=== PATIENT | female | born 1935 | race Caucasian/White ===

== ENCOUNTER 2022-08-26 10:53 | Emergency (ER) | payer MEDICARE, SELFPAY ==
[2022-08-26] VITALS (7 sets, daily range): BP systolic 128–187; BP diastolic 50–112; PULSE 62–107; RESP 16–24; TEMP 36.6–36.7; O2SAT 94–99; BMI 28.3
--- NOTE | ~2022-08-26 | XR_ITS ---
EXAMINATION: XR CHEST CLINICAL INFORMATION: Chest pain, shortness of breath. COMPARISON: 12/18/2016 chest radiograph. TECHNIQUE: 2 views of the chest were obtained. FINDINGS: No significant abnormality is noted involving the heart, lungs, mediastinum, bony thorax or soft tissues. XR/XR chest 2V IMPRESSION: No acute cardiopulmonary process.
--- OUTSIDE RECORDS SUMMARY | 2022-08-26 11:15 | XMS_ITS | Continuity of Care Document ---
:1935 Author Organization [facility] Adult Address [address] [place] [address]- Care Team Providers Name Role Phone Raza BARAHONA, Natalia Gonzales Primary Care Physician Encounter [facility] Date(s): 12/18/20 - 01/17/21 [facility] Adult [address] [place] [address]- Attending Physician: AdmGonzalez gomez Admitting Physician: Admtr, Ar8 Referring Physician: Admtr, Ar8 Allergies, Adverse Reactions, Alerts Substance Reaction Severity Status NKA Active Immunizations Given and Recorded Vaccine Date Status Refusal Reason influenza virus vaccine, inactivated 05/01/20 Given influenza virus vaccine, inactivated1 06/01/19 Given influenza virus vaccine, inactivated 05/25/18 Recorded Diphtheria/Tet/Pertussis, Acel (oldterm)2 03/05/17 Given pneumococcal 13-valent vaccine 10/09/16 Given 1Result Comment: [facility]-[id number] Note: declined Medications amLODIPine 10 mg oral tablet 10 mg, 1, tablet, By Mouth, Daily, # 90 tablet, Refills 0, Tot. Refills 0, Maintenance, 10/18/20 13:14:00 EDT, Route to Pharmacy Electronically, [facility] #[id number], Office visit needed for further refills., 150, cm, 05/01/20 9:47:00 EDT, Height Start Date: 10/18/20 Status: Orderedaspirin 81 mg oral delayed release tablet 81 mg, 1, tablet, By Mouth, Daily, # 30 tablet, Refills 0, Maintenance, 12/24/16 9:31:57 Start Date: 12/24/16 Status: Ordereddocusate sodium 100 mg oral capsule 100 mg, 1, capsule, By Mouth, 2 times a day, PRN, # 60 capsule, Refills 0, Tot. Refills 0, Maintenance, for constipation, 05/01/20 9:36:00 EDT, Route to Pharmacy Electronically, [facility] # [facility], 150, cm, 05/01/20 9:15:00 EDT, Height Start Date: 05/01/20 Stop Date: 05/31/20 Status: Orderedestradiol 0.1 mg/g vaginal cream See Instructions, 2 gm daily at bedtime for 2 weeks then reduce to 1gm daily at bedtime. then 1 gm 2times a week, # 42.5 Gm, 6 Refills, Maintenance, 09/12/19 16:11:00 EST, [facility] # 50, 150, cm, 09/12/19 11:05:00 EST, Height Start Date: 09/12/19 Status: Orderedfamotidine 20 mg oral tablet 20 mg, 1, tablet, By Mouth, 2 times a day, # 60 tablet, Refills 3, Tot. Refills 3, Maintenance, 05/01/20 9:36:00 EDT, Route to Pharmacy Electronically, [facility] # [facility], 150, cm, 05/01/20 9:15:00 EDT, Height Start Date: 05/01/20 Status: Orderedgabapentin 100 mg oral capsule 200 mg, 2, capsule, By Mouth, 3 times a day, # 180 capsule, Refills 1, Tot. Refills 1, Maintenance, 12/20/20 11:24:00 EDT, Route to Pharmacy Electronically, [facility] # [facility], 150, cm, 12/18/20 15:01:00 EDT, Height Start Date: 12/20/20 Status: Orderedhydrochlorothiazide-lisinopril 25 mg-20 mg oral tablet 1 tablet, By Mouth, Daily, # 90 tablet, 1 Refills, Maintenance, 07/19/20 13:21:00 EST, Tablet, [facility] # [facility], 1 tablet By Mouth Daily, 150, cm, 05/01/20 9:47:00 EDT, Height Start Date: 07/19/20 Status: OrderedtiZANidine 2 mg oral tablet See Instructions, PRN, take 1-2 tablets By Mouth Every 8 hours, # 30 tablet, Refills 0, Tot. Refills0, Maintenance, Pain , Moderate, 08/23/19 15:28:00 EST, Instructions Replace Required Details, [facility], [facility] # [facility],... Start Date: 08/23/19 Status: Ordered Problem List Condition Effective Dates Status Health Status Informant Arthritis(Confirmed) Active Benign hypertension(Confirmed) Active Chronic lower back pain(Confirmed) Active Constipation(Confirmed) Active Gout(Confirmed) Active Hyperglycemia(Confirmed) Active Osteopenia(Confirmed) Active Paresthesia(Confirmed) Active Social History Social History Type Response Smoking Status Never smoker entered on: 10/09/16 Sex
--- OUTSIDE RECORDS SUMMARY | 2022-08-26 11:15 | XMS_ITS | Continuity of Care Document ---
:1935 Author Organization [facility] Adult Address [address] [place] [address]- Care Team Providers Name Role Phone Raza BARAHONA, Natalia Gonzales Primary Care Physician Encounter [facility] Date(s): 09/12/19 - 09/22/19 [facility] Adult [address] [place] [address]- [facility] Attending Physician: Admtr, Ar8 Admitting Physician: Admtr, Jose8 Referring Physician: Admtr, Ar8 Allergies, Adverse Reactions, Alerts Substance Reaction Severity Status NKA Active Immunizations Given and Recorded Vaccine Date Status Refusal Reason influenza virus vaccine, inactivated1 06/01/19 Given influenza virus vaccine, inactivated 05/25/18 Recorded Diphtheria/Tet/Pertussis, Acel (oldterm)2 03/05/17 Given pneumococcal 13-valent vaccine 10/09/16 Given 1Result Comment: [facility]-[id number] Note: declined Medications amLODIPine 10 mg oral tablet 10 mg, 1, tablet, By Mouth, Daily, # 90 tablet, Refills 1, Tot. Refills 1, Maintenance, 04/25/19 11:26:15 EDT, Route to Pharmacy Electronically, [id number], [facility] # [facility] Start Date: 04/25/19 Status: Orderedaspirin 81 mg oral delayed release tablet 81 mg, 1, tablet, By Mouth, Daily, # 30 tablet, Refills 0, Maintenance, 12/24/16 9:31:57 Start Date: 12/24/16 Status: Orderedestradiol 0.1 mg/g vaginal cream See Instructions, 2 gm daily at bedtime for 2 weeks then reduce to 1gm daily at bedtime. then 1 gm 2times a week, # 42.5 Gm, 6 Refills, Maintenance, 09/12/19 16:11:00 EST, [facility] # 50, 150, cm, 09/12/19 11:05:00 EST, Height Start Date: 09/12/19 Status: Orderedgabapentin 100 mg oral capsule 200 mg, 2, capsule, By Mouth, 3 times a day, # 180 capsule, Refills 1, Tot. Refills 1, Maintenance, 09/12/19 11:00:00 EST, Route to Pharmacy Electronically, [facility] # 50, 150, cm, 09/12/19 10:43:00 EST, Height Start Date: 09/12/19 Status: Orderedhydrochlorothiazide-lisinopril 25 mg-20 mg oral tablet 1 tablet, By Mouth, Daily, # 90 tablet, 1 Refills, Maintenance, 03/17/19 15:07:22 EDT, Tablet, 1 tablet By Mouth Daily Start Date: 03/17/19 Status: OrderedtiZANidine 2 mg oral tablet See Instructions, PRN, take 1-2 tablets By Mouth Every 8 hours, # 30 tablet, Refills 0, Tot. Refills0, Maintenance, Pain , Moderate, 08/23/19 15:28:00 EST, Instructions Replace Required Details, [facility], [facility] # [facility],... Start Date: 08/23/19 Status: Ordered Problem List Condition Effective Dates Status Health Status Informant Arthritis(Confirmed) Active Benign hypertension(Confirmed) Active Chronic lower back pain(Confirmed) Active Constipation(Confirmed) Active Gout(Confirmed) Active Hyperglycemia(Confirmed) Active Osteopenia(Confirmed) Active Paresthesia(Confirmed) Active Social History Social History Type Response Smoking Status Never smoker entered on: 10/09/16 Sex
--- OUTSIDE RECORDS SUMMARY | 2022-08-26 11:15 | XMS_ITS | Continuity of Care Document ---
:1935 Author Organization [facility] Address [address] [place] [address]- Care Team Providers Name Role Phone Raza BARAHONA, Natalia Gonzales Primary Care Physician Encounter [facility] Date(s): 06/17/22 - 07/17/[address] [address] Attending Physician: Gonzalez Farrell Admitting Physician: AdmtrGonzalez Referring Physician: AdmtrGonzalez Allergies, Adverse Reactions, Alerts No Known Allergies Immunizations Given and Recorded Vaccine Date Status Refusal Reason influenza virus vaccine, inactivated 07/03/21 Recorded influenza virus vaccine, inactivated 05/01/20 Given influenza virus vaccine, inactivated1 06/01/19 Given influenza virus vaccine, inactivated 05/25/18 Recorded influenza virus vaccine, inactivated 05/17/18 Recorded influenza virus vaccine, inactivated 05/18/17 Recorded influenza virus vaccine, inactivated 05/31/16 Recorded influenza virus vaccine, inactivated 05/10/10 Recorded SARS-CoV-2 (COVID-19) mRNA-1273 vaccine 10/13/20 Recorded SARS-CoV-2 (COVID-19) mRNA-1273 vaccine 09/15/20 Recorded Diphtheria/Tet/Pertussis, Acel (oldterm)2 03/05/17 Given pneumococcal 13-valent vaccine 10/09/16 Given 1Result Comment: [facility]-[id number] Note: declined Medications amlodipine-benazepril 5 mg-40 mg oral capsule 1 capsule, By Mouth, Daily, # 30 capsule, 0 Refills, Maintenance, 04/28/22 13:29:00 EDT, Capsule, [id number], Partial fill upon patient request if the prescription is for a schedule II opioid drug., 1 capsule By Mouth Daily, 150, cm, 04/28/22... Start Date: 04/28/22 Status: Orderedaspirin 81 mg oral delayed release tablet 81 mg, 1, tablet, By Mouth, Daily, # 30 tablet, Refills 0, Maintenance, 12/24/16 9:31:57 Start Date: 12/24/16 Status: Ordereddocusate sodium 100 mg oral capsule 100 mg, 1, capsule, By Mouth, 2 times a day, PRN, # 60 capsule, Refills 0, Tot. Refills 0, Maintenance, for constipation, 05/01/20 9:36:00 EDT, Route to Pharmacy Electronically, [facility] # [facility], 150, cm, 05/01/20 9:15:00 EDT, Height Start Date: 05/01/20 Stop Date: 05/31/20 Status: Orderedestradiol 0.1 mg/g vaginal cream See Instructions, 2 gm daily at bedtime for 2 weeks then reduce to 1gm daily at bedtime. then 1 gm 2times a week, # 42.5 Gm, 6 Refills, Maintenance, 09/12/19 16:11:00 EST, [facility] # 50, 150, cm, 09/12/19 11:05:00 EST, Height Start Date: 09/12/19 Status: Orderedfamotidine 20 mg oral tablet 20 mg, 1, tablet, By Mouth, 2 times a day, # 60 tablet, Refills 3, Tot. Refills 3, Maintenance, 05/01/20 9:36:00 EDT, Route to Pharmacy Electronically, [facility] # [facility], 150, cm, 05/01/20 9:15:00 EDT, Height Start Date: 05/01/20 Status: Orderedgabapentin 100 mg oral capsule 200 mg, 2, capsule, By Mouth, 3 times a day, # 180 capsule, Refills 1, Tot. Refills 1, Maintenance, 01/08/22 10:45:00 EDT, [id number], [facility], cm, 01/08/22 10:44:00 EDT, Height Start Date: 01/08/22 Status: OrderedtiZANidine 2 mg oral tablet 4 mg, 2, tablet, By Mouth, 3 times a day, PRN, # 30 tablet, Refills 0, Tot. Refills 0, Maintenance, Pain , Severe, 06/02/22 14:44:00 EDT, Route to Pharmacy Electronically, [facility] #[id number], Partial fill upon patient request if the prescription is fo... Start Date: 06/02/22 Status: OrderedtiZANidine 2 mg oral tablet See Instructions, PRN, take 1-2 tablets By Mouth Every 8 hours, # 30 tablet, Refills 0, Tot. Refills0, Maintenance, Pain , Moderate, 08/23/19 15:28:00 EST, Instructions Replace Required Details, [facility], [facility] # [facility],... Start Date: 08/23/19 Status: Ordered Problem List Condition Confirmation Course Effective Dates Status Health Stat us Informant Arthritis Confirmed Active Benign hypertension Confirmed Active Chronic lower back Confirmed Active pain Constipation Confirmed Active Gout Confirmed Active Obese class I Confirmed Active Osteopenia Confirmed Active Paresthesia Confirmed Active Prediabetes Confirmed Active Social History Social History Type Response Smoking Status Never smoker entered on: 10/09/16 Sex Patient Care team information Care Team PersonnelName: Raza BARAHONA, Natalia Gonzales Position: [facility] Associate Professional Member Role: PCP Address: Address: [address] [place] [id number]- Care Team Related PersonsName: ALLEN KILPATRICK Address: [place] [address]
--- OUTSIDE RECORDS SUMMARY | 2022-08-26 11:15 | XMS_ITS | Continuity of Care Document ---
:1935 Author Organization [facility] Adult Address [address] [place] [address]- Care Team Providers Name Role Phone Raza BARAHONA, Natalia Gonzales Primary Care Physician Encounter [facility] Date(s): 02/06/22 - 02/13/22 [facility] Adult [address] [place] [address]- Encounter Diagnosis Benign hypertension (Discharge Diagnosis) - 02/06/22 Prediabetes (Discharge Diagnosis) - 02/06/22 Attending Physician: Navneet Saleem MD Referring Physician: Raza BARAHONA, Natalia Gonzales Allergies, Adverse Reactions, Alerts No Known Allergies Immunizations Given and Recorded Vaccine Date Status Refusal Reason influenza virus vaccine, inactivated 05/01/20 Given influenza virus vaccine, inactivated1 06/01/19 Given influenza virus vaccine, inactivated 05/25/18 Recorded Diphtheria/Tet/Pertussis, Acel (oldterm)2 03/05/17 Given pneumococcal 13-valent vaccine 10/09/16 Given 1Result Comment: [facility]-[id number] Note: declined Medications aspirin 81 mg oral delayed release tablet 81 mg, 1, tablet, By Mouth, Daily, # 30 tablet, Refills 0, Maintenance, 12/24/16 9:31:57 Start Date: 12/24/16 Status: Ordereddocusate sodium 100 mg oral capsule 100 mg, 1, capsule, By Mouth, 2 times a day, PRN, # 60 capsule, Refills 0, Tot. Refills 0, Maintenance, for constipation, 05/01/20 9:36:00 EDT, Route to Pharmacy Electronically, [facility], 150, cm, 05/01/20 9:15:00 EDT, Height Start Date: 05/01/20 Stop Date: 05/31/20 Status: Orderedestradiol 0.1 mg/g vaginal cream See Instructions, 2 gm daily at bedtime for 2 weeks then reduce to 1gm daily at bedtime. then 1 gm 2times a week, # 42.5 Gm, 6 Refills, Maintenance, 09/12/19 16:11:00 EST, [facility] # [facility], 150, cm, 09/12/19 11:05:00 EST, Height Start Date: 09/12/19 Status: Orderedfamotidine 20 mg oral tablet 20 mg, 1, tablet, By Mouth, 2 times a day, # 60 tablet, Refills 3, Tot. Refills 3, Maintenance, 05/01/20 9:36:00 EDT, Route to Pharmacy Electronically, [facility] # [facility], 150, cm, 05/01/20 9:15:00 EDT, Height Start Date: 05/01/20 Status: Orderedgabapentin 100 mg oral capsule 200 mg, 2, capsule, By Mouth, 3 times a day, # 180 capsule, Refills 1, Tot. Refills 1, Maintenance, 01/08/22 10:45:00 EDT, [id number], 150, cm, 01/08/22 10:44:00 EDT, Height Start Date: 01/08/22 Status: Orderedhydrochlorothiazide-lisinopril 25 mg-20 mg oral tablet 1 tablet, By Mouth, Daily, # 30 tablet, 6 Refills, Maintenance, 02/06/22 11:24:00 EDT, Tablet, Partial fill upon patient request if the prescription is for a schedule II opioid drug. Start Date: 02/06/22 Status: OrderedtiZANidine 2 mg oral tablet See Instructions, PRN, take 1-2 tablets By Mouth Every 8 hours, # 30 tablet, Refills 0, Tot. Refills0, Maintenance, Pain , Moderate, 08/23/19 15:28:00 EST, Instructions Replace Required Details, [facility] Electron[facility], [facility] # [facility],... Start Date: 08/23/19 Status: Ordered Problem List Condition Effective Dates Status Health Status Informant Arthritis(Confirmed) Active Benign hypertension(Confirmed) Active Chronic lower back pain(Confirmed) Active Constipation(Confirmed) Active Gout(Confirmed) Active Osteopenia(Confirmed) Active Paresthesia(Confirmed) Active Prediabetes(Confirmed) Active Diagnosis Diagnosis Type Effective Dates Health Clinical Infor mant Status Service Benign hypertension Discharge 02/06/22 Diagnosis Prediabetes Discharge 02/06/22 Diagnosis Vital Signs Most recent to oldest [Reference Range]: 1 2 Height 150 cm 150 cm (02/06/22 11:30 AM) (02/06/22 11:02 AM) Weight 65.5 kg (02/06/22 11:02 AM) Oxygen Saturation [94-100 %] 98 % (02/06/22 11:02 AM) Pulse Rate [55-90 bpm] 73 bpm (02/06/22 11:02 AM) Body Mass Index [18.5-24.99] 29.11 *H* (02/06/22 11:02 AM) Blood Pressure [90-138/55-84 mm Hg] 139/60 mm Hg 147/ 71 mm Hg *H* *H* (02/06/22 11:30 AM) (02/06/22 11:02 AM) Temperature [96.8-100.4 DegF] 98.5 DegF (02/06/22 11:02 AM) Blood pressure sites Arm, left (02/06/22 11:02 AM) Temperature Route Temporal (02/06/22 11:02 AM) Weight Obtained Via Standing scale (02/06/22 11:02 AM) Social History Social History Type Response Smoking Status Never smoker entered on: 10/09/16 Sex
--- OUTSIDE RECORDS SUMMARY | 2022-08-26 11:15 | XMS_ITS | Continuity of Care Document ---
:1935 Author Organization [facility] Adult Address [address] [place] [address]- Care Team Providers Name Role Phone Raza BARAHONA, Natalia Gonzales Primary Care Physician Encounter [facility] Date(s): 12/11/21 - 01/10/22 [facility] Adult [address] [place] [address]- Allergies, Adverse Reactions, Alerts No Known Allergies Immunizations Given and Recorded Vaccine Date Status Refusal Reason influenza virus vaccine, inactivated 05/01/20 Given influenza virus vaccine, inactivated1 06/01/19 Given influenza virus vaccine, inactivated 05/25/18 Recorded Diphtheria/Tet/Pertussis, Acel (oldterm)2 03/05/17 Given pneumococcal 13-valent vaccine 10/09/16 Given 1Result Comment: [facility]-[id number] Note: declined Medications aspirin 81 mg oral [...] 05/01/20 9:36:00 EDT, Route to Pharmacy Electronically, [facility] # [facility], 150, cm, 05/01/20 9:15:00 EDT, Height Start Date: 05/01/20 Stop Date: 05/31/20 Status: Orderedestradiol 0.1 mg/g vaginal cream See Instructions, 2 gm daily at bedtime for 2 weeks then reduce to 1gm daily at bedtime. then 1 gm 2times a week, # 42.5 Gm, 6 Refills, Maintenance, 09/12/19 16:11:00 EST, [facility] # [facility], 150, cm, 09/12/19 11:05:00 EST, Height Start Date: 09/12/19 Status: Orderedfamotidine 20 mg oral tablet 20 mg, 1, tablet, By Mouth, 2 times a day, # 60 tablet, Refills 3, Tot. Refills 3, Maintenance, 05/01/20 9:36:00 EDT, Route to Pharmacy Electronically, [facility] # [facility], 150, cm, 05/01/20 9:15:00 EDT, Height Start Date: 05/01/20 Status: Orderedgabapentin 100 mg oral capsule 200 mg, 2, capsule, By Mouth, 3 times a day, # 180 capsule, Refills 1, Tot. Refills 1, Maintenance, 01/08/22 10:45:00 EDT, [id number], [facility], cm, 01/08/22 10:44:00 EDT, Height Start Date: 01/08/22 Status: Orderedhydrochlorothiazide-losartan 25 mg-100 mg oral tablet 1 tablet, By Mouth, Daily, # 30 tablet, 0 Refills, Maintenance, 01/08/22 11:00:00 EDT, Tablet, [facility] #[id number], Partial fill upon patient request if the prescription is for a schedule II opioid drug., 1 tablet By Mouth Daily, 150, cm, 01/08/22 10:5... Start Date: 01/08/22 Status: OrderedtiZANidine 2 mg oral tablet See Instructions, PRN, take 1-2 tablets By Mouth Every 8 hours, # 30 tablet, Refills 0, Tot. Refills0, Maintenance, Pain , Moderate, 08/23/19 15:28:00 EST, Instructions Replace Required Details, [facility] Electron[facility], [facility] # [facility],... Start Date: 08/23/19 Status: Ordered Problem List Condition Effective Dates Status Health Status Informant Arthritis(Confirmed) Active Benign hypertension(Confirmed) Active Chronic lower back pain(Confirmed) Active Constipation(Confirmed) Active Gout(Confirmed) Active Hyperglycemia(Confirmed) Active Osteopenia(Confirmed) Active Paresthesia(Confirmed) Active Social History Social History Type Response Smoking Status Never smoker entered on: 10/09/16 Sex
--- OUTSIDE RECORDS SUMMARY | 2022-08-26 11:15 | XMS_ITS | Continuity of Care Document ---
:1935 Author Organization [facility] Address [address] [place] [address]- Care Team Providers Name Role Phone Raza BARAHONA, Natalia Gonzales Primary Care Physician Encounter [facility] Date(s): 06/04/22 - 07/24/[address] [address]- Encounter Diagnosis Cervicalgia (Final) - Discharge Disposition: A-D/C Home Attending Physician: Natalia Person NP Admitting Physician: Natalia Person NP Referring Physician: Raza BARAHONA, Natalia Gonzales Allergies, [...] pneumococcal 13-valent vaccine 10/09/16 Given 1Result Comment: [facility]-[id number] Note: declined Medications amlodipine-benazepril 5 mg-40 mg oral capsule 1 capsule, By Mouth, Daily, # 30 capsule, 0 Refills, Maintenance, 04/28/22 13:29:00 EDT, Capsule, [id number], Partial fill upon patient request if the [...] 05/01/20 9:36:00 EDT, Route to Pharmacy Electronically, [facility], 150, cm, 05/01/20 9:15:00 EDT, Height Start Date: 05/01/20 Stop Date: 05/31/20 Status: Orderedestradiol 0.1 mg/g vaginal cream See Instructions, 2 gm daily at bedtime for 2 weeks then reduce to 1gm daily at bedtime. then 1 gm 2times a week, # 42.5 Gm, 6 Refills, Maintenance, 09/12/19 16:11:00 EST, [facility] # [facility], 150, cm, 09/12/19 11:05:00 EST, Height Start Date: 09/12/19 Status: Orderedfamotidine 20 mg oral tablet 20 mg, 1, tablet, By Mouth, 2 times a day, # 60 tablet, Refills 3, Tot. Refills 3, Maintenance, 05/01/20 9:36:00 EDT, Route to Pharmacy Electronically, [facility] # [facility], 150, cm, 05/01/20 9:15:00 EDT, Height Start Date: 05/01/20 Status: Orderedgabapentin 100 mg oral capsule 200 mg, 2, capsule, By Mouth, 3 times a day, # 180 capsule, Refills 1, Tot. Refills 1, Maintenance, 01/08/22 10:45:00 EDT, [id number], cm, 01/08/22 10:44:00 EDT, Height Start Date: 01/08/22 Status: OrderedtiZANidine 2 mg oral tablet 4 mg, 2, tablet, By Mouth, 3 times a day, PRN, # 30 tablet, Refills 0, Tot. Refills 0, Maintenance, Pain , Severe, 06/02/22 14:44:00 EDT, Route to Pharmacy Electronically, [facility] #[id number], Partial fill upon patient request if the prescription is fo... Start Date: 06/02/22 Status: OrderedtiZANidine 2 mg oral tablet See Instructions, PRN, take 1-2 tablets By Mouth Every 8 hours, # 30 tablet, Refills 0, Tot. Refills0, Maintenance, Pain , Moderate, 08/23/19 15:28:00 EST, Instructions Replace Required Details, [facility] Electron[facility], [facility] # [facility],... Start Date: 08/23/19 Status: [...] Team PersonnelName: Raza BARAHONA, Natalia Gonzales Position: [facility] Associate Professional Member Role: PCP Address: Address: [address] [place] [address]- Care Team Related PersonsName: ALLEN KILPATRICK Address: [place] [address]
--- OUTSIDE RECORDS SUMMARY | 2022-08-26 11:15 | XMS_ITS | Continuity of Care Document ---
:1935 Author Organization [facility] Adult Address [address] [place] [address]- Care Team Providers Name Role Phone Raza BARAHONA, Natalia Gonzales Primary Care Physician Encounter [facility] Date(s): 02/27/20 - 03/28/20 [facility] [address] [place] [address]- [facility] Attending Physician: Admjason, Jose8 Admitting Physician: Admtr, Jose8 Referring Physician: Admtr, Ar8 Allergies, Adverse Reactions, Alerts Substance Reaction Severity Status NKA Active Immunizations Given and Recorded Vaccine Date Status Refusal Reason influenza virus vaccine, inactivated1 06/01/19 Given influenza virus vaccine, inactivated 05/25/18 Recorded Diphtheria/Tet/Pertussis, Acel (oldterm)2 03/05/17 Given pneumococcal 13-valent vaccine 10/09/16 Given 1Result Comment: [id number] Note: declined Medications amLODIPine 10 mg oral tablet 10 mg, 1, tablet, By Mouth, Daily, # 90 tablet, Refills 0, Tot. Refills 0, Maintenance, 10/20/19 14:18:00 EDT, Route to Pharmacy Electronically, [facility] # [facility], 150, cm, 09/12/19 11:05:00 EST, Height Start Date: 10/20/19 Status: Orderedaspirin 81 mg oral delayed release [...] 09/12/19 11:00:00 EST, Route to Pharmacy Electronically, [facility] # [facility], 150, cm, 09/12/19 10:43:00 EST, Height Start Date: 09/12/19 Status: Orderedhydrochlorothiazide-lisinopril 25 mg-20 mg oral tablet 1 tablet, By Mouth, Daily, # 90 tablet, 1 Refills, Maintenance, 10/10/19 15:34:00 EDT, Tablet, [facility] # [facility], 1 tablet By Mouth Daily, 150, cm, 09/12/19 11:05:00 EST, Height Start Date: 10/10/19 Status: OrderedtiZANidine 2 mg oral tablet See [...]
--- OUTSIDE RECORDS SUMMARY | 2022-08-26 11:15 | XMS_ITS | Continuity of Care Document ---
:1935 Author Organization [facility] [place] Adult Address [address] [place] [address]- Care Team Providers Name Role Phone Raza BARAHONA, Natalia Gonzales Primary Care Physician Encounter [facility] [place] Date(s): 12/24/21 - 01/23/22 [facility] [place] Adult [address] [place] [address]- Allergies, Adverse Reactions, Alerts No Known Allergies Immunizations Given and Recorded Vaccine Date Status Refusal Reason influenza virus vaccine, inactivated 05/01/20 Given influenza virus vaccine, inactivated1 06/01/19 Given influenza virus vaccine, inactivated 05/25/18 Recorded Diphtheria/Tet/Pertussis, Acel (oldterm)2 03/05/17 Given pneumococcal 13-valent vaccine 10/09/16 Given 1Result Comment: [facility]-[id number] Note: declined Medications aspirin 81 mg oral [...] 05/01/20 9:36:00 EDT, Route to Pharmacy Electronically, [facility] # [facility], 150, cm, 05/01/20 9:15:00 EDT, Height Start Date: 05/01/20 Stop Date: 05/31/20 Status: Orderedestradiol 0.1 mg/g vaginal cream See Instructions, 2 gm daily at bedtime for 2 weeks then reduce to 1gm daily at bedtime. then 1 gm 2times a week, # 42.5 Gm, 6 Refills, Maintenance, 09/12/19 16:11:00 EST, [facility] # [facility], 150, cm, 09/12/19 11:05:00 EST, Height Start Date: 09/12/19 Status: Orderedfamotidine 20 mg oral tablet 20 mg, 1, tablet, By Mouth, 2 times a day, # 60 tablet, Refills 3, Tot. Refills 3, Maintenance, 05/01/20 9:36:00 EDT, Route to Pharmacy Electronically, [facility] # [facility], 150, cm, 05/01/20 9:15:00 EDT, Height Start Date: 05/01/20 Status: Orderedgabapentin 100 mg oral capsule 200 mg, 2, capsule, By Mouth, 3 times a day, # 180 capsule, Refills 1, Tot. Refills 1, Maintenance, 01/08/22 10:45:00 EDT, [id number], cm, 01/08/22 10:44:00 EDT, Height Start Date: 01/08/22 Status: Orderedhydrochlorothiazide-losartan 25 mg-100 mg oral tablet 1 tablet, By Mouth, Daily, # 30 tablet, 0 Refills, Maintenance, 01/08/22 11:00:00 EDT, Tablet, [facility]/pharmacy #[id number], Partial fill upon patient [...] Instructions Replace Required Details, [facility], [facility] # [facility],... Start Date: 08/23/19 Status: Ordered Problem List Condition Effective Dates Status Health Status Informant Arthritis(Confirmed) Active Benign hypertension(Confirmed) Active Chronic lower back pain(Confirmed) Active Constipation(Confirmed) Active Gout(Confirmed) Active Hyperglycemia(Confirmed) Active Osteopenia(Confirmed) Active Paresthesia(Confirmed) Active Social History Social History Type Response Smoking Status Never smoker entered on: 10/09/16 Sex
--- OUTSIDE RECORDS SUMMARY | 2022-08-26 11:15 | XMS_ITS | Continuity of Care Document ---
:1935 Author Organization [facility] Adult Address [address] [place] [address]- Care Team Providers Name Role Phone Raza BARAHONA, Natalia Gonzales Primary Care Physician Encounter [facility] [place] Date(s): 02/17/20 - 03/28/20 [facility] Adult [address] [place] [address]- [facility] Attending Physician: Natalia Person NP Allergies, Adverse Reactions, Alerts Substance Reaction Severity Status NKA Active Immunizations Given and Recorded Vaccine Date Status Refusal Reason influenza virus vaccine, inactivated1 06/01/19 Given influenza virus vaccine, inactivated 05/25/18 Recorded Diphtheria/Tet/Pertussis, Acel (oldterm)2 03/05/17 Given pneumococcal 13-valent vaccine 10/09/16 Given 1Result Comment: [facility]-[id number] Note: declined Medications amLODIPine 10 mg oral tablet 10 mg, 1, tablet, By Mouth, Daily, # 90 tablet, Refills 0, Tot. Refills 0, Maintenance, 10/20/19 14:18:00 EDT, Route to Pharmacy Electronically, [facility] # 50, 150, cm, 09/12/19 11:05:00 [...] 6 Refills, Maintenance, 09/12/19 16:11:00 EST, [facility] # [facility], 150, cm, 09/12/19 11:05:00 EST, Height Start Date: 09/12/19 Status: Orderedgabapentin 100 mg oral capsule 200 mg, 2, capsule, By Mouth, 3 times a day, # 180 capsule, Refills 1, Tot. Refills 1, Maintenance, 09/12/19 11:00:00 EST, Route to Pharmacy Electronically, [facility] # [facility], 150, cm, 09/12/19 10:43:00 EST, Height Start Date: 09/12/19 Status: Orderedhydrochlorothiazide-lisinopril 25 mg-20 mg oral tablet 1 tablet, By Mouth, Daily, # 90 tablet, 1 Refills, Maintenance, 10/10/19 15:34:00 EDT, [facility], 1 tablet By Mouth Daily, 150, cm, 09/12/19 11:05:00 EST, Height Start Date: 10/10/19 Status: OrderedtiZANidine 2 mg oral tablet See Instructions, PRN, take 1-2 tablets By Mouth Every 8 hours, # 30 tablet, Refills 0, Tot. Refills0, Maintenance, Pain , Moderate, 08/23/19 15:28:00 EST, Instructions Replace Required Details, [facility], [facility] # [facility],... Start Date: 08/23/19 Status: Ordered Problem List Condition Effective Dates Status Health Status Informant Arthritis(Confirmed) Active Benign hypertension(Confirmed) Active Chronic lower back pain(Confirmed) Active Constipation(Confirmed) Active Gout(Confirmed) Active Hyperglycemia(Confirmed) Active Osteopenia(Confirmed) Active Paresthesia(Confirmed) Active Social History Social History Type Response Smoking Status Never smoker entered on: 10/09/16 Sex
--- OUTSIDE RECORDS SUMMARY | 2022-08-26 11:16 | XMS_ITS | Continuity of Care Document ---
:1935 Author Organization [facility] Adult Address [address] [place] [address]- Care Team Providers Name Role Phone Raza BARAHONA, Natalia Gonzales Primary Care Physician [place] [facility] [place]): [place] 06/09/22 [facility] Adult [address] [place] [address]- Encounter Diagnosis Benign hypertension (Discharge Diagnosis) - 06/02/22 Attending Physician: Danyel BARAHONA, Luma Clarke Referring Physician: Navneet Saleem MD Allergies, Adverse Reactions, Alerts No Known Allergies [...] pneumococcal 13-valent vaccine 10/09/16 Given 1Result Comment: [facility]-[id number] Note: declined Medications amlodipine-benazepril 5 mg-40 mg oral capsule 1 capsule, By Mouth, Daily, # 30 capsule, 0 Refills, Maintenance, 04/28/22 13:29:00 EDT, Capsule, [id number], Partial fill upon patient request if the [...] 05/01/20 9:36:00 EDT, Route to Pharmacy Electronically, [facility] # [facility], 150, cm, 05/01/20 9:15:00 EDT, Height Start Date: 05/01/20 Stop Date: 05/31/20 Status: Orderedestradiol 0.1 mg/g vaginal cream See Instructions, 2 gm daily at bedtime for 2 weeks then reduce to 1gm daily at bedtime. then 1 gm 2times a week, # 42.5 Gm, 6 Refills, Maintenance, 09/12/19 16:11:00 EST, [facility] # [facility], 150, cm, 09/12/19 11:05:00 EST, Height Start Date: 09/12/19 Status: Orderedfamotidine 20 mg oral tablet 20 mg, 1, tablet, By Mouth, 2 times a day, # 60 tablet, Refills 3, Tot. Refills 3, Maintenance, 05/01/20 9:36:00 EDT, Route to Pharmacy Electronically, [facility] # [facility], 150, cm, 05/01/20 9:15:00 EDT, Height Start Date: 05/01/20 Status: Orderedgabapentin 100 mg oral capsule 200 mg, 2, capsule, By Mouth, 3 times a day, # 180 capsule, Refills 1, Tot. Refills 1, Maintenance, 01/08/22 10:45:00 EDT, [id number], cm, 01/08/22 10:44:00 EDT, Height Start Date: 01/08/22 Status: OrderedtiZANidine 2 mg oral tablet 4 mg, 2, tablet, By Mouth, 3 times a day, PRN, # 30 tablet, Refills 0, Tot. Refills 0, Maintenance, Pain , Severe, 06/02/22 14:44:00 EDT, Route to Pharmacy Electronically, [facility] #[id number], Partial fill upon patient request if the prescription is fo... Start Date: 06/02/22 Status: OrderedtiZANidine 2 mg oral tablet See Instructions, PRN, take 1-2 tablets By Mouth Every 8 hours, # 30 tablet, Refills 0, Tot. Refills0, Maintenance, Pain , Moderate, 08/23/19 15:28:00 EST, Instructions Replace Required Details, [facility], [facility] # [facility],... Start Date: 08/23/19 Status: Ordered Problem List Condition Confirmation Course Effective Dates Status Health Stat us Informant Arthritis Confirmed Active Benign hypertension Confirmed Active Chronic lower back Confirmed Active pain Constipation Confirmed Active Gout Confirmed Active Obese class I Confirmed Active Osteopenia Confirmed Active Paresthesia Confirmed Active Prediabetes Confirmed Active Diagnosis Diagnosis Type Effective Dates Health Clinical [facility] Status Service Benign hypertension Discharge 06/02/22 Diagnosis Vital Signs Most recent to oldest 1 2 3 [Reference Range]: Height 150 cm 150 cm 150 cm (06/02/22 1:34 PM) (06/02/22 1:34 PM) (06/02/22 1:09 PM) Weight 72.7 kg (06/02/22 1:09 PM) Oxygen Saturation [94-100 %] 99 % (06/02/22 1:09 PM) Pulse Rate [55-90 bpm] 81 bpm (06/02/22 1:09 PM) Body Mass Index [18.5-24.99 32.31 kg/m2 kg/m2] *>HHI* (06/02/22 1:09 PM) Blood Pressure [90-138/55-84 159/53 mm Hg 159/57 mm Hg 159 /61 mm Hg mm Hg] *H* *H* *H* (06/02/22 1:34 PM) (06/02/22 1:34 PM) (06/02/22 1:09 PM) Blood pressure sites Arm, left (06/02/22 1:09 PM) Weight Obtained Via Standing scale (06/02/22 1:09 PM) Social History Social History Type Response Smoking Status Never smoker entered on: 10/09/16 Sex Patient Care team information Care Team PersonnelName: Raza BARAHONA, Natalia Gonzales Position: S PCO Associate Professional Member Role: PCP Address: Address: [address] [place] [address]- Care Team Related PersonsName: ALLEN KILPATRICK Address: [place] [address]
--- OUTSIDE RECORDS SUMMARY | 2022-08-26 11:16 | XMS_ITS | Continuity of Care Document ---
:1935 Author Organization [facility] Address [address] [place] [address]- Care Team Providers Name Role Phone Raza BARAHONA, Natalia Gonzales Primary Care Physician [place] [facility] [place] Date(s): 09/12/19 - 09/12/[address] [address]- [facility] Attending Physician: Natalia Person NP Allergies, Adverse Reactions, Alerts Substance Reaction Severity Status NKA Active Immunizations Given and Recorded Vaccine Date Status Refusal Reason influenza virus vaccine, inactivated1 06/01/19 Given influenza virus vaccine, inactivated 05/25/18 Recorded Diphtheria/Tet/Pertussis, Acel (oldterm)2 03/05/17 Given pneumococcal 13-valent vaccine 10/09/16 Given 1Result Comment: [facility]-[id number] Note: declined Medications amLODIPine 10 mg oral tablet 10 mg, 1, tablet, By Mouth, Daily, # 90 tablet, Refills 1, Tot. Refills 1, Maintenance, 04/25/19 11:26:15 EDT, Route to Pharmacy Electronically, [id number], [facility] # [facility] Start Date: [...] 09/12/19 11:00:00 EST, Route to Pharmacy Electronically, [facility] # [facility], 150, cm, 09/12/19 10:43:00 [...] Active Hyperglycemia(Confirmed) Active Osteopenia(Confirmed) Active Paresthesia(Confirmed) Active Results Orders for Microbiology Reports Name Date Urine Culture (URINE CULTURE) 09/12/19 Microbiology Reports TEST:Urine Culture STATUS:Unauthenticated BODY SITE: SOURCE:URINE COLLECTED DATE/TIME:09/12/19 11:38 AMUrine Culture SPECIMEN DESCRIPTION : URINE CLEAN CATCH/MIDSTREAM SPECIAL REQUESTS : NONE Reflexed from [id number] REPORT STATUS : PRELIMINARY REPORT Social History Social History Type Response Smoking Status Never smoker entered on: 10/09/16 Sex
--- OUTSIDE RECORDS SUMMARY | 2022-08-26 11:16 | XMS_ITS | Continuity of Care Document ---
:1935 Author Organization [facility] Adult Address [address] [place] [address]- Care Team Providers Name Role Phone Raza BARAHONA, Natalia Gonzales Primary Care Physician Encounter [facility] [place] Date(s): 06/02/22 - 07/02/22 [facility] Adult [address] [place] [address]- Attending Physician: Admjason, Gonzalez Admitting Physician: Admtr, Ar8 Referring Physician: Admtr, Ar8 Allergies, Adverse Reactions, Alerts No Known Allergies [...] pneumococcal 13-valent vaccine 10/09/16 Given 1Result Comment: [facility]-[id number] Note: declined Medications amlodipine-benazepril 5 mg-40 mg oral capsule 1 capsule, By Mouth, Daily, # 30 capsule, 0 Refills, Maintenance, 04/28/22 13:29:00 EDT, [facility]apsule, [id number], Partial fill upon patient request if the [...] 01/08/22 10:45:00 EDT, [id number], cm, 01/08/22 10:44:00 EDT, Height Start Date: 01/08/22 Status: OrderedtiZANidine 2 mg oral tablet 4 mg, 2, tablet, By Mouth, 3 times a day, PRN, # 30 tablet, Refills 0, Tot. Refills 0, Maintenance, Pain , Severe, 06/02/22 14:44:00 EDT, Route to Pharmacy Electronically, [facility]/pharmacy #[id number], Partial fill upon patient request if the prescription is fo... Start Date: 06/02/22 Status: OrderedtiZANidine 2 mg oral tablet See Instructions, PRN, take 1-2 tablets By Mouth Every 8 hours, # 30 tablet, Refills 0, Tot. Refills0, Maintenance, Pain , Moderate, 08/23/19 15:28:00 EST, Instructions Replace Required Details, [facility] Electron[facility], [email or web address] # [facility],... Start Date: 08/23/19 Status: [...] Status Never smoker entered on: 10/09/16 Sex EKG study Event Display: EKG Authored Date: Note Event Display: Non BH Lab Results Authored Date: Event Display: Non BH Cardiovascular Results Authored Date: Event Display: Non BH Lab Results Authored Date: Patient Care team information Care Team PersonnelName: Raza BARAHONA, Natalia Gonzales Position: S PCO Associate Professional Member Role: PCP Address: Address: [address] [place] [address]- Care Team Related PersonsName: ALLEN KILPATRICK Address: [place] [address]
--- OUTSIDE RECORDS SUMMARY | 2022-08-26 11:16 | XMS_ITS | Continuity of Care Document ---
:1935 Author Organization [facility] Address [address] [place] [address]- Care Team Providers Name Role Phone Raza BARAHONA, Natalia Gonzales Primary Care Physician Encounter [facility] [place] [facility] [place] [id number] Date(s): 12/06/21 - 01/05/22 [facility] [address], [place] [address] Attending Physician: Gonzalez Farrell Admitting Physician: AdmGonzalez gomez Referring Physician: AdmtrGonzalez Allergies, Adverse Reactions, Alerts No Known Allergies Immunizations Given and Recorded Vaccine Date Status Refusal Reason influenza virus vaccine, inactivated 05/01/20 Given influenza virus vaccine, inactivated1 06/01/19 Given influenza virus vaccine, inactivated 05/25/18 Recorded Diphtheria/Tet/Pertussis, Acel (oldterm)2 03/05/17 Given pneumococcal 13-valent vaccine 10/09/16 Given 1Result Comment: [facility]-[id number] Note: declined Medications amLODIPine 10 mg oral tablet 1 tablet, By Mouth, Daily, # 90 tablet, 0 Refills, Maintenance, 12/31/21 15:31:00 EDT, [facility]/pharm[facility] #[id number], 150, cm, 09/19/21 15:50:00 EST, Height Start Date: 12/31/21 Status: Orderedaspirin 81 mg oral delayed release tablet 81 mg, 1, tablet, By Mouth, Daily, # 30 tablet, Refills 0, Maintenance, 12/24/16 9:31:57 Start Date: 12/24/16 Status: Ordereddocusate sodium 100 mg oral capsule 100 mg, 1, capsule, By Mouth, 2 times a day, PRN, # 60 capsule, Refills 0, Tot. Refills 0, Maintenance, for constipation, 05/01/20 9:36:00 EDT, Route to Pharmacy Electronically, [facility] # [facility], 150, cm, 05/01/20 9:15:00 EDT, Height Start Date: 05/01/20 Stop Date: 05/31/20 Status: Orderedestradiol 0.1 mg/g vaginal cream See Instructions, 2 gm daily at bedtime for 2 weeks then reduce to 1gm daily at bedtime. then 1 gm 2times a week, # 42.5 Gm, 6 Refills, Maintenance, 09/12/19 16:11:00 EST, [facility] # [facility], 150, cm, 09/12/19 11:05:00 EST, Height Start Date: 09/12/19 Status: Orderedfamotidine 20 mg oral tablet 20 mg, 1, tablet, By Mouth, 2 times a day, # 60 tablet, Refills 3, Tot. Refills 3, Maintenance, 05/01/20 9:36:00 EDT, Route to Pharmacy Electronically, [facility] # [facility], 150, cm, 05/01/20 9:15:00 EDT, Height Start Date: 05/01/20 Status: Orderedgabapentin 100 mg oral capsule 200 mg, 2, capsule, By Mouth, 3 times a day, # 180 capsule, Refills 1, Tot. Refills 1, Maintenance, 12/20/20 11:24:00 EDT, Route to Pharmacy Electronically, [facility] # [facility], 150, cm, 12/18/20 15:01:00 EDT, Height Start Date: 12/20/20 Status: Orderedhydrochlorothiazide-lisinopril 25 mg-20 mg oral tablet 1 tablet, By Mouth, Daily, # 90 tablet, 1 Refills, Maintenance, 07/19/20 13:21:00 EST, Tablet, [facility], 1 tablet By Mouth Daily, 150, cm, 05/01/20 9:47:00 EDT, Height Start Date: 07/19/20 Status: OrderedPaxlovid Rx Paxlovid Rx, See Instructions, # 30 tablet, Refills 0, Tot. Refills 0, Maintenance, 300mg nirmatrelvir (two 150mg tablets) with 100mg ritonavir (one tablet). All 3 tablets taken together twice daily for 5 days, with or without food., 12/06/21 10:53:00... Start Date: 12/06/21 Status: OrderedtiZANidine 2 mg oral tablet See Instructions, PRN, take 1-2 tablets By Mouth Every 8 hours, # 30 tablet, Refills 0, Tot. Refills0, Maintenance, Pain , Moderate, 08/23/19 15:28:00 EST, Instructions Replace Required Details, [facility], [facility] # [facility],... Start Date: 08/23/19 Status: Ordered Problem List Condition Effective Dates Status Health Status Informant Arthritis(Confirmed) Active Benign hypertension(Confirmed) Active Chronic lower back pain(Confirmed) Active Constipation(Confirmed) Active Gout(Confirmed) Active Hyperglycemia(Confirmed) Active Obese class I(Confirmed) Active Osteopenia(Confirmed) Active Paresthesia(Confirmed) Active Social History Social History Type Response Smoking Status Never smoker entered on: 10/09/16 Sex
--- OUTSIDE RECORDS SUMMARY | 2022-08-26 11:16 | XMS_ITS | Continuity of Care Document ---
:1935 Author Organization [facility] Adult Address [address] [place] [address]- Care Team Providers Name Role Phone Raza BARAHONA, Natalia Gonzales Primary Care Physician Encounter [facility] [place] Date(s): 12/20/21 - 01/26/22 [facility] Adult [address] [place] [address]- Attending Physician: Not on Staff, Attending MD Allergies, Adverse Reactions, Alerts No Known Allergies Immunizations Given and Recorded Vaccine Date Status Refusal Reason influenza virus vaccine, inactivated 05/01/20 Given influenza virus vaccine, inactivated1 06/01/19 Given influenza virus vaccine, inactivated 05/25/18 Recorded Diphtheria/Tet/Pertussis, Acel (oldterm)2 03/05/17 Given pneumococcal 13-valent vaccine 10/09/16 Given 1Result Comment: [facility]-[id number] Note: declined Medications aspirin 81 mg oral [...] 05/01/20 9:36:00 EDT, Route to Pharmacy Electronically, [facility] # [facility], 150, cm, 05/01/20 9:15:00 [...] 01/08/22 10:45:00 EDT, [id number], cm, 01/08/22 10:44:00 EDT, Height Start Date: 01/08/22 Status: Orderedhydrochlorothiazide-losartan 25 mg-100 mg oral tablet 1 tablet, By Mouth, Daily, # 30 tablet, 0 Refills, Maintenance, 01/08/22 11:00:00 EDT, Tablet, [facility]/pharmacy #[id number], Partial fill upon patient request if [...] Instructions Replace Required Details, [facility], [facility] # [facility],... Start Date: 08/23/19 Status: Ordered Problem List Condition Effective Dates Status Health Status Informant Arthritis(Confirmed) Active Benign hypertension(Confirmed) Active Chronic lower back pain(Confirmed) Active Constipation(Confirmed) Active Gout(Confirmed) Active Hyperglycemia(Confirmed) Active Osteopenia(Confirmed) Active Paresthesia(Confirmed) Active Social History Social History Type Response Smoking Status Never smoker entered on: 10/09/16 Sex
--- OUTSIDE RECORDS SUMMARY | 2022-08-26 11:16 | XMS_ITS | Continuity of Care Document ---
:1935 Author Organization [facility] Adult Address [address] [place] [address]- Care Team Providers Name Role Phone Raza BARAHONA, Natalia Gonzales Primary Care Physician Encounter [facility] Date(s): 09/19/21 - 09/26/21 [facility] Adult [address] [place] [address]- Attending Physician: Harper BANEGAS, Navneet Corley Allergies, Adverse Reactions, Alerts No Known Allergies Immunizations Given and Recorded Vaccine Date Status Refusal Reason influenza virus vaccine, inactivated 05/01/20 Given influenza virus vaccine, inactivated1 06/01/19 Given influenza virus vaccine, inactivated 05/25/18 Recorded Diphtheria/Tet/Pertussis, Acel (oldterm)2 03/05/17 Given pneumococcal 13-valent vaccine 10/09/16 Given 1Result Comment: [facility]-[id number] Note: declined Medications amLODIPine 10 mg oral tablet See Instructions, TAKE ONE TABLET BY MOUTH ONCE DAILY, # 90 tablet, 0 Refills, 09/20/21 9:15:00 EST,[facility] #[id number], 150, cm, 09/19/21 15:50:00 EST, Height Start Date: 09/20/21 Status: Orderedaspirin 81 mg oral delayed release tablet 81 mg, 1, tablet, By Mouth, Daily, # 30 tablet, Refills 0, Maintenance, 12/24/16 9:31:57 Start Date: 12/24/16 Status: Ordereddocusate sodium 100 mg oral capsule 100 mg, 1, capsule, By Mouth, 2 times a day, PRN, # 60 capsule, Refills 0, Tot. Refills 0, Maintenance, for constipation, 05/01/20 9:36:00 EDT, Route to Pharmacy Electronically, [facility], 150, cm, 05/01/20 9:15:00 [...] 12/20/20 11:24:00 EDT, Route to Pharmacy Electronically, [facility] # [facility], 150, cm, 12/18/20 15:01:00 EDT, Height Start Date: 12/20/20 Status: Orderedhydrochlorothiazide-lisinopril 25 mg-20 mg oral tablet 1 tablet, By Mouth, Daily, # 90 tablet, 1 Refills, Maintenance, 07/19/20 13:21:00 EST, Tablet, [facility], 1 tablet By Mouth Daily, 150, cm, 05/01/20 9:47:00 EDT, Height Start Date: 07/19/20 Status: OrderedtiZANidine 2 mg oral tablet See Instructions, PRN, take 1-2 tablets By Mouth Every 8 hours, # 30 tablet, Refills 0, Tot. Refills0, Maintenance, Pain , Moderate, 08/23/19 15:28:00 EST, Instructions Replace Required Details, [facility], [facility] # [facility],... Start Date: 08/23/19 Status: Ordered Problem List Condition Effective Dates Status Health Status Informant Arthritis(Confirmed) Active Benign hypertension(Confirmed) Active Chronic lower back pain(Confirmed) Active Constipation(Confirmed) Active Gout(Confirmed) Active Hyperglycemia(Confirmed) Active Obese class I(Confirmed) Active Osteopenia(Confirmed) Active Paresthesia(Confirmed) Active Vital Signs Most recent to oldest [Reference Range]: 1 Height 150 cm (09/19/21 3:50 PM) Weight 68.9 kg (09/19/21 3:50 PM) Oxygen Saturation [94-100 %] 98 % (09/19/21 3:50 PM) Pulse Rate [55-90 bpm] 82 bpm (09/19/21 3:50 PM) Body Mass Index [18.5-24.99] 30.62 *>HHI* (09/19/21 3:50 PM) Blood Pressure [90-138/55-84 mm Hg] 155/52 mm Hg *H* (09/19/21 3:50 PM) Blood pressure sites Arm, left (09/19/21 3:50 PM) Weight Obtained Via Standing scale (09/19/21 3:50 PM) Social History Social History Type Response Smoking Status Never smoker entered on: 10/09/16 Sex
--- OUTSIDE RECORDS SUMMARY | 2022-08-26 11:16 | XMS_ITS | Continuity of Care Document ---
:1935 Author Organization [facility] [place] Adult Address [address] [place] [address]- Care Team Providers Name Role Phone Raza BARAHONA, Natalia Gonzales Primary Care Physician En[place] [facility] [place](s): 05/01/20 - 05/08/20 [facility] [place] Adult [address] [place] [address]- [facility] Encounter Diagnosis Posterior neck pain (Discharge Diagnosis) - 05/01/20 Gastric reflux (Discharge Diagnosis) - 05/01/20 Constipation (Discharge Diagnosis) - 05/01/20 Carpal tunnel syndrome (Discharge Diagnosis) - 05/01/20 Attending Physician: Raza BARAHONA, Natalia Gonzales Allergies, Adverse Reactions, Alerts Substance Reaction Severity Status NKA Active Immunizations Given and Recorded Vaccine Date Status Refusal Reason influenza virus vaccine, inactivated 05/01/20 Given influenza virus vaccine, inactivated1 06/01/19 Given influenza virus vaccine, inactivated 05/25/18 Recorded Diphtheria/Tet/Pertussis, Acel (oldterm)2 03/05/17 Given pneumococcal 13-valent vaccine 10/09/16 Given 1Result Comment: [facility]-[id number] Note: declined Medications amLODIPine 10 mg oral tablet 10 mg, 1, tablet, By Mouth, Daily, # 90 tablet, Refills 1, Tot. Refills 1, Maintenance, 04/25/20 14:34:00 EDT, Route to Pharmacy Electronically, [facility] # [facility], 150, cm, 09/12/19 11:05:00 EST, Height Start Date: 04/25/20 Status: Orderedaspirin 81 mg oral delayed release tablet 81 mg, 1, tablet, By Mouth, Daily, # 30 tablet, Refills 0, Maintenance, 12/24/16 9:31:57 Start Date: 12/24/16 Status: Ordereddocusate sodium 100 mg oral capsule 100 mg, 1, capsule, By Mouth, 2 times a day, PRN, # 60 capsule, Refills 0, Tot. Refills 0, Maintenance, for constipation, 05/01/20 9:36:00 EDT, Route to Pharmacy Electronically, [facility] # [facility], 150, cm, 05/01/20 9:15:00 EDT, Height Start Date: 05/01/20 Stop Date: 05/31/20 Status: Orderedestradiol 0.1 mg/g vaginal cream See Instructions, 2 gm daily at bedtime for 2 weeks then reduce to 1gm daily at bedtime. then 1 gm 2times a week, # 42.5 Gm, 6 Refills, Maintenance, 09/12/19 16:11:00 EST, [facility] # 50, 150, cm, 09/12/19 11:05:00 EST, Height Start Date: 09/12/19 Status: Orderedfamotidine 20 mg oral tablet 20 mg, 1, tablet, By Mouth, 2 times a day, # 60 tablet, Refills 3, Tot. Refills 3, Maintenance, 05/01/20 9:36:00 EDT, Route to Pharmacy Electronically, [facility] # [facility], 150, cm, 05/01/20 9:15:00 EDT, Height Start Date: 05/01/20 Status: Orderedgabapentin 100 mg oral capsule 200 mg, 2, capsule, By Mouth, 3 times a day, # 180 capsule, Refills 1, Tot. Refills 1, Maintenance, 09/12/19 11:00:00 EST, Route to Pharmacy Electronically, [facility] # [facility], 150, cm, 09/12/19 10:43:00 EST, Height Start Date: 09/12/19 Status: Orderedhydrochlorothiazide-lisinopril 25 mg-20 mg oral tablet 1 tablet, By Mouth, Daily, # 90 tablet, 0 Refills, Maintenance, 04/18/20 23:44:00 EDT, [facility], 1 tablet By Mouth Daily, 150, cm, 09/12/19 11:05:00 EST, Height Start Date: 04/18/20 Status: OrderedtiZANidine 2 mg oral tablet See Instructions, PRN, take 1-2 tablets By Mouth Every 8 hours, # 30 tablet, Refills 0, Tot. Refills0, Maintenance, Pain , Moderate, 08/23/19 15:28:00 EST, Instructions Replace Required Details, [facility] Electron[facility], [facility] # [facility],... Start Date: 08/23/19 Status: Ordered Problem List Condition Effective Dates Status Health Status Informant Arthritis(Confirmed) Active Benign hypertension(Confirmed) Active Chronic lower back pain(Confirmed) Active Constipation(Confirmed) Active Gout(Confirmed) Active Hyperglycemia(Confirmed) Active Osteopenia(Confirmed) Active Paresthesia(Confirmed) Active Diagnosis Diagnosis Type Effective Dates Health Clinical Infor mant Status Service Posterior neck pain Discharge 05/01/20 Diagnosis Gastric reflux Discharge 05/01/20 Diagnosis Constipation Discharge 05/01/20 Diagnosis Carpal tunnel Discharge 05/01/20 syndrome Diagnosis Vital Signs Most recent to oldest [Reference Range]: 1 2 Height 150 cm 150 cm (05/01/20 9:47 AM) (05/01/20 9:15 AM) Weight 67.7 kg (05/01/20 9:15 AM) Oxygen Saturation [94-100 %] 98 % (05/01/20 9:15 AM) Pulse Rate [55-90 bpm] 65 bpm (05/01/20 9:15 AM) Body Mass Index [18.5-24.99] 30.09 *>HHI* (05/01/20 9:15 AM) Blood Pressure [90-138/55-84 mm Hg] 140/60 mm Hg 155/ 45 mm Hg *H* *H* (05/01/20 9:47 AM) (05/01/20 9:15 AM) Temperature [96.8-100.4 DegF] 97.7 DegF (05/01/20 9:15 AM) Blood pressure sites Arm, left (05/01/20 9:15 AM) Temperature Route Oral (05/01/20 9:15 AM) Weight Obtained Via Standing scale (05/01/20 9:15 AM) Social History Social History Type Response Smoking Status Never smoker entered on: 10/09/16 Sex
--- OUTSIDE RECORDS SUMMARY | 2022-08-26 11:16 | XMS_ITS | Continuity of Care Document ---
:1935 Author Organization [facility] Adult Address [address] [place] [address]- Care Team Providers Name Role Phone Raza BARAHONA, Natalia Gonzales Primary Care Physician Encounter [facility] [place] Date(s): 06/16/22 - 07/16/22 [facility] Adult [address] [place] [address]- Allergies, Adverse Reactions, Alerts No Known Allergies [...] 13-valent vaccine 10/09/16 Given 1Result Comment: [facility]-[id number] Note: declined Medications amlodipine-benazepril 5 mg-40 mg oral capsule 1 capsule, By Mouth, Daily, # 30 capsule, 0 Refills, Maintenance, 04/28/22 13:29:00 EDT, Capsule, [id number], Partial fill upon patient request if the [...] 01/08/22 10:45:00 EDT, [id number], cm, 01/08/22 10:44:00 EDT, Height Start Date: 01/08/22 Status: OrderedtiZANidine 2 mg oral tablet 4 mg, 2, tablet, By Mouth, 3 times a day, PRN, # 30 tablet, Refills 0, Tot. Refills 0, Maintenance, Pain , Severe, 06/02/22 14:44:00 EDT, Route to Pharmacy Electronically, [facility]/pharmacy #[id number], Partial fill upon patient request if the prescription is fo... Start Date: 06/02/22 Status: OrderedtiZANidine 2 mg oral tablet See Instructions, PRN, take 1-2 tablets By Mouth Every 8 hours, # 30 tablet, Refills 0, Tot. Refills0, Maintenance, Pain , Moderate, 08/23/19 15:28:00 EST, Instructions Replace Required Details, [facility] Electron[facility], [facility] # [facility],... Start Date: 08/23/19 Status: [...] Patient Care team information Care Team PersonnelName: Natalia Person NP [facility] Associate Professional Member Role: PCP Address: Address: [address] [place] [address]- Care Team Related PersonsName: ALLEN KILPATRICK Address: [place] [address]
--- OUTSIDE RECORDS SUMMARY | 2022-08-26 11:16 | XMS_ITS | Continuity of Care Document ---
:1935 Author Organization [facility] Adult Address [address] [place] [address]- Care Team Providers Name Role Phone Raza BARAHONA, Natalia Gonzales Primary Care Physician Encounter [facility] [place] Date(s): 05/01/20 - 05/31/20 [facility] Adult [address] [place] [address]- [facility] Attending Physician: Admtr, Jose8 Admitting Physician: Admtr, Ar8 Referring Physician: Admtr, Ar8 Allergies, Adverse Reactions, Alerts Substance Reaction Severity Status NKA Active Immunizations Given and Recorded Vaccine Date Status Refusal Reason influenza virus vaccine, inactivated 05/01/20 Given influenza virus vaccine, inactivated1 06/01/19 Given influenza virus vaccine, inactivated 05/25/18 Recorded Diphtheria/Tet/Pertussis, Acel (oldterm)2 03/05/17 Given pneumococcal 13-valent vaccine 10/09/16 Given 1Result Comment: [facility]-[id number] Note: declined Medications amLODIPine 10 mg oral tablet 10 mg, 1, tablet, By Mouth, Daily, # 90 tablet, Refills 1, Tot. Refills 1, Maintenance, 04/25/20 14:34:00 EDT, Route to Pharmacy Electronically, [facility] # [facility], 150, cm, 09/12/19 11:05:00 [...] 9:36:00 EDT, Route to Pharmacy Electronically, [facility] # [facility], 150, cm, 05/01/20 [...] 9:36:00 EDT, Route to Pharmacy Electronically, [facility] # [facility], 150, cm, 05/01/20 [...] Refills, Maintenance, 04/18/20 23:44:00 EDT, Tablet, [facility], 1 tablet By Mouth Daily, 150, cm, 09/12/19 11:05:00 EST, Height Start Date: 04/18/20 Status: OrderedtiZANidine 2 mg oral tablet See Instructions, PRN, take 1-2 tablets By Mouth Every 8 hours, # 30 tablet, Refills 0, Tot. Refills0, Maintenance, Pain , Moderate, 08/23/19 15:28:00 EST, Instructions Replace Required Details, [facility] Electronically, [facility] # [facility],... Start Date: 08/23/19 Status: Ordered Problem List Condition Effective Dates Status Health Status Informant Arthritis(Confirmed) Active Benign hypertension(Confirmed) Active Chronic lower back pain(Confirmed) Active Constipation(Confirmed) Active Gout(Confirmed) Active Hyperglycemia(Confirmed) Active Osteopenia(Confirmed) Active Paresthesia(Confirmed) Active Social History Social History Type Response Smoking Status Never smoker entered on: 10/09/16 Sex
--- OUTSIDE RECORDS SUMMARY | 2022-08-26 11:16 | XMS_ITS | Continuity of Care Document ---
:[address] [facility] Address [address] [place] [address]- Care Team Providers Name Role Phone Raza BARAHONA, Natalia Gonzales Primary Care Physician Encounter [facility] [place] Date(s): 12/06/21 - 12/13/21 [facility] [address] [place], [place] [address] Attending Physician: Not on Staff, Attending MD Referring Physician: Navneet Saleem MD Allergies, Adverse Reactions, Alerts No Known Allergies Immunizations Given and Recorded Vaccine Date Status Refusal Reason influenza virus vaccine, inactivated 05/01/20 Given influenza virus vaccine, inactivated1 06/01/19 Given influenza virus vaccine, inactivated 05/25/18 Recorded Diphtheria/Tet/Pertussis, Acel (oldterm)2 03/05/17 Given pneumococcal 13-valent vaccine 10/09/16 Given 1Result Comment: [facility]-[id number] Note: declined Medications amLODIPine 10 mg oral tablet See Instructions, TAKE ONE TABLET BY MOUTH ONCE DAILY, # 90 tablet, 0 Refills, 09/20/21 9:15:00 EST,[facility] #[id number], 150, cm, 09/19/21 15:50:00 EST, [...] 05/01/20 9:36:00 EDT, Route to Pharmacy Electronically, [facility], 150, cm, 05/01/20 9:15:00 EDT, Height Start Date: 05/01/20 Stop Date: 05/31/20 Status: Orderedestradiol 0.1 mg/g vaginal cream See Instructions, 2 gm daily at bedtime for 2 weeks then reduce to 1gm daily at bedtime. then 1 gm 2times a week, # 42.5 Gm, 6 Refills, Maintenance, 09/12/19 16:11:00 EST, [facility] # [facility], 150, cm, 09/12/19 11:05:00 EST, Height Start Date: 09/12/19 Status: Orderedfamotidine 20 mg oral tablet 20 mg, 1, tablet, By Mouth, 2 times a day, # 60 tablet, Refills 3, Tot. Refills 3, Maintenance, 05/01/20 9:36:00 EDT, Route to Pharmacy Electronically, [facility] # [facility], 150, cm, 05/01/20 9:15:00 EDT, Height Start Date: 05/01/20 Status: Orderedgabapentin 100 mg oral capsule 200 mg, 2, capsule, By Mouth, 3 times a day, # 180 capsule, Refills 1, Tot. Refills 1, Maintenance, 12/20/20 11:24:00 EDT, Route to Pharmacy Electronically, [facility] # [facility], 150, cm, 12/18/20 15:01:00 EDT, Height Start Date: 12/20/20 Status: Orderedhydrochlorothiazide-lisinopril 25 mg-20 mg oral tablet 1 tablet, By Mouth, Daily, # 90 tablet, 1 Refills, Maintenance, 07/19/20 13:21:00 EST, [facility], [facility], 1 tablet By Mouth Daily, [...] Instructions Replace Required Details, [facility] Electronically, [facility] # [facility],... Start Date: 08/23/19 Status: Ordered Problem List Condition Effective Dates Status Health Status Informant Arthritis(Confirmed) Active Benign hypertension(Confirmed) Active Chronic lower back pain(Confirmed) Active Constipation(Confirmed) Active Gout(Confirmed) Active Hyperglycemia(Confirmed) Active Obese class I(Confirmed) Active Osteopenia(Confirmed) Active Paresthesia(Confirmed) Active Social History Social History Type Response Smoking Status Never smoker entered on: 10/09/16 Sex
--- OUTSIDE RECORDS SUMMARY | 2022-08-26 11:16 | XMS_ITS | Continuity of Care Document ---
:1935 Author Organization [facility] Adult Address [address] [place] [address]- Care Team Providers Name Role Phone Raza BARAHONA, Natalia Gonzales Primary Care Physician Encounter [facility] Date(s): 02/12/22 - 06/12/22 [facility] Adult [address] [place] [address]- Attending Physician: Natalia Person NP Referring Physician: Harper BANEGAS, Navneet Corley Allergies, Adverse [...] pneumococcal 13-valent vaccine 10/09/16 Given 1Result Comment: [facility]-[id number] Note: declined Medications amlodipine-benazepril 5 mg-40 mg oral capsule 1 capsule, By Mouth, Daily, # 30 capsule, 0 Refills, Maintenance, 04/28/22 13:29:00 EDT, [facility]apsule, [id number], Partial fill upon patient request if the [...] to Pharmacy Electronically, [facility], 150, cm, 05/01/20 9:15:00 EDT, Height Start Date: 05/01/20 Stop Date: 05/31/20 Status: Orderedestradiol 0.1 mg/g vaginal cream See Instructions, 2 gm daily at bedtime for 2 weeks then reduce to 1gm daily at bedtime. then 1 gm 2times a week, # 42.5 Gm, 6 Refills, Maintenance, 09/12/19 16:11:00 EST, [facility] # [facility], 150, cm, 09/12/19 11:05:00 EST, Height Start Date: 09/12/19 Status: Orderedfamotidine 20 mg oral tablet 20 mg, 1, tablet, By Mouth, 2 times a day, # 60 tablet, Refills 3, Tot. Refills 3, Maintenance, 05/01/20 9:36:00 EDT, Route to Pharmacy Electronically, [facility] # [facility], 150, cm, 05/01/20 9:15:00 EDT, Height Start Date: 05/01/20 Status: Orderedgabapentin 100 mg oral capsule 200 mg, 2, capsule, By Mouth, 3 times a day, # 180 capsule, Refills 1, Tot. Refills 1, Maintenance, 01/08/22 10:45:00 EDT, [id number], cm, 01/08/22 10:44:00 EDT, Height Start Date: 01/08/22 Status: OrderedtiZANidine 2 mg oral tablet 4 mg, 2, tablet, By Mouth, 3 times a day, PRN, # 30 tablet, Refills 0, Tot. Refills 0, Maintenance, Pain , Severe, 06/02/22 14:44:00 EDT, Route to Pharmacy Electronically, [facility] #[id number], Partial fill upon patient request if the prescription is fo... Start Date: 06/02/22 Status: OrderedtiZANidine 2 mg oral tablet See Instructions, PRN, take 1-2 tablets By Mouth Every 8 hours, # 30 tablet, Refills 0, Tot. Refills0, Maintenance, Pain , Moderate, 08/23/19 15:28:00 EST, Instructions Replace Required Details, [facility] Electronically, [facility] # [facility],... Start Date: 08/23/19 Status: [...] Team PersonnelName: Raza BARAHONA, Natalia Gonzales Position: [facility] Associate Professional Member Role: PCP Address: Address: [address] [place] [id number]- [place] Care Team Related PersonsName: ALLEN KILPATRICK Address: [place] [address]
--- OUTSIDE RECORDS SUMMARY | 2022-08-26 11:16 | XMS_ITS | Continuity of Care Document ---
:[address] [facility] Adult Address [address] [place] [address]- Care Team Providers Name Role Phone Raza BARAHONA, Natalia Gonzales Primary Care Physician Encounter [facility] [place] Date(s): 09/13/21 - 10/13/21 [facility] [address] [place] [address]- Attending Physician: Raza BARAHONA, Natalia Gonzales Referring Physician: Navneet Saleem MD Allergies, Adverse Reactions, Alerts No Known Allergies Immunizations Given and Recorded Vaccine Date Status Refusal Reason influenza virus vaccine, inactivated 05/01/20 Given influenza virus vaccine, inactivated1 06/01/19 Given influenza virus vaccine, inactivated 05/25/18 Recorded Diphtheria/Tet/Pertussis, Acel (oldterm)2 03/05/17 Given pneumococcal 13-valent vaccine 10/09/16 Given 1Result Comment: [facility]-[id number] Note: declined Medications amLODIPine 10 mg oral tablet See Instructions, TAKE ONE TABLET BY MOUTH ONCE DAILY, # 90 tablet, 0 Refills, 09/20/21 9:15:00 EST,[facility]/pharmacy #[id number], 150, cm, 09/19/21 15:50:00 EST, Height [...] 12/20/20 11:24:00 EDT, Route to Pharmacy Electronically, [facility] # [facility], 150, cm, 12/18/20 15:01:00 [...]
--- OUTSIDE RECORDS SUMMARY | 2022-08-26 11:16 | XMS_ITS | Continuity of Care Document ---
:1935 Author Organization [facility] Adult Address [address] [place] [address]- Care Team Providers Name Role Phone Raza BARAHONA, Natalia Gonzales Primary Care Physician Encounter [facility] [place] Date(s): 12/06/21 - 01/05/22 [facility] Adult [address] [place] [address]- Allergies, Adverse Reactions, Alerts No Known Allergies Immunizations Given and Recorded Vaccine Date Status Refusal Reason influenza virus vaccine, inactivated 05/01/20 Given influenza virus vaccine, inactivated1 06/01/19 Given influenza virus vaccine, inactivated 05/25/18 Recorded Diphtheria/Tet/Pertussis, Acel (oldterm)2 03/05/17 Given pneumococcal 13-valent vaccine 10/09/16 Given 1Result Comment: [facility]-[id number] Note: declined Medications amLODIPine 10 mg oral tablet 1 tablet, By Mouth, Daily, # 90 tablet, 0 Refills, Maintenance, 12/31/21 15:31:00 EDT, [facility]/pharmacy #[id number], 150, cm, 09/19/21 15:50:00 [...] EDT, Route to Pharmacy Electronically, [facility] # [facility], 150, cm, 05/01/20 9:15:00 EDT, Height Start Date: 05/01/20 Stop Date: 05/31/20 Status: Orderedestradiol 0.1 mg/g vaginal cream See Instructions, 2 gm daily at bedtime for 2 weeks then reduce to 1gm daily at bedtime. then 1 gm 2times a week, # 42.5 Gm, 6 Refills, Maintenance, 09/12/19 16:11:00 EST, [facility] # [facility], 150, cm, 09/12/19 11:05:00 EST, Height Start Date: 09/12/19 Status: Orderedfamotidine 20 mg oral tablet 20 mg, 1, tablet, By Mouth, 2 times a day, # 60 tablet, Refills 3, Tot. Refills 3, Maintenance, 05/01/20 9:36:00 EDT, Route to Pharmacy Electronically, [facility] # [facility], 150, cm, 05/01/20 9:15:00 EDT, Height Start Date: 05/01/20 Status: Orderedgabapentin 100 mg oral capsule 200 mg, 2, capsule, By Mouth, 3 times a day, # 180 capsule, Refills 1, Tot. Refills 1, Maintenance, 12/20/20 11:24:00 EDT, Route to Pharmacy Electronically, [facility] # [facility], 150, cm, 12/18/20 15:01:00 EDT, Height Start Date: 12/20/20 Status: Orderedhydrochlorothiazide-lisinopril 25 mg-20 mg oral tablet 1 tablet, By Mouth, Daily, # 90 tablet, 1 Refills, Maintenance, 07/19/20 13:21:00 EST, Tablet, [facility] # 50, 1 tablet By Mouth Daily, 150, cm, 05/01/20 9:47:00 EDT, Height Start Date: 07/19/20 Status: OrderedPaxlovid Rx Paxlovid Rx, See Instructions, # 30 tablet, Refills 0, Tot. Refills 0, Maintenance, 300mg nirmatrelvir (two 150mg tablets) with 100mg ritonavir (one tablet). All 3 tablets taken together twice daily for 5 days, with or without food., 12/06/21 10:53:00... Start Date: 5/6/22 Status: OrderedtiZANidine 2 mg oral tablet See Instructions, PRN, take 1-2 tablets By Mouth Every 8 hours, # 30 tablet, Refills 0, Tot. Refills0, Maintenance, Pain , Moderate, 08/23/19 15:28:00 EST, Instructions Replace Required Details, [facility] Electron[facility], [facility] # [facility],... Start Date: 08/23/19 Status: Ordered Problem List Condition Effective Dates Status Health Status Informant Arthritis(Confirmed) Active Benign hypertension(Confirmed) Active Chronic lower back pain(Confirmed) Active Constipation(Confirmed) Active Gout(Confirmed) Active Hyperglycemia(Confirmed) Active Obese class I(Confirmed) Active Osteopenia(Confirmed) Active Paresthesia(Confirmed) Active Social History Social History Type Response Smoking Status Never smoker entered on: 10/09/16 Sex
--- OUTSIDE RECORDS SUMMARY | 2022-08-26 11:16 | XMS_ITS | Continuity of Care Document ---
:[address] [facility] Adult Address [address] [place] [address]- Care Team Providers Name Role Phone Raza BARAHONA, Natalia Gonzales Primary Care Physician Encounter [facility] Date(s): 08/23/19 - 08/30/19 [facility] Adult [address] [place] [address]- [facility] Encounter Diagnosis Well adult exam (Discharge Diagnosis) - 08/23/19 Benign hypertension (Discharge Diagnosis) - 08/23/19 Posterior neck pain (Discharge Diagnosis) - 08/23/19 Attending Physician: Raza BARAHONA, Natalia Gonzales Referring Physician: Harper BANEGAS, Navneet Corley Allergies, Adverse Reactions, Alerts Substance Reaction Severity Status NKA Active Immunizations Given and Recorded Vaccine Date Status Refusal Reason influenza virus vaccine, inactivated1 06/01/19 Given influenza virus vaccine, inactivated 05/25/18 Recorded Diphtheria/Tet/Pertussis, Acel (oldterm)2 03/05/17 Given pneumococcal 13-valent vaccine 10/09/16 Given 1Result Comment: [facility]-[id number] Note: declined Medications amLODIPine 10 mg oral tablet 10 mg, 1, tablet, By Mouth, Daily, # 90 tablet, Refills 1, Tot. Refills 1, Maintenance, 04/25/19 11:26:15 EDT, Route to Pharmacy Electronically, [id number], [facility] Start Date: 04/25/19 Status: Orderedaspirin 81 mg oral delayed release tablet 81 mg, 1, tablet, By Mouth, Daily, # 30 tablet, Refills 0, Maintenance, 12/24/16 9:31:57 Start Date: 12/24/16 Status: Orderedgabapentin 100 mg oral capsule 100 mg, 1, capsule, By Mouth, 3 times a day, # 90 capsule, Refills 0, Maintenance, 03/05/17 13:37:05 Start Date: 03/05/17 Status: Orderedgabapentin 100 mg oral capsule 200 mg, 2, capsule, By Mouth, 3 times a day, # 180 capsule, Refills 1, Tot. Refills 1, Maintenance, 11/17/18 7:51:22 EDT, Route to Pharmacy Electronically, [id number], [facility] # [facility] Start Date: 11/17/18 Status: Orderedhydrochlorothiazide-lisinopril 25 mg-20 mg oral tablet [...] Instructions Replace Required Details, [facility] Electronically, [facility] # 50,... Start Date: 08/23/19 Status: Ordered Problem List Condition Effective Dates Status Health Status Informant Arthritis(Confirmed) Active Benign hypertension(Confirmed) Active Chronic lower back pain(Confirmed) Active Constipation(Confirmed) Active Gout(Confirmed) Active Hyperglycemia(Confirmed) Active Osteopenia(Confirmed) Active Paresthesia(Confirmed) Active Diagnosis Diagnosis Type Effective Dates Health Clinical Infor mant Status Service Well adult exam Discharge 08/23/19 Diagnosis Benign hypertension Discharge 08/23/19 Diagnosis Posterior neck pain Discharge 08/23/19 Diagnosis Vital Signs Most recent to oldest [Reference Range]: 1 2 Height 150 cm 150 cm (08/23/19 3:05 PM) (08/23/19 2:45 PM) Weight 67.5 kg (08/23/19 2:45 PM) Oxygen Saturation [94-100 %] 99 % (08/23/19 2:45 PM) Pulse Rate [55-90 bpm] 79 bpm (08/23/19 2:45 PM) Body Mass Index [18.5-24.99] 30 *>HHI* (08/23/19 2:45 PM) Blood Pressure [90-138/55-84 mm Hg] 130/60 mm Hg 146/ 47 mm Hg (08/23/19 3:05 PM) *H* (08/23/19 2:45 PM) Temperature [96.8-100.4 DegF] 98.0 DegF (08/23/19 2:45 PM) Blood pressure sites Arm, left (08/23/19 2:45 PM) Temperature Route Oral (08/23/19 2:45 PM) Weight Obtained Via Standing scale (08/23/19 2:45 PM) Social History Social History Type Response Smoking Status Never smoker entered on: 10/09/16 Sex
--- NOTE | 2022-08-26 11:17 | ECG_ITS ---
Test Reason : SOB Blood Pressure : / mmHG Vent. Rate : 062 BPM Atrial Rate : 062 BPM P-R Int : 148 ms QRS Dur : 082 ms QT Int : 404 ms P-R-T Axes : -20 009 125 degrees QTc Int : 410 ms Normal sinus rhythm Low voltage QRS Cannot rule out Inferior infarct , age undetermined Abnormal ECG When compared with ECG of 18-DEC-2016 13:08, change in voltage Referred By: Karen Ahumada Electronically Signed By:BAKARI PENN
--- NOTE | 2022-08-26 11:25 | ED_ITS ---
HPI - SOB/Dyspnea General Chief Complaint: Dyspnea Stated Complaint: CP,DIFF BREATHING FROM MD OFFICE PER EMS Time Seen by Provider: 08/26/22 11:05 Source: patient Mode of arrival: EMS Limitations: no limitations History of Present Illness HPI Narrative: Patient is an 86-year-old female who presents to the emergency department via EMS from her doctor's office. She states she was not seen by the doctor today. She has been experiencing cough, body aches, chest pain, shortness of breath, and headache. She has become ill over the past 3 days after her was ill with similar symptoms. Based on her presentation at the office she was referred to the emergency department. She has has been taking [id number] cough/cold medications without any improvement in her symptoms. Chest pain is described as diffuse to the left anterior chest, made worse with movement, cough, deep inspiration. Denies weakness, nausea, vomiting, abdominal pain, dysuria, urinary frequency. Denies orthopnea, pedal edema. Related Data Previous Rx's Medication Instructions Recorded azithromycin 250 mg tablet See Rx Instructions PO .COMPLEX #6 08/26/22 tabs prednisone 20 mg tablet 40 mg PO DAILY 4 days #8 tabs 08/26/22 Allergies Allergy/AdvReac Type Severity Reaction Status Date / Time No Known Allergies Allergy Unverified 04/19/20 15:59 [No Known Allergies*] Review of Systems Review of Systems: Constitutional: No fever. No chills. No weakness. Positive fatigue. ENT/ Mouth: No Ear Pain, positive Nasal Congestion, positive sore throat, No Rhinorrhea, No Swallowing Difficulty Skin: No rash or itching. Cardiovascular: Positive chest pain. No palpitations. Respiratory: Positive shortness of breath. Positive cough. Positive sputum production. Gastrointestinal: No nausea. No vomiting. No diarrhea. No abdominal pain. Genitourinary: No burning micturition. No urinary frequency. Neurologic: Positive headache. No dizziness. No syncope. No numbness or tingling in the extremities. Musculoskeletal: No back pain. No joint pain or stiffness. Positive myalgias. Yes all other systems are reviewed and are negative [facility] Past Medical History Attestation statement: The following information was validated with the patient. Source: old records reviewed Medical History (Updated 08/26/22 @ 15:46 by Karen Ahumada CNP) HTN (hypertension) Social History Social History Smoked in Last 30 Days: No Use of substances other than those prescribed or required for medical reasons: No Advance Directives: No Advance Directives Information Provided: Yes Physical Exam Vital Signs: Vital Signs: Last Vital Signs Temp 98.0 F 08/26/22 16:12 Pulse 107 H 08/26/22 16:12 Resp 22 H 08/26/22 16:12 BP 128/50 L 08/26/22 16:12 Pulse Ox 98 08/26/22 16:12 O2 Del Method 08/26/22 16:12 BMI result Body Mass Index 28.3 Appearance: Alert.?Oriented to person, place and time. No acute distress.?Normal affect. Eyes: Pupils equal, round and reactive to light.? ENT: TM normal bilaterally. Pharynx normal.?? Neck: Normal inspection.? Neck supple.??No cervical adenopathy CVS: Heart sounds normal. Normal heart rate and rhythm.? Pulses normal.?? Respiratory: No respiratory distress.? Lung sounds with faint expiratory wheezing, diminished at the bases Abdomen: Soft and non-tender. Normoactive bowel sounds. Skin: Skin warm and dry.? Normal skin color.? ? Extremities: No lower extremity edema.? Neuro: Moves all extremities spontaneously. Sensation intact bilaterally. No motor deficits. Ambulates with normal steady gait. Course Reevaluation(s) Reevaluation #1: CBC is overall unremarkable, no leukocytosis, no anemia. CMP is overall unremarkable. Troponin <3.5, EKG revealing normal sinus rhythm, no acute ischemic abnormalities. BMP within normal limits, do not suspect acute CHF. Patient at this time mildly tachycardic 110, with room air saturation 94%, suspect tachycardia secondary to albuterol, however will add on D-dimer to exclude pulmonary embolism. She remains hypertensive 180 systolic, states that 3 weeks ago she stopped taking her amlodipine as her blood pressure was normal. Time: 13:47 Reevaluation #2: D-dimer 365; age adjusted with cut off of 425, pulmonary embolism unlikely. Room air saturation noted to be 91-94% at rest, ambulatory O2 trial without significant increased work of breathing, tachypnea, or hypoxia. Blood pressure has improved 142/59, advised to continue taking her amlodipine as previously prescribed by her doctor. Patient with improvement in symptoms after receiving albuterol nebulizer and prednisone today. Discussed plan of care for discharge home, will send prescription for azithromycin, albuterol inhaler, prednisone to pharmacy for bronchitis. Reviewed worrisome signs and symptoms that would warrant re-evaluation in the emergency department. Patient advised to follow-up with primary care provider. All questions answered. Time: 15:33 Medications Administered Discontinued Medications Generic Name Dose Route Start Last Admin Trade Name Marybeth PRN Reason Stop Dose Admin Albuterol Sulfate 5 mg/ 7.5 mg 08/26/22 11:49 08/26/22 12:32 Albuterol Sulfate 2.5 mg INHALE 08/26/22 11:50 7.5 mg ONCE ONE Administration Albuterol Sulfate 1 puff 08/26/22 15:40 08/26/22 16:02 Albuterol Sulfate 90 Mcg 8 Gm Inhaler INHALE 08/26/22 15:41 1 puff ONCE ONE Administration Prednisone 40 mg 08/26/22 11:49 08/26/22 12:14 Prednisone 20 Mg Tablet PO 08/26/22 11:50 40 mg ONCE ONE Administration Medical Decision Making Medical Decision Making [facility] Narrative: Patient is an 86-year-old female with a past medical history of hypertension presenting to emergency department for evaluation of upper respiratory symptoms with chest pain and shortness of breath. At the time of examination she appears uncomfortable, no significant increased work of breathing. Mildly tachypneic upon exertion, however afebrile without tachycardia or hypoxia. Chest pain is reproducible to palpation deep inspiration, most consistent with pleuritic-type chest pain. Abdominal examination is benign. Will obtain CBC to evaluate for leukocytosis/ anemia, CMP and lipase to evaluate for abnormal electrolytes /abnormal renal function/ abnormal hepatic/biliary function, EKG and troponin to evaluate for ischemia/ACS. Chest x-ray to evaluate for consolidation/ infiltrate/ mass/ pulmonary congestion and Urinalysis, and viral testing. Patient received albuterol nebulizer and oral prednisone at this time. Disposition pending results. Differential Diagnosis Differential Diagnoses: The differential diagnosis associated with the presentation includes (ACS, pulmonary embolism, pneumonia, viral upper respiratory infection, CHF, pleural effusion) Lab Data [facility] Lab Attestation statement: I reviewed the patient's lab results. 08/26/22 11:39 08/26/22 11:39 Labs: Lab Results 08/26/22 08/26/22 08/26/22 Range/Units 11:39 11:39 11:39 WBC 9.9 (4.8-10.8) X10*3/uL RBC 4.51 (4.20-5.50) X10*6/uL Hgb 13.3 (12.0-16.0) g/dl Hct 39.8 (37.0-47.0) % MCV 88.2 (80.0-98.0) fL MCH 29.5 (27.0-33.0) pg MCHC 33.4 (31.0-35.0) g/dl RDW 13.2 (11.0-16.0) % Plt Count 215 (160-400) X10*3/uL MPV 11.5 (9.4-12.3) fL Immature Gran % (Auto) 0.3 (0.0-0.4) % Neut % (Auto) 47.5 (45-73) % Lymph % (Auto) 45.2 H (20-40) % [place] % (Auto) 5.1 (2-11) % Eos % (Auto) 1.6 (0-4) % Baso % (Auto) 0.3 (0-2) % Lymph # (Auto) 4.5 (1.2-4.9) X10*3/uL [place] # (Auto) 0.5 (0.1-1.2) X10*3/uL Eos # (Auto) 0.2 (0.0-0.4) X10*3/uL Baso # (Auto) 0.0 (0.0-0.2) X10*3/uL Abs Immat Gran (auto) 0.03 (0.00-0.03) X10*3/uL Absolute Neuts (auto) 4.7 (2.0-8.3) x10*3/uL Absolute Nucleated RBC 0.000 (0.0-0.012) X10*3/uL Nucleated RBC % (auto) 0.0 (0.0-0.2) /100WBC D-Dimer High Sensitivty NG/ML Sodium 142 (135-145) mmol/L Potassium 3.8 (3.3-5.1) mmol/L Chloride 107 (96-108) mmol/L Carbon Dioxide 25 (22-29) mmol/L Anion Gap 14 (12-20) BUN 17 H (9-16) mg/dL Creatinine 0.69 (0.5-1.4) mg/dL Estim Creat Clear Calc 50.4 Estimated GFR > 60 Random Glucose 118 H (60-115) mg/dL Calcium 9.1 (8.4-10.2) mg/dL Magnesium 1.5 L (1.6-2.6) mg/dL Total Bilirubin 0.2 (0.0-1.0) mg/dL AST 16 (5-31) U/L ALT 16 (0-31) U/L Alkaline Phosphatase 70 (39-117) U/L Troponin I High Sens (<3.5-17.0) ng/L B-Natriuretic Peptide (<100) pg/mL Total Protein 6.7 (6.5-8.0) g/dL Albumin 3.8 (3.5-5.0) g/dL COVID-19 (DAVE) Negative (Negative) COVID-19 Clin Com See Note Influenza Type A (BENITO) (Negative) Influenza Type B (BENITO) (Negative) Influenza A & B Note 08/26/22 08/26/22 08/26/22 Range/Units 11:39 11:39 11:39 WBC (4.8-10.8) X10*3/uL RBC (4.20-5.50) X10*6/uL Hgb (12.0-16.0) g/dl Hct (37.0-47.0) % MCV (80.0-98.0) fL MCH (27.0-33.0) pg MCHC (31.0-35.0) g/dl RDW (11.0-16.0) % Plt Count (160-400) X10*3/uL MPV (9.4-12.3) fL Immature Gran % (Auto) (0.0-0.4) % Neut % (Auto) (45-73) % Lymph % (Auto) (20-40) % [place] % (Auto) (2-11) % Eos % (Auto) (0-4) % Baso % (Auto) (0-2) % Lymph # (Auto) (1.2-4.9) X10*3/uL [place] # (Auto) (0.1-1.2) X10*3/uL Eos # (Auto) (0.0-0.4) X10*3/uL Baso # (Auto) (0.0-0.2) X10*3/uL Abs Immat Gran (auto) (0.00-0.03) X10*3/uL Absolute Neuts (auto) (2.0-8.3) x10*3/uL Absolute Nucleated RBC (0.0-0.012) X10*3/uL Nucleated RBC % (auto) (0.0-0.2) /100WBC D-Dimer High Sensitivty NG/ML Sodium (135-145) mmol/L Potassium (3.3-5.1) mmol/L Chloride (96-108) mmol/L Carbon Dioxide (22-29) mmol/L Anion Gap (12-20) BUN (9-16) mg/dL Creatinine (0.5-1.4) mg/dL Estim Creat Clear Calc Estimated GFR Random Glucose (60-115) mg/dL Calcium (8.4-10.2) mg/dL Magnesium (1.6-2.6) mg/dL Total Bilirubin (0.0-1.0) mg/dL AST (5-31) U/L ALT (0-31) U/L Alkaline Phosphatase (39-117) U/L Troponin I High Sens < 3.5 (<3.5-17.0) ng/L B-Natriuretic Peptide 50 (<100) pg/mL Total Protein (6.5-8.0) g/dL Albumin (3.5-5.0) g/dL COVID-19 (DAVE) (Negative) COVID-19 Clin Com Influenza Type A (BENITO) Negative (Negative) Influenza Type B (BENITO) Negative (Negative) Influenza A & B Note See Note 08/26/22 Range/Units 14:32 WBC (4.8-10.8) X10*3/uL RBC (4.20-5.50) X10*6/uL Hgb (12.0-16.0) g/dl Hct (37.0-47.0) % MCV (80.0-98.0) fL MCH (27.0-33.0) pg MCHC (31.0-35.0) g/dl RDW (11.0-16.0) % Plt Count (160-400) X10*3/uL MPV (9.4-12.3) fL Immature Gran % (Auto) (0.0-0.4) % Neut % (Auto) (45-73) % Lymph % (Auto) (20-40) % [place] % (Auto) (2-11) % Eos % (Auto) (0-4) % Baso % (Auto) (0-2) % Lymph # (Auto) (1.2-4.9) X10*3/uL [place] # (Auto) (0.1-1.2) X10*3/uL Eos # (Auto) (0.0-0.4) X10*3/uL Baso # (Auto) (0.0-0.2) X10*3/uL Abs Immat Gran (auto) (0.00-0.03) X10*3/uL Absolute Neuts (auto) (2.0-8.3) x10*3/uL Absolute Nucleated RBC (0.0-0.012) X10*3/uL Nucleated RBC % (auto) (0.0-0.2) /100WBC D-Dimer High Sensitivty 365 NG/ML Sodium (135-145) mmol/L Potassium (3.3-5.1) mmol/L Chloride (96-108) mmol/L Carbon Dioxide (22-29) mmol/L Anion Gap (12-20) BUN (9-16) mg/dL Creatinine (0.5-1.4) mg/dL Estim Creat Clear Calc Estimated GFR Random Glucose (60-115) mg/dL Calcium (8.4-10.2) mg/dL Magnesium (1.6-2.6) mg/dL Total Bilirubin (0.0-1.0) mg/dL AST (5-31) U/L ALT (0-31) U/L Alkaline Phosphatase (39-117) U/L Troponin I High Sens (<3.5-17.0) ng/L B-Natriuretic Peptide (<100) pg/mL Total Protein (6.5-8.0) g/dL Albumin (3.5-5.0) g/dL COVID-19 (DAVE) (Negative) COVID-19 Clin Com Influenza Type A (BENITO) (Negative) Influenza Type B (BENITO) (Negative) Influenza A & B Note Independent Interpretation I performed an independent interpretation of an: EKG and Plain X-Ray (I have personally interpreted chest x-ray and agree with radiologist opinion.) Interpretation: EKG: Rate: 62 Rhythm:? Normal sinus rhythm [place]:? Normal Normal P waves.? Normal [place].?? Normal QRS complex.?? ST T wave :??No ST elevation, no ST depression qTC: 410 prior studies:? December 2016 The study has been interpreted contemporaneously by me. Radiology Impression Discussion of test interpretation with radiology: I have reviewed the radiologist's reading. Radiologist Impression: XR/XR chest 2V IMPRESSION: No acute cardiopulmonary process. Prescription Management I considered prescription management with: Antibiotic and Other (Corticosteroid) Discharge Plan Discharge Clinical Impression: Bronchitis Patient Disposition: Home, Self-Care Instructions: How to Use a Metered-Dose Inhaler (ED), Acute Bronchitis (ED) Additional Instructions: Prescription for prednisone and azithromycin were sent to your pharmacy, please take these as instructed. Today, You have also been provided with an albuterol inhaler to use 1-2 puffs every 4-6 hours as needed for shortness of breath, wheezing, cough, and you were instructed on appropriate usage. Continue taking your blood pressure medication as advised by her primary care doctor, even when your blood pressure is well controlled while currently taking it. Follow-up with your primary care provider. Return to the emergency department any new or worsening symptoms or concerns. Prescriptions: New prednisone 20 mg tablet 40 mg PO DAILY 4 Days Qty: 8 0RF azithromycin 250 mg tablet See Rx Instructions .ROUTE .COMPLEX Qty: 6 0RF Rx Instructions: For 250 mg dose pack: take 500 mg today (day 1), then 250 mg for 4 days (days 2-5) Referrals: Physician,Unknown J [Primary Care Provider] - Interventions: ED Discharge Assessment Last Done: 08/26/22 16:15 Discharge Date/Time: 08/26/22 16:16
[2022-08-26 11:46] LABS: MANUAL DIFF FLAG NO
[2022-08-26 11:48] LABS: Basophils Percent Auto 0.3 % (0-2); Eosinophils Absolute Auto 0.2 X10*3/uL (0.0-0.4); Eosinophils Percent Auto 1.6 % (0-4); Hematocrit 39.8 % (37.0-47.0); Hemoglobin 13.3 g/dl (12.0-16.0); Imm Gran Abs Auto 0.03 X10*3/uL (0.00-0.03); Imm Gran Pct Auto 0.3 % (0.0-0.4); Lymphocytes Absolute Auto 4.5 X10*3/uL (1.2-4.9); Lymphocytes Percent Auto 45.2 % (20-40); Mean Corpuscular HGB Conc 33.4 g/dl (31.0-35.0); Mean Corpuscular Hemoglobin 29.5 pg (27.0-33.0); Mean Corpuscular Volume 88.2 fL (80.0-98.0); Mean Platelet Volume 11.5 fL (9.4-12.3); Monocytes Absolute Auto 0.5 X10*3/uL (0.1-1.2); Monocytes Percent Auto 5.1 % (2-11); Neutrophils Absolute Auto 4.7 x10*3/uL (2.0-8.3); Neutrophils Percent Auto 47.5 % (45-73); Platelet Count 215 X10*3/uL (160-400); Red Blood Count 4.51 X10*6/uL (4.20-5.50); Red Cell Distribution Width 13.2 % (11.0-16.0); White Blood Count 9.9 X10*3/uL (4.8-10.8)
[2022-08-26 12:08] LABS: Alanine Aminotransferase 16 U/L (0-31); Albumin Level 3.8 g/dL (3.5-5.0); Alkaline Phosphatase 70 U/L (39-117); Anion Gap 14 (12-20); Aspartate Amino Transferase 16 U/L (5-31); Bilirubin Total 0.2 mg/dL (0.0-1.0); Blood Urea Nitrogen 17 mg/dL (9-16); Calcium 9.1 mg/dL (8.4-10.2); Carbon Dioxide 25 mmol/L (22-29); Chloride 107 mmol/L (96-108); Creatinine Clr Calc Pharmacy 50.4; Estimated Glomerular Filt Rate > 60; Glucose Random 118 mg/dL (60-115); Magnesium 1.5 mg/dL (1.6-2.6); Potassium 3.8 mmol/L (3.3-5.1); Sodium 142 mmol/L (135-145); Total Protein 6.7 g/dL (6.5-8.0)
[2022-08-26 12:12] LABS: B Type Natriuretic Peptide 50 pg/mL (<100); COVID-19 Test Negative (Negative); IDNOW Serial# 16C4AD1C; IDNOW Serial# BCCEAD1C; Influenza A Negative (Negative); Influenza B2 Negative (Negative)
[2022-08-26] MEDS: predniSONE 20 MG TABLET 40 MG PO (12:14)
[2022-08-26 12:19] LABS: Troponin-I High Sensitivity < 3.5 ng/L (<3.5-17.0)
[2022-08-26] MEDS: Albuterol Sulfate 5 MG, Albuterol Sulfate (0.083%) 2.5 MG 7.5 MG INHALE (12:32)
[2022-08-26 15:00] LABS: D Dimer High Sensitivity 365 NG/ML
--- NOTE | 2022-08-26 15:35 | PC.NURSE ---
sharon granda . ruben . breathing even and unlabored . wheezes noted throughout . dry , productive cough as reported by patient . patient taken on ambulation trail O2 saturation maintained at 94-95% on room air . provider notified . patient aware of plan of care .
[2022-08-26] MEDS: Albuterol Sulfate 90 MCG 8 GM INHALER 1 PUFF INHALE (16:02)
--- NOTE | 2022-08-26 16:14 | PC.NURSE ---
patient a/ox4 . went over discharge instructions as ordered by provider . RT at bedside to administer and do inhaler teaching . patient to follow up with primary care . patient to return to Ed if symptoms worsen . no questions at this time .
== END 2022-08-26 16:16 | disposition home or self-care (01) ==
PROVIDERS: Nurse Practitioner Family; Emergency Provider Emergency Medicine
DX: J40 Bronchitis, not specified as acute or chronic (principal); R07.89 Other chest pain; R06.02 Shortness of breath; Z20.822 Contact with and (suspected) exposure to COVID-19; Z20.828 Contact with and (suspected) exposure to other viral communicable diseases; Z79.899 Other long term (current) drug therapy
CPT/HCPCS: 36415; 71046; 80053; 83735; 83880; 84484; 85025; 85379; 87502; 87635; 93005; 94640; 99284; 99285

== ENCOUNTER 2023-07-08 13:04 | Outpatient (REF) | payer MEDICARE, SELFPAY ==
--- NOTE | ~2023-07-08 | CT_ITS ---
EXAMINATION: CT ABDOMEN AND PELVIS WITH CONTRAST CLINICAL INFORMATION: Pain, diverticulitis. COMPARISON: CT abdomen/pelvis 07/10/2010. TECHNIQUE: Multidetector volumetric images were obtained from the superior aspect of the liver through the pubic symphysis following administration 85 mL of Omnipaque 350 intravenous contrast. Sagittal and coronal reformatted images were obtained on the technologist's workstation. Oral contrast: No This CT examination was performed using dose optimization techniques as appropriate, variously including the following: *Automated exposure control *Adjustment of mA and/or kV according to patient size (this includes techniques or standardized protocols for targeted exams where dose is matched to indication/reason for exam; i.e. extremities or head) *Use of iterative reconstruction technique DLP: 458 mGy-cm FINDINGS: LUNG BASES: No focal consolidation or pleural effusion. Minimal peripheral reticulation. Partially imaged coronary artery calcifications. LIVER, GALLBLADDER, AND BILIARY TREE: The liver is normal in size, shape, and attenuation. No focal hepatic lesion or biliary ductal dilatation is present. The gallbladder is unremarkable with no evidence of radiopaque gallstones, gallbladder wall thickening, or obvious pericholecystic inflammatory changes. PANCREAS: No main ductal dilatation. No peripancreatic fat stranding or free fluid. SPLEEN: Unremarkable. ADRENAL GLANDS: A 1.4 cm right adrenal nodule is unchanged dating back to 07/10/2010, most consistent with an adenoma for which no imaging follow-up is recommended. Normal left adrenal gland. KIDNEYS AND URETERS: The kidneys are normal in size, shape, and attenuation. 1.4 cm simple appearing cyst in the lower left kidney, for which no imaging follow-up is recommended. No hydronephrosis, hydroureter, or calculi seen. No perinephric stranding. BLADDER: Unremarkable. GASTROINTESTINAL TRACT: The stomach and the small bowel are nondilated. Normal appendix. Colonic diverticulosis with trace equivocal pericolonic fatty haziness in the sigmoid (sagittal image 52 series 7). Moderate degree of colonic stool content. No evidence of bowel obstruction. ABDOMINAL WALL: No significant hernia is appreciated. LYMPH NODES: No lymphadenopathy. VASCULAR: Scattered atherosclerotic disease. Normal caliber abdominal aorta. PELVIC VISCERA: Unremarkable. OSSEOUS STRUCTURES: Degenerative changes of the spine. No acute or aggressive appearing osseous findings. CT/CT abdomen pelvis w IV con IMPRESSION: 1. Colonic diverticulosis with trace equivocal pericolonic fatty haziness in the sigmoid colon which could represent very mild acute diverticulitis in the appropriate clinical context. 2. Moderate degree of colonic stool content suggesting constipation. 3. No other acute abdominal or pelvic abnormalities to explain the patient's symptoms.
[2023-07-08 13:34] LABS: Alanine Aminotransferase 14 U/L (0-31); Alkaline Phosphatase 75 U/L (39-117); Anion Gap 12 (12-20); Aspartate Amino Transferase 17 U/L (5-31); Bilirubin Total 0.2 mg/dL (0.0-1.0); Blood Urea Nitrogen 21 mg/dL (9-16); Calcium 9.3 mg/dL (8.4-10.2); Carbon Dioxide 26 mmol/L (22-29); Chloride 105 mmol/L (96-108); Estimated Glomerular Filt Rate > 60; Glucose Random 162 mg/dL (60-115); Potassium 4.1 mmol/L (3.3-5.1); Sodium 139 mmol/L (135-145); Total Protein 7.5 g/dL (6.5-8.0)
[2023-07-08] MEDS: iohexoL 350 MG/ML 75 ML INFUS..BTL 85 ML IV (15:59)
[2023-07-08] MEDS: Barium Sulfate Oral (Vanilla) 450 ML ORAL.SUSP 900 ML PO (16:01)
== END 2023-07-08 13:05 | disposition home or self-care (01) ==
LOC: HO.CT 13:04
PROVIDERS: PCP Nurse Practitioner Family; Visit Provider Nurse Practitioner Family
DX: R10.9 Unspecified abdominal pain (principal); I10 Essential (primary) hypertension
CPT/HCPCS: 36415; 74177; 80053; Q9967

== ENCOUNTER 2023-09-21 15:26 | Outpatient (REF) | payer MEDICARE, SELFPAY ==
--- NOTE | ~2023-09-21 | MR_ITS ---
EXAMINATION: MR LUMBAR SPINE WITHOUT CONTRAST CLINICAL INFORMATION: Low back pain radiating across abdomen COMPARISON: None TECHNIQUE: MRI of the lumbar spine was obtained utilizing localizer, coronal T2, and sagittal T2-weighted sequences. Patient was unable to tolerate further imaging. No axial imaging performed. FINDINGS: Smooth dextrocurvature of the upper to mid lumbar spine and mild levocurvature in the lower lumbar spine. Slight straightening of the normal lumbar lordosis. Slight anterolisthesis at L3-L4 greater than L2-L3 and slight retrolisthesis at L5-S1. Multilevel disc desiccation with disc height loss most pronounced and severe on the left at L3-L4 and on the right at L4-L5 and L5-S1. Incompletely characterized lumbar spondylosis with multilevel annular disc bulges and facet arthropathy contributing to varying degrees of neural foraminal narrowing. Moderate right L5-S1 greater than L4-L5 neural foraminal stenosis with mass effect along the exiting right L5 greater than L4 nerve roots, respectively. Mild neural foraminal narrowing on the right from L1-L2 through L3-L4 and on the left from L2-L3 through L5-S1, noting slight impingement along the exiting/extraforaminal right L3 nerve root at L3-L4. No high-grade spinal canal stenosis. The conus medullaris terminates at L1. Left lower pole renal cyst not requiring further imaging follow-up. Colonic diverticulosis. MR/MR lumbar spine wo con IMPRESSION: Lumbar spondylosis as above contributing to moderate right L5-S1 greater than L4-L5 neural foraminal stenosis with mass effect along the exiting right L5 greater than L4 nerve roots, respectively. No high-grade spinal canal stenosis. Repeat full diagnostic MRI may be performed when clinically feasible at a later date.
== END 2023-09-21 15:27 | disposition home or self-care (01) ==
LOC: HO.MRI 15:26
PROVIDERS: PCP Nurse Practitioner Family; Visit Provider Nurse Practitioner Family
DX: M54.50 Low back pain, unspecified (principal); R10.9 Unspecified abdominal pain
CPT/HCPCS: 72148

== ENCOUNTER 2024-06-20 09:18 | Emergency (ER) | payer MEDICARE, SELFPAY ==
--- NOTE | ~2024-06-20 | CT_ITS ---
EXAMINATION: CT ABDOMEN AND PELVIS WITHOUT CONTRAST CLINICAL INFORMATION: Lower abdominal pain. Dysuria. Constipation. COMPARISON: CT abdomen and pelvis July 08, 2023 TECHNIQUE: Multidetector volumetric imaging was performed from the superior aspect of the liver through the pubic symphysis. Sagittal and coronal reformatted images were obtained on the technologist's workstation. This CT examination was performed using dose optimization techniques as appropriate, variously including the following: *Automated exposure control *Adjustment of mA and/or kV according to patient size (this includes techniques or standardized protocols for targeted exams where dose is matched to indication/reason for exam; i.e. extremities or head) *Use of iterative reconstruction technique DLP: 492 mGy-cm FINDINGS: LUNG BASES: The visualized lung bases are unremarkable. LIVER, GALLBLADDER, AND BILIARY TREE: The liver is normal in size, shape, and attenuation. No focal hepatic lesion or biliary ductal dilatation is present. The gallbladder is unremarkable with no evidence of radiopaque gallstones, gallbladder wall thickening, or obvious pericholecystic inflammatory changes. PANCREAS: Unremarkable. SPLEEN: Unremarkable. ADRENAL GLANDS: Unremarkable. KIDNEYS AND URETERS: The kidneys are normal in size, shape, and attenuation. No hydronephrosis, hydroureter, or calculi seen. No perinephric stranding. BLADDER: Unremarkable. GASTROINTESTINAL TRACT: There are numerous diverticula of the sigmoid and descending colon. There is no diverticulitis. There is no bowel wall thickening /edema. There is no bowel obstruction. There is a moderate volume of stool in the colon. The appendix is normal . The small bowel loops are unremarkable. The stomach is normal. There is no hiatal hernia. ABDOMINAL WALL: No significant hernia is appreciated. LYMPH NODES: Normal. VASCULAR: Scattered vascular calcifications of the distal aorta and iliac arteries. There is no aneurysm. PELVIC VISCERA: Unremarkable. OSSEOUS STRUCTURES: Advanced multilevel degenerative spondylosis spine. CT/CT abdomen pelvis wo IV con IMPRESSION: 1. No acute abnormality CT scan abdomen pelvis. 2. Diverticulosis of colon. No acute change of the bowel. Fleischner guidelines were followed. Electronically signed by: Trevor Joshi MD 06/20/2024 04:56 PM [facility]
[2024-06-20 09:25] VITALS: PULSE 85; RESP 14; TEMP 36.4; O2SAT 98; BMI 27.5
[2024-06-20 09:44] LABS: MANUAL DIFF FLAG NO
[2024-06-20 09:47] LABS: Appearance Urine Clear; Basophils Percent Auto 0.4 % (0-2); Color Urine Yellow; Eosinophils Absolute Auto 0.2 X10*3/uL (0.0-0.4); Eosinophils Percent Auto 1.5 % (0-4); Glucose Urine UA Negative (Negative); Hematocrit 39.6 % (37.0-47.0); Hemoglobin 13.4 g/dl (12.0-16.0); Imm Gran Abs Auto 0.05 X10*3/uL (0.00-0.03); Imm Gran Pct Auto 0.5 % (0.0-0.4); Leukocyte Esterase Urine Trace (Negative); Lymphocytes Absolute Auto 4.7 X10*3/uL (1.2-4.9); Lymphocytes Percent Auto 43.8 % (20-40); Mean Corpuscular HGB Conc 33.8 g/dl (31.0-35.0); Mean Corpuscular Hemoglobin 30.4 pg (27.0-33.0); Mean Corpuscular Volume 89.8 fL (80.0-98.0); Mean Platelet Volume 10.7 fL (9.4-12.3); Monocytes Absolute Auto 0.7 X10*3/uL (0.1-1.2); Monocytes Percent Auto 6.3 % (2-11); Neutrophils Absolute Auto 5.1 x10*3/uL (2.0-8.3); Neutrophils Percent Auto 47.5 % (45-73); Nitrite Urine Negative (Negative); PH 7.5 (5.0-9.0); Platelet Count 229 X10*3/uL (160-400); Red Blood Count 4.41 X10*6/uL (4.20-5.50); Red Cell Distribution Width 13.4 % (11.0-16.0); Specific Gravity - Urine <= 1.005 (1.005-1.025); UMIC TRIGGER UACC YES; Urine Blood Negative (Negative); Urine Ketones Negative (Negative); Urine Protein Negative (Neg-Trace); White Blood Count 10.7 X10*3/uL (4.8-10.8)
[2024-06-20 09:49] LABS: Bacteria Urine None Seen (None Seen); Hyaline Casts Urine 0-2 /LPF (0-2); RBC Urine 0-2 /HPF (0-2); Squamous Epithelial Cell Urine 0-2 /HPF (0-2); WBC Urine 0-5 /HPF (0-5)
[2024-06-20 09:56] LABS: Anion Gap 14 (12-20); Blood Urea Nitrogen 13 mg/dL (9-16); Calcium 9.4 mg/dL (8.4-10.2); Carbon Dioxide 23 mmol/L (22-29); Chloride 105 mmol/L (96-108); Creatinine Clr Calc Pharmacy 40.8; Estimated Glomerular Filt Rate > 60; Glucose Random 154 mg/dL (60-115); Potassium 4.1 mmol/L (3.3-5.1); Sodium 138 mmol/L (135-145)
[2024-06-20 15:23] LABS: Alanine Aminotransferase 16 U/L (0-31); Albumin Level 3.9 g/dL (3.5-5.0); Alkaline Phosphatase 74 U/L (39-117); Aspartate Amino Transferase 23 U/L (5-31); Bilirubin Direct 0.1 mg/dL (0.0-0.5); Bilirubin Total 0.3 mg/dL (0.0-1.0); Lipase 19 U/L (8-78); Magnesium 1.5 mg/dL (1.6-2.6)
[2024-06-20 15:46] VITALS: BP 188/68; PULSE 68; RESP 16; O2SAT 95
--- NOTE | 2024-06-20 16:30 | ED_ITS ---
HPI - Abdominal Pain General Chief Complaint: Abdominal Pain Stated Complaint: abd pain bowel pain Time Seen by Provider: 06/20/24 14:14 Source: patient, RN notes reviewed and old records reviewed Mode of arrival: ambulatory History of Present Illness ED Provider: Laquita Hernandez PA-C HPI narrative: 88-year-old female with a past medical history of hypertension presenting to the ED complaining of lower abdominal pain, dysuria, and constipation. Reports last BM 2 days ago. Admits is passing flatus. Denies nausea, vomiting, hematuria, CP/SOB, flank pain Related Data Previous Rx's ?Medication ?Instructions ?Recorded azithromycin 250 mg tablet See Rx Instructions PO .COMPLEX #6 08/26/22 tabs prednisone 20 mg tablet 40 mg (2 x 20 mg) PO DAILY 4 days 08/26/22 #8 tabs Allergies Allergy/AdvReac Type Severity Reaction Status Date / Time No Known Allergies Allergy Verified 06/20/24 09:28 [No Known Allergies*] Review of Systems Review of Systems Yes all other systems are reviewed and are negative Constitutional: Reports as per [facility] Past Medical History Attestation statement: The following information was validated with the patient. Source: old records reviewed Medical History HTN (hypertension) Social History Social History Smoked in Last 30 Days: No Use of substances other than those prescribed or required for medical reasons: No Advance Directives: No Advance Directives Information Provided: Yes Do you have a plan to hurt others: No Plan Physical Exam ED Vital Signs: Vital Signs - 24 hr 06/20/24 09:25 06/20/24 15:46 Temperature 97.6 F Pulse Rate 85 68 Respiratory Rate 14 16 Blood Pressure 188/68 H Pulse Oximetry 98 95 Oxygen Delivery Method Room Air Room Air BMI result Body Mass Index 27.5 Const General: cooperative, healthy appearing and no acute distress Orientation/consciousness: patient oriented x3 Limitations: no limitations HENMT Head: Yes normal to inspection and Yes atraumatic Ears: hearing grossly normal bilaterally General nose exam: Normal external nose present Face and sinus: Yes normal facial exam Eyes General: appearance normal, both eyes and all related structures EOM: EOMs intact bilaterally Neck Neck: Yes normal visual inspection and Yes no meningeal signs Resp Effort & Inspection: normal respiratory effort and no respiratory distress Auscultation: clear to auscultation bilaterally Cardio Rate: regular rate Heart sounds: S1 normal heart sound present and S2 normal heart sound present GI Inspection: Yes normal to inspection Palpation (GI): Soft to palpation, Tenderness to palpation present (GI) (Suprapubic) with no rebound tenderness, no guarding and not rigid General: Yes no CVA tenderness Back/Spine/Pelvis Back: no CVA tenderness Skin Rashes: no rashes Wounds: no wounds Neuro General: patient oriented x3, tone normal and no meningeal signs Cranial nerves: Yes CN's II-XII intact bilaterally Gait exam (Neuro): Normal gait present Extrem General: Yes normal to inspection Course Course Course Narrative: -magnesium mildly low 1.5 > p.o. repletion given. Labs otherwise reassuring -UA not infected 1700-- CT abdomen pelvis wo IV con IMPRESSION: 1. No acute abnormality CT scan abdomen pelvis. 2. Diverticulosis of colon. No acute change of the bowel. Fleischner guidelines were followed. > will discharge patient home with Pyridium for cystitis and urology/PCP follow- up Results discussed with patient including worrisome signs and symptoms and strict return precautions, and when to return to the emergency department. They verbalized understanding and feel safe for discharge at this time. Medical Decision Making Medical Decision Making [facility] Narrative: 88-year-old female with a past medical history of hypertension presenting to the ED complaining of lower abdominal pain, dysuria, and constipation. On exam vital signs stable, NAD, nontoxic appearing, abdomen soft with suprapubic tenderness, no CVAT. Concern for UTI vs constipation vs SBO or fecal impaction. Lower suspicion for appendicitis/diverticulitis, cholecystitis or pancreatitis at this time Plan: Labs, UA, CT, re-evaluate Please refer to course for remaining clinical decision making, interpretation of labs/imaging results, and discussions with consultants and/or family members. Differential Diagnosis Differential Diagnoses: The differential diagnosis associated with the presentation includes As above Admission/Observation Consideration of admission/observation: Escalation of care including admission/observation considered Lab Data [facility] Lab Attestation statement: I reviewed the patient's lab results. 06/20/24 09:41 06/20/24 09:41 Labs: Lab Results 11/18/24 Range/Units 09:41 WBC 10.7 (4.8-10.8) X10*3/uL RBC 4.41 (4.20-5.50) X10*6/uL Hgb 13.4 (12.0-16.0) g/dl Hct 39.6 (37.0-47.0) % MCV 89.8 (80.0-98.0) fL MCH 30.4 (27.0-33.0) pg MCHC 33.8 (31.0-35.0) g/dl RDW 13.4 (11.0-16.0) % Plt Count 229 (160-400) X10*3/uL MPV 10.7 (9.4-12.3) fL Immature Gran % (Auto) 0.5 H (0.0-0.4) % Neut % (Auto) 47.5 (45-73) % Lymph % (Auto) 43.8 H (20-40) % [place] % (Auto) 6.3 (2-11) % Eos % (Auto) 1.5 (0-4) % Baso % (Auto) 0.4 (0-2) % Lymph # (Auto) 4.7 (1.2-4.9) X10*3/uL [place] # (Auto) 0.7 (0.1-1.2) X10*3/uL Eos # (Auto) 0.2 (0.0-0.4) X10*3/uL Baso # (Auto) 0.0 (0.0-0.2) X10*3/uL Abs Immat Gran (auto) 0.05 H (0.00-0.03) X10*3/uL Absolute Neuts (auto) 5.1 (2.0-8.3) x10*3/uL Absolute Nucleated RBC 0.000 (0.0-0.012) X10*3/uL Nucleated RBC % (auto) 0.0 (0.0-0.2) /100WBC Sodium 138 (135-145) mmol/L Potassium 4.1 (3.3-5.1) mmol/L Chloride 105 (96-108) mmol/L Carbon Dioxide 23 (22-29) mmol/L Anion Gap 14 (12-20) BUN 13 (9-16) mg/dL Creatinine 0.81 (0.5-1.4) mg/dL Estim Creat Clear Calc 40.8 Estimated GFR > 60 Random Glucose 154 H (60-115) mg/dL Calcium 9.4 (8.4-10.2) mg/dL Magnesium 1.5 L (1.6-2.6) mg/dL Total Bilirubin 0.3 (0.0-1.0) mg/dL Direct Bilirubin 0.1 (0.0-0.5) mg/dL AST 23 (5-31) U/L ALT 16 (0-31) U/L Alkaline Phosphatase 74 (39-117) U/L Total Protein 7.0 (6.5-8.0) g/dL Albumin 3.9 (3.5-5.0) g/dL Lipase 19 (8-78) U/L Urine Color Yellow Urine Appearance Clear Urine pH 7.5 (5.0-9.0) Ur Specific [place] <= 1.005 (1.005-1.025) Urine Protein Negative (Neg-Trace) mg/dL Urine Glucose (UA) Negative (Negative) mg/dL Urine Ketones Negative (Negative) mg/dL Urine Blood Negative (Negative) Urine Nitrite Negative (Negative) Ur Leukocyte Esterase Trace H (Negative) Urine RBC 0-2 (0-2) /HPF Urine WBC 0-5 (0-5) /HPF Ur Squamous Epith Cells 0-2 (0-2) /HPF Urine Bacteria None Seen (None Seen) Hyaline Casts 0-2 (0-2) /LPF Radiology Impression Discussion of test interpretation with radiology: I have reviewed the radiologist's reading. Independent Historian Clinical information obtained from an independent historian. History obtained from or confirmed by: Spouse External Record Review External record reviewed: Inpatient record, Office record, Outpatient record, Prior outpatient labs, Prior outpatient radiology, Primary care record and Outside ED record Tests considered The following testing was considered but not selected: As above Prescription Management I considered prescription management with: Pain Medication Chronic Conditions Patient?s care impacted by: Hypertension Social Determinants Patient?s care significantly limited by Social Determinants of Health including: Other Social Determinant of Health Discharge Plan Discharge Clinical Impression: Abdominal pain, Constipation, Dysuria Patient Disposition: Still a Patient Prescriptions: No Action prednisone 20 mg tablet 40 mg PO DAILY 4 Days Qty: 8 0RF azithromycin 250 mg tablet See Rx Instructions .ROUTE .COMPLEX Qty: 6 0RF Rx Instructions: For 250 mg dose pack: take 500 mg today (day 1), then 250 mg for 4 days (days 2-5) Print Language: Russian
[2024-06-20] MEDS: Phenazopyridine HCL 100 MG TABLET PO (17:19)
[2024-06-20] MEDS: Magnesium Oxide 400 MG TABLET 800 MG PO (17:19)
[2024-06-20 17:23] VITALS: BP 188/68; PULSE 68; RESP 16; TEMP 36.4; O2SAT 95
--- OUTSIDE RECORDS SUMMARY | 2024-06-24 13:09 | XMS_ITS | Continuity of Care Document ---
Author Organization [facility] Rip lt Address [address] [place] [address]- Care Team Providers Care Gastroenterology Teacher Name Role Phone Raza BARAHONA, Natalia Gonzales Primary Care Physician Encounter [facility] Date(s): 09/02/22 - 10/02/22 [facility] Adult [address] [place] [address]- Allergies, Adverse Reactions, Alerts No Known Allergies Immunizations Given and Recorded Vaccine Date Status Refusal Reason influenza virus vaccine, inactivated 07/03/21 Hayden rded influenza virus vaccine, inactivated 05/01/20 Give n influenza virus vaccine, inactivated 1 06/01/19 Gi ralph influenza virus vaccine, inactivated 05/25/18 Hayden rded influenza virus vaccine, inactivated 05/17/18 Hayden rded influenza virus vaccine, inactivated 05/18/17 Hayden rded influenza virus vaccine, inactivated 05/31/16 Hayden rded influenza virus vaccine, inactivated 05/10/10 Hayden rded SARS-CoV-2 (COVID-19) mRNA-1273 vaccine 10/13/20 R ecorded SARS-CoV-2 (COVID-19) mRNA-1273 vaccine 09/15/20 R ecorded Diphtheria/Tet/Pertussis, Acel (oldterm) 2 03/05/17 Given pneumococcal 13-valent vaccine 10/09/16 Given 1Result Comment: [facility]-[id number] 2Admin Note: declined Medications amLODIPine 2.5 mg oral tablet 2.5 mg, 1, tablet, By Mouth, Daily, replace 5mg, # 30 tablet, Refills 0, Tot. Refills 0, Maintenance, 09/15/22 9:11:00 EST, Route to Pharmacy Electronically, [facility]/pharmacy #[id number], Partial fill upon patient request if the prescription is for a schedule I... Start Date: 09/15/22 Status: Ordered aspirin 81 mg oral delayed release tablet 81 mg, 1, tablet, By Mouth, Daily, # 30 tablet, Refills 0, Maintenance, 12/24/16 9:31:57 Start Date: 12/24/16 Status: Ordered estradiol 0.1 mg/g vaginal cream See Instructions, 2 gm daily at bedtime for 2 weeks then reduce to 1gm daily at bedtime. then 1 gm 2 times a week, # 42.5 Gm, 6 Refills, Maintenance, 09/12/19 16:11:00 EST, [facility] # [facility], 150, cm, 09/12/19 11:05:00 EST, Height Start Date: 09/12/19 Status: Ordered gabapentin 100 mg oral capsule 200 mg, 2, capsule, By Mouth, 3 times a day, # 180 capsule, Refills 1, Tot. Refills 1, Maintenance,09/15/22 9:10:00 EST, Route to Pharmacy Electronically, [facility]/pharmacy #[id number], 150, cm, 09/15/22 8:51:00 EST, Height Start Date: 09/15/22 Status: Ordered Problem List Condition Confirmation Course Effective Dates Status Health St atus Informant Arthritis Confirmed Active Benign hypertension Confirmed Active Chronic lower back pain Confirmed Active Constipation Confirmed Active Gout Confirmed Active Osteopenia Confirmed Active Paresthesia Confirmed Active Prediabetes Confirmed Active Social History Social History Type Response Smoking Status Never smoker entered on: 10/09/16 Sex Patient Care team information Care Team Personnel Name: Raza BARAHONA, Natalia Gonzales Position: S PCO Associate Professional Member Role: PCP Address: Address: [address] [place] [id number]- Care Team Related Persons Name: ALLEN KILPATRICK Address: [place] [address] Name: VIET KILPATRICK
--- OUTSIDE RECORDS SUMMARY | 2024-06-24 13:09 | XMS_ITS | Continuity of Care Document ---
Author Organization [facility] Rip lt Address [address] [place] [phone]- Care Team Providers Care Bulb Sorter Name Role Phone Raza BARAHONA, Natalia Gonzales Primary Care Physician Encounter [facility] Date(s): 09/01/22 - 09/08/22 [facility] Adult [address] [place] [address]- Encounter Diagnosis Prediabetes(Discharge Diagnosis) - 09/01/22 Benign hypertension(Discharge Diagnosis) - 09/01/22 Bronchitis(Discharge Diagnosis) - 09/01/22 Attending Physician: Raza BARAHONA, Natalia Gonzales Allergies, [...] Given 1Result Comment: [facility]-[id number] 2Admin Note: declined Medications amLODIPine 5 mg oral tablet 5 mg, 1, tablet, By Mouth, Daily, replace 10mg, # 30 tablet, Refills 1, Tot. Refills 1, Maintenance, 09/01/22 8:55:00 EST, Route to Pharmacy Electronically, [facility]/pharmacy #[id number], Partial fill upon patient request if the prescription is for a schedule II... Start Date: 09/01/22 Stop Date: 10/31/22 Status: Ordered aspirin 81 mg oral delayed release tablet 81 mg, 1, tablet, By Mouth, Daily, # 30 tablet, Refills 0, Maintenance, 12/24/16 9:31:57 Start Date: 12/24/16 Status: Ordered docusate sodium 100 mg oral capsule 100 mg, 1, capsule, By Mouth, 2 times a day, PRN, # 60 capsule, Refills 0, Tot. Refills 0, Maintenance, for constipation, 05/01/20 9:36:00 EDT, Route to Pharmacy Electronically, [facility] # [facility], 150, cm, 05/01/20 9:15:00 EDT, Height Start Date: 05/01/20 Stop Date: 05/31/20 Status: Ordered estradiol 0.1 mg/g vaginal cream See Instructions, 2 gm daily at bedtime for 2 weeks then reduce to 1gm daily at bedtime. then 1 gm 2 times a week, # 42.5 Gm, 6 Refills, Maintenance, 09/12/19 16:11:00 EST, [facility] # 50, 150, cm, 09/12/19 11:05:00 EST, Height Start Date: 09/12/19 Status: Ordered famotidine 20 mg oral tablet 20 mg, 1, tablet, By Mouth, 2 times a day, # 60 tablet, Refills 3, Tot. Refills 3, Maintenance, 05/01/20 9:36:00 EDT, Route to Pharmacy Electronically, [facility] # 50, 150, cm, 05/01/20 9:15:00 EDT, Height Start Date: 05/01/20 Status: Ordered gabapentin 100 mg oral capsule 200 mg, 2, capsule, By Mouth, 3 times a day, # 180 capsule, Refills 1, Tot. Refills 1, Maintenance,01/08/22 10:45:00 EDT, Route to Pharmacy Electronically, [facility]/pharmacy #[id number], 150, cm, 01/08/22 10:44:00 EDT, Height Start Date: 01/08/22 Status: Ordered Problem List Condition Confirmation Course Effective Dates Status Health St atus Informant Arthritis Confirmed Active Benign hypertension Confirmed Active Chronic lower back pain Confirmed Active Constipation Confirmed Active Gout Confirmed Active Obese class I Confirmed Active Osteopenia Confirmed Active Paresthesia Confirmed Active Prediabetes Confirmed Active Diagnosis Diagnosis Type Effective Dates Health Status Clinical Service Informant Prediabetes Discharge Diagnosis 09/01/22 Benign hypertension Discharge Diagnosis 09/01/22 Bronchitis Discharge Diagnosis 09/01/22 Vital Signs Most recent to oldest [Reference Range]: 1 Height 150 cm (09/01/22 8:37 AM) Weight 66.5 kg (09/01/22 8:37 AM) Oxygen Saturation [94-100 %] 98 % (09/01/22 8:37 AM) Pulse Rate [55-90 bpm] 80 bpm (09/01/22 8:37 AM) Body Mass Index [18.5-24.99 kg/m2] 29.56 kg/m2 *H* (09/01/22 8:37 AM) Blood Pressure [90-138/55-84 mm Hg] 153/ 68mm Hg *H* (09/01/22 8:37 AM) Blood pressure sites Arm, left (09/01/22 8:37 AM) Weight Obtained Via Standing scale (09/01/22 8:37 AM) Social History Social History Type Response Smoking Status Never smoker entered on: 10/09/16 Sex Note * Yanet Zaragoza: PERFORM, SIGN, VERIFY Event Display: Patient Education/Instruction Authored Date: [id number] [facility] *BMP So [place] Cisneros Clinical Summary Name CHEKO KHALIL Age 86 Years 1935 PCP aNtalia Person NP PCP Visit Date 09/01/2022 08:32:00 Additional Instructions: Scheduled Appointments?? Future Appointments ?*BMP??So[facility] ?Phone:??--?Fax:??-- ?Appt. Date:??09/15/2022?8:50 AM ?Scheduled Provider:??Natalia Person NP Follow-Up Instructions ?? With: Address: When: Natalia Person NP [address] [place] [address] [place] [address] 09/01/2022 12:00 AM Comments: 2 weeks f/u Diagnosis Prediabetes; Essential (primary) hypertension Medications: Please continue your medications until treatment is completed or stopped by your provider. Discuss any questions related to medications with your provider. Medications to Continue Taking That Have Changed [id number], [address] [place] [phone], [phone] - Amlodipine (amLODIPine 5 mg oral tablet) 1 tab(s) Oral Daily for 30 Days. replace 10mg. Refills: 1. Next Dose: Medications to Continue with No Changes These medications were not printed or sent to your pharmacy Aspirin (aspirin 81 mg oral delayed release tablet) 1 tab(s) Oral Daily. Next Dose: Docusate (docusate sodium 100 mg oral capsule) 1 capsule Oral twice a day as needed for constipation for 30 Days. Refills: 0. Next Dose: Estradiol Topical (estradiol 0.1 mg/g vaginal cream) 2 gm daily at bedtime for 2 weeks then reduce to 1gm daily at bedtime. then 1 gm 2 times a week. Refills: 6. Next Dose: Famotidine (famotidine 20 mg oral tablet) 1 tab(s) Oral twice a day. Refills: 3. Next Dose: Gabapentin (gabapentin 100 mg oral capsule) 2 capsule Oral 3 times a day. Refills: 1. Next Dose: No Longer Take the Following Medications Amlodipine-Benazepril (amlodipine-benazepril 5 mg-40 mg oral capsule) 1 capsule Oral Daily. Refills: 0. Tizanidine (tiZANidine 2 mg oral tablet) take 1-2 tablets By Mouth Every 8 hours; as needed Pain , Moderate. Refills: 0. Tizanidine (tiZANidine 2 mg oral tablet) 2 tab(s) Oral 3 times a day as needed Pain , Severe. Refills: 0. Allergy Info:?? NKA Medications Given This Visit Future Orders ?Hemoglobin A1C (Monitoring)? Order Date:09/01/22?- Complete on or after?09/01/22 Vital Signs Height 150 cm Weight 66.5 kg BMI 29.56 kg/m2 Blood Pressure 153 mm Hg/68 mm Hg Temperature Pulse Rate 80 bpm Respiratory Rate 02 Sat Mode of Delivery 98 %/ You can now view a summary of your hospital visit from the comfort of your home through a free online portal called [employer]. [employer] is a website that allows you to securely view your medical information including discharge summary, medications and follow-up visits. ??You can alsosend a secure electronic message to your doctor???s office to request appointments, renew medications or just ask a question. You can enroll at [email or web address] or register during your next office visit. Disclaimer:?? The information provided is of a general nature and is intended to be used in conjunction with the recommendations and advice of your health care practitioner. ??Every effort has been made to ensure that the information provided is accurate and complete at the time it is provided to you however, as your needs change, or, as new ??information becomes available, different or additional instructions may be required. If you have questions, please consult with your primary care provider or pharmacist, as appropriate. ??This information is not intended to serve as substitution for assessment and evaluation by a qualified health care provider. If you do not have a primary care provider, you may find a [facility] provider by calling [facility] at [phone]. For information about the plan of care including goals and instructions for your diagnosis, please see the patient education orders section of this document. Patient Education Materials?? The content of this educational material or handout may have been modified, supplemented, or adapted from its original content and format to support your individualized medical care. Patient Care team information Care Team Personnel Name: Raza BARAHONA, Natalia Gonzales Position: [facility] PCO Associate Professional Member Role: PCP Address: Address: [address] [place] [id number]- Care Team Related Persons Name: ALLEN KILPATRICK Address: [place] [address]
--- OUTSIDE RECORDS SUMMARY | 2024-06-24 13:09 | XMS_ITS | Continuity of Care Document ---
Author Organization [facility] Rip lt Address [address] [place] [address]- Care Team Providers Care Special Education Secretary Name Role Phone Raza BARAHONA, Natalia Gonzales Primary Care Physician Encounter [facility] Date(s): 10/07/22 - 10/14/22 [facility] Adult [address] [place] [address]- Encounter Diagnosis Benign hypertension(Discharge Diagnosis) - 10/07/22 Constipation(Discharge Diagnosis) - 10/07/22 Chronic lower back pain(Discharge Diagnosis) - 10/07/22 Attending Physician: Raza BARAHONA, Natalia Gonzales Referring Physician: Harper BANEGAS, Navneet Corley Allergies, Adverse Reactions, Alerts No Known Allergies Immunizations Given and Recorded Vaccine Date Status Refusal Reason influenza virus vaccine, inactivated 06/20/22 Hayden rded influenza virus vaccine, inactivated 07/03/21 Hayden rded [...] 13-valent vaccine 10/09/16 Given 1Result Comment: [facility]-[id number] 2Admin Note: declined Medications amLODIPine 2.5 mg oral tablet 1 tablet, By Mouth, Daily, # 30 tablet, 0 Refills, Maintenance, 10/13/22 14:43:00 EDT, [id number], 150, cm, 10/07/22 7:59:00 EST, Height Start Date: 10/13/22 Status: Ordered aspirin 81 mg oral delayed release tablet 81 mg, 1, tablet, By Mouth, Daily, # 30 tablet, Refills 0, Maintenance, 12/24/16 9:31:57 Start Date: 12/24/16 Status: Ordered docusate sodium 100 mg oral capsule 1 capsule = 100 mg, By Mouth, 2 times a day, # 60 capsule, 1 Refills, Maintenance, 10/07/22 7:43:00EST, [facility]/pharmacy #[id number], Partial fill upon patient request if the prescription is for a schedule IIopioid drug., 150, cm, 10/07/22 7:14:00 EST, Height Start Date: 10/07/22 Status: Ordered estradiol 0.1 mg/g vaginal cream See Instructions, 2 gm daily at bedtime for 2 weeks then reduce to 1gm daily at bedtime. then 1 gm 2 times a week, # 42.5 Gm, 6 Refills, Maintenance, 10/07/22 7:43:00 EST, [facility]/pharmacy #[id number], 150, cm, 10/07/22 7:14:00 EST, Height Start Date: 10/07/22 Status: Ordered gabapentin 100 mg oral capsule 200 mg, 2, capsule, By Mouth, 3 times a day, # 180 capsule, Refills 1, Tot. Refills 1, Maintenance,09/15/22 9:10:00 EST, Route to Pharmacy Electronically, [facility]/pharmacy #[id number], 150, cm, 09/15/22 8:51:00 EST, Height Start Date: 09/15/22 Status: Ordered Problem List Condition Confirmation Course Effective Dates Status Health St atus Informant Arthritis Confirmed Active Benign hypertension Confirmed Active Chronic lower back pain Confirmed Active Constipation Confirmed Active Gout Confirmed Active Osteopenia Confirmed Active Paresthesia Confirmed Active Prediabetes Confirmed Active Diagnosis Diagnosis Type Effective Dates Health Status Clinical Service Informant Benign hypertension Discharge Diagnosis 10/07/22 Constipation Discharge Diagnosis 10/07/22 Chronic lower back pain Discharge Diagnosis 10/07/22 Vital Signs Most recent to oldest [Reference Range]: 1 2 Height 150 cm (10/07/22 7:59 AM) 150 cm (10/07/22 7:14 AM) Weight 66.2 kg (10/07/22 7:14 AM) Oxygen Saturation [94-100 %] 97 % (10/07/22 7:14 AM) Pulse Rate [55-90 bpm] 87 bpm (10/07/22 7:14 AM) Body Mass Index [18.5-24.99 kg/m2] 29.42 kg/m2 *H* (10/07/22 7:14 AM) Blood Pressure [90-138/55-84 mm Hg] 160/ 70mm Hg *H* (10/07/22 7:59 AM) 163/67mm Hg *H* (10/07/22 7:14 AM) Temperature [96.8-100.4 DegF] 97.1 DegF (10/07/22 7:14 AM) Mode of Delivery (Oxygen) Room air (10/07/22 7:14 AM) Blood pressure sites Arm, right (10/07/22 7:14 AM) Temperature Route Temporal (10/07/22 7:14 AM) Weight Obtained Via Standing scale (10/07/22 7:14 AM) Social History Social History Type Response Smoking Status Never smoker entered on: 10/09/16 Sex Note * Yanet Zaragoza: PERFORM, SIGN, VERIFY Event Display: Patient Education/Instruction Authored Date: [id number] [facility] *[facility] Clinical Summary Name CHEKO KHALIL Age 87 Years 1935 PCP Natalia Person NP [id number] Visit Date 10/07/2022 07:12:00 Additional Instructions: Scheduled Appointments?? Future Appointments ?No Future Appointments Scheduled Follow-Up Instructions ?? With: Address: When: Natalia Person NP [address] [place], [place] [id number] 10/07/2022 12:00 AM Comments: 4 weeks- long Diagnosis Constipation, unspecified; Low back pain, unspecified; Essential (primary) hypertension Medications: Please continue your medications until treatment is completed or stopped by your provider. Discuss any questions related to medications with your provider. New Medications [id number], [address] [place] [id number], [phone] Docusate (docusate sodium 100 mg oral capsule) 1 capsule Oral twice a day. Refills: 1. Next Dose: Medications to Continue with No Changes [id number], [address] [place] [id number], [phone] Estradiol Topical (estradiol 0.1 mg/g vaginal cream) 2 gm daily at bedtime for 2 weeks then reduce to 1gm daily at bedtime. then 1 gm 2 times a week. Refills: 6. Next Dose: These medications were not printed or sent to your pharmacy Amlodipine (amLODIPine 2.5 mg oral tablet) 1 tab(s) Oral Daily. replace 5mg. Refills: 0. Next Dose: Aspirin (aspirin 81 mg oral delayed release tablet) 1 tab(s) Oral Daily. Next Dose: Gabapentin (gabapentin 100 mg oral capsule) 2 capsule Oral 3 times a day. Refills: 1. Next Dose: Allergy Info:?? NKA Medications Given This Visit Future Orders ?No future orders Vital Signs Height 150 cm Weight 66.2 kg BMI 29.42 kg/m2 Blood Pressure 163 mm Hg/67 mm Hg Temperature 97.1 DegF Pulse Rate 87 bpm Respiratory Rate 02 Sat Mode of Delivery 97 %/Room air You can now view a summary of your hospital visit from the comfort of your home through a free online portal called [employer]. [employer] is a website that allows you to securely view your medical information including discharge summary, medications and follow-up visits. ??You can alsosend a secure electronic message to your doctor???s office to request appointments, renew medications or just ask a question. You can enroll at [email or web address] or register during your next office [...] primary care provider, you may find a [facility] provider by calling [facility] at [phone]. For information about the plan of care including goals and instructions for your diagnosis, please see the patient education orders section of this document. Patient Education Materials?? The content of this educational material or handout may have been modified, supplemented, or adapted from its original content and format to support your individualized medical care. Patient Care team information Care Team Personnel Name: Natalia Person NP Position: [facility] PCO Associate Professional Member Role: PCP Address: Address: [address] [place] [address]- Care Team Related Persons Name: ALLEN KILPATRICK Address: [place] [address] Name: VIET KILPATRICK
--- OUTSIDE RECORDS SUMMARY | 2024-06-24 13:09 | XMS_ITS | Continuity of Care Document ---
Author Organization [facility] Rip lt Address [address] [place] [address]- Care Team Providers Care Radio Equipment Repairer Name Role Phone Raza BARAHONA, Natalia Gonzales Primary Care Physician [phone] Encounter [facility] Date(s): 09/17/23 - 09/24/23 [facility] Adult [address] [place] [address]- Encounter Diagnosis Benign hypertension(Discharge Diagnosis) - 09/17/23 Constipation(Discharge Diagnosis) - 09/17/23 Dysuria(Discharge Diagnosis) - 09/17/23 Cough(Discharge Diagnosis) - 09/17/23 Attending Physician: Raza BARAHONA, Natalia Gonzales Referring Physician: Navneet Saleem MD Allergies, Adverse Reactions, Alerts No Known Allergies Immunizations Given and Recorded Vaccine Date Status Refusal Reason influenza virus vaccine, inactivated 06/04/23 Hayden rded influenza virus vaccine, inactivated 06/20/22 Hayden rded [...] pneumococcal 13-valent vaccine 10/09/16 Given 1Result Comment: [facility]-[id number] 2Admin Note: declined Medications amLODIPine 5 mg oral tablet 5 mg, 1, tablet, By Mouth, Daily, # 30 tablet, Refills 2, Tot. Refills 2, Maintenance, 07/08/23 11:53:00 EST, Route to Pharmacy Electronically, [facility] #[id number], Partial fill upon patient request if the prescription is for a schedule II opioid drug.... Start Date: 07/08/23 Status: Ordered aspirin 81 mg oral delayed release tablet 81 mg, 1, tablet, By Mouth, Daily, # 30 tablet, Refills 0, Maintenance, 12/24/16 9:31:57 Start Date: 12/24/16 Status: Ordered Estradiol Cream 0.012% Estradiol Cream 0.012%, See Instructions, # 42.5 Gm, Refills 5, Tot. Refills 5, Maintenance, Apply 1 fingertip worth amouth to vagina at bedtime nightly for 2 weeks, then twice wekly. 90 days, 09/17/23 10:23:00 EST, please dispense compounded med; w... Start Date: 09/17/23 Status: Ordered gabapentin 100 mg oral capsule 200 mg, 2, capsule, By Mouth, 3 times a day, # 180 capsule, Refills 1, Tot. Refills 1, Maintenance,08/13/23 8:04:00 EST, Route to Pharmacy Electronically, [facility]/pharmacy #[id number], 150, cm, 08/13/23 7:50:00 EST, Height, 67.6, kg, 01/30/23 14:53:00 EDT, Dry... Start Date: 08/13/23 Status: Ordered Problem List Condition Confirmation Course Effective Dates Status Health St atus Informant Arthritis Confirmed Active Benign hypertension Confirmed Active Chronic lower back pain Confirmed Active Constipation Confirmed Active Gout Confirmed Active Obese class I Confirmed Active Osteopenia Confirmed Active Paresthesia Confirmed Active Type II diabetes mellitus Confirmed Active Diagnosis Diagnosis Type Effective Dates Health Status Clinical Service Informant Benign hypertension Discharge Diagnosis 09/17/23 Constipation Discharge Diagnosis 09/17/23 Dysuria Discharge Diagnosis 09/17/23 Cough Discharge Diagnosis 09/17/23 Vital Signs Most recent to oldest [Reference Range]: 1 2 3 Height 150 cm (09/17/23 10:16 AM) 150 cm (09/17/23 10:04 AM) 150 cm (09/17/23 9:48 AM) Weight 68.2 kg (09/17/23 9:48 AM) Oxygen Saturation [94-100 %] 99 % (09/17/23 9:48 AM) Pulse Rate [55-90 bpm] 69 bpm (09/17/23 9:48 AM) Body Mass Index [18.5-24.99 kg/m2] 30.31 kg/m2 *>HHI* (09/17/23 9:48 AM) Blood Pressure [90-138/55-84 mm Hg] 139/70mm Hg *H* (09/17/23 10:16 AM) 150/70mm Hg *H* (09/17/23 10:04 AM) 147/76mm Hg *H* (09/17/23 9:48 AM) Blood pressure sites Arm, left (09/17/23 10:04 AM) Arm, left (09/17/23 9:48 AM) Weight Obtained Via Standing scale (09/17/23 9:48 AM) Social History Social History Type Response Smoking Status Never smoker entered on: 10/09/16 Sex Note * Gisela Law: PERFORM, SIGN, VERIFY Event Display: Patient Education/Instruction Authored Date: [id number] [facility] *[facility] Clinical Summary Name CHEKO KHALIL Age 87 Years 1935 PCP Natalia Person NP PCP Visit Date 09/17/2023 09:39:00 Additional Instructions: Scheduled Appointments?? Future Appointments ?No Future Appointments Scheduled Follow-Up Instructions ?? With: Address: When: Natalia Person NP [address] [facility] Adult [facility] [place] [id number] Comments: 2 months long Diagnosis Constipation, unspecified; Dysuria; Cough, unspecified; Essential (primary) hypertension Medications: Please continue your medications until treatment is completed or stopped by your provider. Discuss any questions related to medications with your provider. New Medications [facility]/pharm[facility] #[id number], [address] [place] [id number], [phone] Miscellaneous Rx (Estradiol Cream 0.012%) Apply 1 fingertip worth amouth to vagina at bedtime nightly for 2 weeks, then twice wekly. 90 days. Refills: 5. Next Dose: PredniSONE (predniSONE 20 mg oral tablet) 1 tab(s) Oral Daily for 5 Days. Refills: 0. Next Dose: Medications to Continue with No Changes These medications were not printed or sent to your pharmacy Amlodipine (amLODIPine 5 mg oral tablet) 1 tab(s) Oral Daily. Refills: 2. Next Dose: Aspirin (aspirin 81 mg oral delayed release tablet) 1 tab(s) Oral Daily. Next Dose: Gabapentin (gabapentin 100 mg oral capsule) 2 capsule Oral 3 times a day. Refills: 1. Next Dose: No Longer Take the Following Medications Estradiol Topical (estradiol 0.1 mg/g vaginal cream) 2 gm daily at bedtime for 2 weeks then reduce to 1gm daily at bedtime. then 1 gm 2 times a week. Refills: 6. Allergy Info:?? NKA Medications Given This Visit Future Orders ?No future orders Vital Signs Height 150 cm Weight 68.2 kg BMI 30.31 kg/m2 Blood Pressure 139 mm Hg/70 mm Hg Temperature Pulse Rate 69 bpm Respiratory Rate 02 Sat Mode of Delivery 99 %/ You can now view a summary of your hospital visit from the comfort of your home through a free online portal called [employer]. [employer] is a website that allows you to securely view your medical information including discharge summary, medications and follow-up visits. ??You can alsosend a secure electronic message to your doctor???s office to request appointments, renew medications or just ask a question. You can enroll at [email or web address] or register during your next office visit. [...] primary care provider, you may find a [facility] provider by calling [facility] at [phone]. [facility], in keeping with [facility] guidance, no longer requires face masks for staff, patientsor visitors in most situations. Similar to time spent indoors at other locations, there is the chance that you were exposed to respiratory viruses during your time with us (such as flu or COVID-19).? If you develop symptoms concerning for a viral respiratory infection, please seek testing (and treatment if indicated) from your medical provider or home test kit. For information about the plan of care including goals and instructions for your diagnosis, please see the patient education orders section of this document. Patient Education Materials?? The content of this educational material or handout may have been modified, supplemented, or adapted from its original content and format to support your individualized medical care. * Gisela Law: PERFORM, SIGN, VERIFY Event Display: Patient Education/Instruction Authored Date: [id number] [facility] *[facility] Clinical Summary Name CHEKO KHALIL Age 87 Years 1935 PCP Natalia Person NP PCP Visit Date 09/17/2023 09:39:00 Additional Instructions: Scheduled Appointments?? Future Appointments ?No Future Appointments Scheduled Follow-Up Instructions ?? With: Address: When: Raza BARAHONA, Natalia Gonzales [address] [place] [address] Road [facility] Adult [place], [place] [id number] Comments: 2 months long Diagnosis Constipation, unspecified; Dysuria; Cough, unspecified; Essential (primary) hypertension Medications: Please continue your medications until treatment is completed or stopped by your provider. Discuss any questions related to medications with your provider. New Medications [id number], [address] [place] [id number], [phone] Miscellaneous Rx (Estradiol Cream 0.012%) Apply 1 fingertip worth amouth to vagina at bedtime nightly for 2 weeks, then twice wekly. 90 days. Refills: 5. Next Dose: PredniSONE (predniSONE 20 mg oral tablet) 1 tab(s) Oral Daily for 5 Days. Refills: 0. Next Dose: Medications to Continue with No Changes These medications were not printed or sent to your pharmacy Amlodipine (amLODIPine 5 mg oral tablet) 1 tab(s) Oral Daily. Refills: 2. Next Dose: Aspirin (aspirin 81 mg oral delayed release tablet) 1 tab(s) Oral Daily. Next Dose: Gabapentin (gabapentin 100 mg oral capsule) 2 capsule Oral 3 times a day. Refills: 1. Next Dose: No Longer Take the Following Medications Estradiol Topical (estradiol 0.1 mg/g vaginal cream) 2 gm daily at bedtime for 2 weeks then reduce to 1gm daily at bedtime. then 1 gm 2 times a week. Refills: 6. Allergy Info:?? NKA Medications Given This Visit Future Orders ?No future orders Vital Signs Height 150 cm Weight 68.2 kg BMI 30.31 kg/m2 Blood Pressure 139 mm Hg/70 mm Hg Temperature Pulse Rate 69 bpm Respiratory Rate 02 Sat Mode of Delivery 99 %/ You can now view a summary of your hospital visit from the comfort of your home through a free online portal called [employer]. [employer] is a website that allows you to securely view your medical information including discharge summary, medications and follow-up visits. ??You can alsosend a secure electronic message to your doctor???s office to request appointments, renew medications or just ask a question. You can enroll at [email or web address] or register during your next office [...] primary care provider, you may find a [facility] provider by calling [facility] at [phone]. [facility], in keeping with [facility] guidance, no longer requires face masks for staff, patientsor visitors in most situations. Similar to time spent indoors at other locations, there is the chance that you were exposed to respiratory viruses during your time with us (such as flu or COVID-19).? If you develop symptoms concerning for a viral respiratory infection, please seek testing (and treatment if indicated) from your medical provider or home test kit. For information about the plan of care [...] Personnel Name: Raza BARAHONA, Natalia Gonzales Position: [facility] PCO Associate Professional Member Role: PCP Address: Address: [address] [place] [address]- Care Team Related Persons Name: ALLEN KILPATRICK Address: [place] [address] Name: VIET KILPATRICK
--- OUTSIDE RECORDS SUMMARY | 2024-06-24 13:09 | XMS_ITS | Continuity of Care Document ---
Author Organization [facility] Rip lt Address [address] [place] [address]- Care Team Providers Care Consultant Intern Name Role Phone Raza BARAHONA, Natalia Gonzales Primary Care Physician [phone] Encounter [facility] Date(s): 08/27/22 - 09/26/22 [facility] Adult [address] [place] [address]- Allergies, Adverse Reactions, Alerts No Known Allergies [...] pneumococcal 13-valent vaccine 10/09/16 Given 1Result Comment: [facility]-[id number] 2Admin Note: declined Medications amLODIPine 2.5 mg oral tablet 2.5 mg, 1, tablet, By Mouth, Daily, replace 5mg, # 30 tablet, Refills 0, Tot. Refills 0, Maintenance, 09/15/22 9:11:00 EST, Route to Pharmacy Electronically, [facility]/pharmacy #[id number], Partial fill upon patient request if the [...] Maintenance,09/15/22 9:10:00 EST, Route to Pharmacy Electronically, [facility]/pharmacy #[id number], 150, cm, 09/15/22 8:51:00 EST, Height [...] Team Personnel Name: Natalia Person NP Position: S PCO Associate Professional Member Role: PCP Address: Address: [address] [place] [address]- Care Team Related Persons Name: ALLEN KILPATRICK Address: [place] [address] Name: VIET KILPATRICK
--- OUTSIDE RECORDS SUMMARY | 2024-06-24 13:09 | XMS_ITS | Continuity of Care Document ---
Author Organization [facility] Rip lt Address [address] [place] [address]- Care Team Providers Care Towboat Engineer Name Role Phone Raza BARAHONA, Natalia Gonzales Primary Care Physician Encounter [facility] Date(s): 10/27/22 - 11/26/22 [facility] Adult [address] [place] [address]- Allergies, Adverse Reactions, Alerts No Known Allergies [...] pneumococcal 13-valent vaccine 10/09/16 Given 1Result Comment: [facility]-[id number] 2Admin Note: declined Medications amLODIPine 2.5 mg oral tablet 1 tablet, By Mouth, Daily, # 30 tablet, 0 Refills, Maintenance, 10/13/22 14:43:00 EDT, [facility], 150, cm, 10/07/22 7:59:00 EST, Height Start Date: 10/13/22 Status: Ordered aspirin 81 mg oral delayed release tablet 81 mg, 1, tablet, By Mouth, Daily, # 30 tablet, Refills 0, Maintenance, 12/24/16 9:31:57 Start Date: 12/24/16 Status: Ordered docusate sodium 100 mg oral capsule 1 capsule = 100 mg, By Mouth, 2 times a day, # 60 capsule, 1 Refills, Maintenance, 10/07/22 7:43:00EST, [facility]/pharmacy #0693, Partial fill upon patient request [...] Gm, 6 Refills, Maintenance, 10/07/22 7:43:00 EST, [facility]/pharmacy #0693, 150, cm, 10/07/22 7:14:00 EST, Height Start Date: 10/07/22 Status: Ordered gabapentin 100 mg oral capsule 200 mg, 2, capsule, By Mouth, 3 times a day, # 180 capsule, Refills 1, Tot. Refills 1, Maintenance,09/15/22 9:10:00 EST, Route to Pharmacy Electronically, [facility]/pharmacy #0693, 150, cm, 09/15/22 8:51:00 EST, Height [...] Associate Professional Member Role: PCP Address: Address: [address] [place] [address]- Care Team Related Persons Name: ALLEN KILPATRICK Address: [place] [address] Name: VIET KILPATRICK
--- OUTSIDE RECORDS SUMMARY | 2024-06-24 13:09 | XMS_ITS | Continuity of Care Document ---
Author Organization [facility] Rip lt Address [address] [place] [address]- Care Team Providers Care Mechanical Adjuster Name Role Phone Raza BARAHONA, Natalia Gonzales Primary Care Physician Encounter [facility] Date(s): 09/28/23 - 10/28/23 [facility] Adult [address] [place] [address]- Allergies, Adverse Reactions, Alerts No Known Allergies [...] pneumococcal 13-valent vaccine 10/09/16 Given 1Result Comment: [facility]-[id number] 2Admin Note: declined Medications amLODIPine 5 mg oral tablet 1 tablet, By Mouth, Daily, # 90 tablet, 1 Refills, Maintenance, 10/03/23 10:47:00 EST, [facility] 00[facility], 150, cm, 09/17/23 10:16:00 EST, Height, 67.6, kg, 01/30/23 14:53:00 EDT, Dry Weight Start Date: 10/03/23 Status: Ordered aspirin 81 mg oral delayed [...] Maintenance,08/13/23 8:04:00 EST, Route to Pharmacy Electronically, [facility]/pharmacy #[id number], 150, cm, 08/13/23 7:50:00 EST, Height, [...] Active Type II diabetes mellitus Confirmed Active Social History Social History Type Response Smoking Status Never smoker entered on: 10/09/16 Sex Patient Care team information Care Team Personnel Name: Raza BARAHONA, Natalia Gonzales Position: S PCO Associate Professional Member Role: PCP Address: Address: [address] [place] [address]- Care Team Related Persons Name: ALLEN KILPATRICK Address: [place] [address] Name: VIET KILPATRICK
--- OUTSIDE RECORDS SUMMARY | 2024-06-24 13:10 | XMS_ITS | Continuity of Care Document ---
Author Organization [facility] Rip lt Address [address] [place] [address]- Care Team Providers Care Sisal Operator Name Role Phone Raza BARAHONA, Natalia Gonzales Primary Care Physician [phone] Encounter [facility] Date(s): 09/22/23 - 10/22/23 [facility] Adult [address] [place] [address]- Allergies, Adverse Reactions, Alerts No Known Allergies [...] pneumococcal 13-valent vaccine 10/09/16 Given 1Result Comment: [id number] 2Admin Note: declined Medications amLODIPine 5 mg oral tablet 1 tablet, By Mouth, Daily, # 90 tablet, 1 Refills, Maintenance, 10/03/23 10:47:00 EST, [facility], 150, cm, 09/17/23 10:16:00 EST, Height, 67.6, [...] Maintenance,08/13/23 8:04:00 EST, Route to Pharmacy Electronically, [facility]/pharmacy #[id number], 150, cm, 08/13/23 7:50:00 EST, Height, [...] Professional Member Role: PCP Address: Address: [address] [place] [address]- Care Team Related Persons Name: ALLEN KILPATRICK Address: [place] [address] Name: VIET KILPATRICK
--- OUTSIDE RECORDS SUMMARY | 2024-06-24 13:10 | XMS_ITS | Continuity of Care Document ---
Author Organization [facility] Ivan Rip lt Address [address] [place] [address]- Care Team Providers Care Policy Checker Name Role Phone Raza BARAHONA, Natalia Gonzales Primary Care Physician [phone] Encounter [facility] Date(s): 09/12/19 - 09/19/19 [facility] Adult [address] [place] [address]- [facility] Encounter Diagnosis Benign hypertension(Discharge Diagnosis) - 09/12/19 Trapezius muscle spasm(Discharge Diagnosis) - 09/12/19 Attending Physician: Raza BARAHONA, Natalia Gonzales Referring Physician: Harper BANEGAS, Navneet Colrey Allergies, Adverse Reactions, Alerts Substance Reaction Severity Status NKA Active Immunizations Given and Recorded Vaccine Date Status Refusal Reason influenza virus vaccine, inactivated 1 06/01/19 Gi ralph influenza virus vaccine, inactivated 05/25/18 Hayden rded Diphtheria/Tet/Pertussis, Acel (oldterm) 2 03/05/17 Given pneumococcal 13-valent vaccine 10/09/16 Given 1Result Comment: [facility]-[id number] 2Admin Note: declined Medications amLODIPine 10 mg oral tablet 10 mg, 1, tablet, By Mouth, Daily, # 90 tablet, Refills 1, Tot. Refills 1, Maintenance, 04/25/19 11:26:15 EDT, Route to Pharmacy Electronically, [id number], [facility] Start Date: 04/25/19 Status: Ordered aspirin 81 mg oral delayed [...] Gm, 6 Refills, Maintenance, 09/12/19 16:11:00 EST, [email or web address], 150, cm, 09/12/19 11:05:00 EST, Height Start Date: 09/12/19 Status: Ordered gabapentin 100 mg oral capsule 200 mg, 2, capsule, By Mouth, 3 times a day, # 180 capsule, Refills 1, Tot. Refills 1, Maintenance,09/12/19 11:00:00 EST, Route to Pharmacy Electronically, [facility], 150, cm, 09/12/19 10:43:00 EST, Height Start Date: 09/12/19 Status: Ordered hydrochlorothiazide-lisinopril 25 mg-20 mg oral tablet 1 tablet, By Mouth, Daily, # 90 tablet, 1 Refills, Maintenance, 03/17/19 15:07:22 EDT, Tablet, 1 tablet By Mouth Daily Start Date: 03/17/19 Status: Ordered tiZANidine 2 mg oral tablet See Instructions, PRN, take 1-2 tablets By Mouth Every 8 hours, # 30 tablet, Refills 0, Tot. Refills 0, Maintenance, Pain , Moderate, 08/23/19 15:28:00 EST, Instructions Replace Required Details, Route to Pharmacy Electronically, [email or web address],... Start Date: 08/23/19 Status: Ordered Problem List Condition Effective Dates Status Health Status Inform ant Arthritis(Confirmed) Active Benign hypertension(Confirmed) Active Chronic lower back pain(Confirmed) Active Constipation(Confirmed) Active Gout(Confirmed) Active Hyperglycemia(Confirmed) Active Osteopenia(Confirmed) Active Paresthesia(Confirmed) Active Diagnosis Diagnosis Type Effective Dates Health Status Clinical Service Informant Benign hypertension Discharge Diagnosis 09/12/19 Trapezius muscle spasm Discharge Diagnosis 09/12/19 Vital Signs Most recent to oldest [Reference Range]: 1 2 Height 150 cm (09/12/19 11:05 AM) 150 cm (09/12/19 10:43 AM) Weight 67.3 kg (09/12/19 10:43 AM) Oxygen Saturation [94-100 %] 98 % (09/12/19 10:43 AM) Pulse Rate [55-90 bpm] 72 bpm (09/12/19 10:43 AM) Body Mass Index [18.5-24.99] 29.91 *H* (09/12/19 10:43 AM) Blood Pressure [90-138/55-84 mm Hg] 139/ 62mm Hg *H* (09/12/19 11:05 AM) 156/62mm Hg *H* (09/12/19 10:43 AM) Temperature [96.8-100.4 DegF] 98.0 DegF (09/12/19 10:43 AM) Blood pressure sites Arm, left (09/12/19 10:43 AM) Temperature Route Oral (09/12/19 10:43 AM) Social History Social History Type Response Smoking Status Never smoker entered on: 10/09/16 Sex
--- OUTSIDE RECORDS SUMMARY | 2024-06-24 13:10 | XMS_ITS | Continuity of Care Document ---
Author Organization [facility] Rip lt Address [address] [place] [address]- Care Team Providers Care Chauffeur Name Role Phone Raza BARAHONA, Natalia Gonzales Primary Care Physician [phone] [place] [facility] [place] 03/20/23 [place] 04/19/23 [facility] Adult [address] [place] [address]- Allergies, Adverse Reactions, Alerts No Known Allergies [...] pneumococcal 13-valent vaccine 10/09/16 Given 1Result Comment: [facility]-[id number] 2Admin Note: declined Medications amLODIPine 2.5 mg oral tablet 1 tablet, By Mouth, Daily, # 30 tablet, 3 Refills, Maintenance, 03/20/23 15:47:00 EDT, [id number], 150, cm, 11/14/22 15:16:00 EDT, Height, 67.6, kg, 01/30/23 14:53:00 EDT, Dry Weight Start Date: 03/20/23 Status: Ordered aspirin 81 mg oral delayed release tablet 81 mg, 1, tablet, By Mouth, Daily, # 30 tablet, Refills 0, Maintenance, 12/24/16 9:31:57 Start Date: 12/24/16 Status: Ordered docusate sodium 100 mg oral capsule 1 capsule = 100 mg, By Mouth, 2 times a day, # 60 capsule, 1 Refills, Maintenance, 10/07/22 7:43:00EST, [facility]/pharmacy #[id number], Partial fill upon patient request [...] Gm, 6 Refills, Maintenance, 10/07/22 7:43:00 EST, [facility]/pharmacy #[id number], 150, cm, 10/07/22 7:14:00 EST, Height Start Date: 10/07/22 Status: Ordered Estradiol Cream 0.012% Estradiol Cream 0.012%, See Instructions, # 42.5 Gm, Refills 5, Tot. Refills 5, Maintenance, Apply 1 fingertip worth amouth to vagina at bedtime nightly for 2 weeks, then twice wekly. 90 days, 01/30/23 15:25:00 EDT, please dispense compounded med; w... Start Date: 01/30/23 Status: Ordered gabapentin 100 mg oral capsule 200 mg, 2, capsule, By Mouth, 3 times a day, # 180 capsule, Refills 1, Tot. Refills 1, Maintenance,09/15/22 9:10:00 EST, Route to Pharmacy Electronically, [facility]/pharmacy #[id number], 150, cm, 09/15/22 8:51:00 EST, [...] Personnel Name: Raza BARAHONA, Natalia Gonzales Position: [facility] PCO Associate Professional Member Role: PCP Address: Address: [address] [place] [address]- Care Team Related Persons Name: ALLEN KILPATRICK Address: [place] [address] Name: VIET KILPATRICK
--- OUTSIDE RECORDS SUMMARY | 2024-06-24 13:10 | XMS_ITS | Continuity of Care Document ---
Author Organization [facility] Address [address] [place] [address]- Care Team Providers Care Homicide Squad Sergeant Name Role Phone Raza BARAHONA, Natalia Gonzales Primary Care Physician [phone] [place] [facility] Date(s): 10/08/22 - 12/16/[address] [address]- Encounter Diagnosis Low back pain, unspecified(Final) - Discharge Disposition: A-D/C Home Attending Physician: Raza BARAHONA, Natalia Gonzales Admitting Physician: Raza BARAHONA, Natalia Gonzales Referring Physician: Raza BARAHONA, Natalia Gonzales Allergies, [...] pneumococcal 13-valent vaccine 10/09/16 Given 1Result Comment: [facility]-[id number] 2Admin Note: declined Medications amLODIPine 2.5 mg oral tablet 1 tablet, By Mouth, Daily, # 30 tablet, 0 Refills, Maintenance, 10/13/22 14:43:00 EDT, [id number], 150, cm, 10/07/22 7:59:00 EST, Height Start Date: 10/13/22 Status: Ordered aspirin 81 mg oral delayed release tablet 81 mg, 1, tablet, By Mouth, Daily, # 30 tablet, Refills 0, Maintenance, 12/24/16 9:31:57 Start Date: 12/24/16 Status: Ordered docusate sodium 100 mg oral capsule 1 capsule = 100 mg, By Mouth, 2 times a day, # 60 capsule, 1 Refills, Maintenance, 10/07/22 7:43:00EST, [facility]/pharmacy #[id number], Partial fill upon patient request [...] Gm, 6 Refills, Maintenance, 10/07/22 7:43:00 EST, [facility]/pharmacy #[id number], 150, cm, 10/07/22 7:14:00 EST, Height Start Date: 10/07/22 Status: Ordered gabapentin 100 mg oral capsule 200 mg, 2, capsule, By Mouth, 3 times a day, # 180 capsule, Refills 1, Tot. Refills 1, Maintenance,09/15/22 9:10:00 EST, Route to Pharmacy Electronically, [facility]/pharmacy #[id number], 150, cm, 09/15/22 8:51:00 EST, [...] Associate Professional Member Role: PCP Address: Address: [address] [place] [address]- [place] Care Team Related Persons Name: ALLEN KILPATRICK Address: [place] [address] Name: VIET KILPATRICK
--- OUTSIDE RECORDS SUMMARY | 2024-06-24 13:10 | XMS_ITS | Continuity of Care Document ---
Author Organization [facility] Rip lt Address [address] [place] [address]- Care Team Providers Care Service Line Coordinator Name Role Phone Raza BARAHONA, Natalia Gonzales Primary Care Physician [phone] Encounter [facility] [place] Date(s): 04/28/22 - 06/06/22 [facility] Adult [address] [place] [address]- Attending Physician: Raza BARAHONA, Natalia Gonzales Referring [...] 1Result Comment: [facility]-[id number] 2Admin Note: declined Medications amlodipine-benazepril 5 mg-40 mg oral capsule 1 capsule, By Mouth, Daily, # 30 capsule, 0 Refills, Maintenance, 04/28/22 13:29:00 EDT, Capsule, [id number], Partial fill upon patient request if the prescription is for a schedule II opioiddrug., 1 capsule By Mouth Daily, 150, cm, 04/28/22... Start Date: 04/28/22 Status: Ordered aspirin 81 mg oral delayed [...] 05/01/20 9:36:00 EDT, Route to Pharmacy Electronically, [facility], 150, cm, 05/01/20 9:15:00 EDT, Height Start Date: 05/01/20 Stop Date: 05/31/20 Status: Ordered estradiol 0.1 mg/g vaginal cream See Instructions, 2 gm daily at bedtime for 2 weeks then reduce to 1gm daily at bedtime. then 1 gm 2 times a week, # 42.5 Gm, 6 Refills, Maintenance, 09/12/19 16:11:00 EST, [facility] # [facility], 150, cm, 09/12/19 11:05:00 EST, Height Start Date: 09/12/19 Status: Ordered famotidine 20 mg oral tablet 20 mg, 1, tablet, By Mouth, 2 times a day, # 60 tablet, Refills 3, Tot. Refills 3, Maintenance, 05/01/20 9:36:00 EDT, Route to Pharmacy Electronically, [facility], 150, cm, 05/01/20 9:15:00 EDT, Height Start Date: 05/01/20 Status: Ordered gabapentin 100 mg oral capsule 200 mg, 2, capsule, By Mouth, 3 times a day, # 180 capsule, Refills 1, Tot. Refills 1, Maintenance,01/08/22 10:45:00 EDT, [id number], cm, 01/08/22 10:44:00 EDT, Height Start Date: 01/08/22 Status: Ordered tiZANidine 2 mg oral tablet 4 mg, 2, tablet, By Mouth, 3 times a day, PRN, # 30 tablet, Refills 0, Tot. Refills 0, Maintenance,Pain , Severe, 06/02/22 14:44:00 EDT, Route to Pharmacy Electronically, [facility]/pharmacy #[id number], Partialfill upon patient request if the prescription is fo... Start Date: 06/02/22 Status: Ordered tiZANidine 2 mg oral tablet See Instructions, PRN, take 1-2 tablets By Mouth Every 8 hours, # 30 tablet, Refills 0, Tot. Refills 0, Maintenance, Pain , Moderate, 08/23/19 15:28:00 EST, Instructions Replace Required Details, Route to Pharmacy Electronically, [facility] # [facility],... Start Date: 08/23/19 Status: [...] on: 10/09/16 Sex Patient Care team information Personnel Name: Raza BARAHONA, Natalia Gonzales Address: Address: [address] [place] [address]
--- OUTSIDE RECORDS SUMMARY | 2024-06-24 13:10 | XMS_ITS | Continuity of Care Document ---
Author Organization [facility] Rip lt Address [address] [place] [address]- Care Team Providers Care Pulp Drier Firer Name Role Phone Raza BARAHONA, Natalia Gonzales Primary Care Physician En[place] [facility] [place] Date(s): 11/14/22 - 12/14/22 [facility] Adult [address] [place] [address]- Attending Physician: Admtr, Ar8 Admitting Physician: Admtr, Ar8 Referring Physician: Admtr, [...] vaccine 10/09/16 Given 1Result Comment: [facility]-[id number] 2Admin Note: declined Medications amLODIPine 2.5 mg oral tablet 1 tablet, By Mouth, Daily, # 30 tablet, 0 Refills, Maintenance, 10/13/22 14:43:00 EDT, [id number], 150, cm, 10/07/22 7:59:00 EST, Height Start [...] capsule, 1 Refills, Maintenance, 10/07/22 7:43:00EST, [facility]/pharmacy #[id number], Partial fill upon patient request if [...] 6 Refills, Maintenance, 10/07/22 7:43:00 EST, [facility]/pharmacy #[id number], 150, cm, 10/07/22 7:14:00 EST, Height Start Date: 10/07/22 Status: Ordered gabapentin 100 mg oral capsule 200 mg, 2, capsule, By Mouth, 3 times a day, # 180 capsule, Refills 1, Tot. Refills 1, Maintenance,09/15/22 9:10:00 EST, Route to Pharmacy Electronically, [facility]/pharmacy #[id number], 150, cm, 09/15/22 8:51:00 EST, Height [...] smoker entered on: 10/09/16 Sex EKG study * Event Display: EKG Authored Date: Cardiology * Event Display: Non Cardiovascular Results Authored Date: Laboratory * Event Display: Non Lab Results Authored Date: * Event Display: Non BH Lab Results Authored Date: Patient Care team information Care Team Personnel Name: Raza BARAHONA, Natalia Gonzales Position: [facility]O Associate Professional Member Role: PCP Address: Address: [address] [place] [address]- Care Team Related Persons Name: ALLEN KILPATRICK Address: [place] [address] Name: VIET KILPATRICK
--- OUTSIDE RECORDS SUMMARY | 2024-06-24 13:10 | XMS_ITS | Continuity of Care Document ---
Author Organization [facility] Ivan Rip lt Address [address] [place] [address]- Care Team Providers Care Ceiling Cleaner Name Role Phone Raza BARAHONA, Natalia Gonzales Primary Care Physician [place] [facility] [place] 06/[place]/23 - 07/06/23 [facility] Adult [address] [place] [address]- Attending Physician: Raza BARAHONA, Natalia Gonzales Referring [...] pneumococcal 13-valent vaccine 10/09/16 Given 1Result Comment: [facility]-[id number] 2Admin Note: declined Medications amLODIPine 2.5 mg [...] 60 capsule, 1 Refills, Maintenance, 10/07/22 7:43:00EST, [facility]/pharmacy #[id number], Partial fill upon patient [...] Gm, 6 Refills, Maintenance, 10/07/22 7:43:00 EST, [facility]/pharmacy #[id number], 150, cm, 10/07/22 7:14:00 EST, Height [...] Maintenance,09/15/22 9:10:00 EST, Route to Pharmacy Electronically, [facility]/pharmacy #[id number], 150, cm, 09/15/22 8:51:00 EST, Height Start Date: 09/15/22 Status: Ordered Problem List Condition Confirmation Course Effective Dates Status Health St atus Informant Arthritis Confirmed Active Benign hypertension Confirmed Active Chronic lower back pain Confirmed Active Constipation Confirmed Active Gout Confirmed Active Osteopenia Confirmed Active Paresthesia Confirmed Active Prediabetes Confirmed Active Vital Signs Most recent to oldest [Reference Range]: 1 2 3 Oxygen Saturation [94-100 %] 98 % (06/29/23 11:28 AM) Pulse Rate [55-90 bpm] 64 bpm (06/29/23 11:28 AM) Blood Pressure [90-138/55-84 mm Hg] 192/83mm Hg *H* (06/29/23 11:29 AM) 189/83mm Hg *H* (06/29/23 11:29 AM) 204/76mm Hg *H* (06/29/23 11:28 AM) Mode of Delivery (Oxygen) Room air (06/29/23 11:28 AM) Blood pressure sites Arm, left (06/29/23 11:29 AM) Arm, left (06/29/23 11:29 AM) Arm, left (06/29/23 11:28 AM) Social History Social History Type Response Smoking Status Never smoker entered on: 10/09/16 Sex Patient Care team information Care Team Personnel Name: Raza BARAHONA, Natalia Gonzales Position: [facility] PCO Associate Professional Member Role: PCP Address: Address: [address] [place] [address]- Care Team Related Persons Name: ALLEN KILPATRICK Address: [place] [address] Name: VIET KILPATRICK
--- OUTSIDE RECORDS SUMMARY | 2024-06-24 13:10 | XMS_ITS | Continuity of Care Document ---
Author Organization [facility] Ivan Rip lt Address [address] [place] [address]- Care Team Providers Care Local Company Truck Driver Name Role Phone Raza BARAHONA, Natalia Gonzales Primary Care Physician En[place] [facility] [place] Date(s): 09/02/23 - 10/02/23 [facility] Adult [address] [place] [address]- Allergies, Adverse Reactions, Alerts No Known Allergies [...] pneumococcal 13-valent vaccine 10/09/16 Given 1Result Comment: [facility]-[id number] 2Admin Note: declined Medications amLODIPine 5 mg oral tablet 5 mg, 1, tablet, By Mouth, Daily, # 30 tablet, Refills 2, Tot. Refills 2, Maintenance, 07/08/23 11:53:00 EST, [facility], [id number], Partial fill upon patient request if [...] Maintenance,08/13/23 8:04:00 EST, Route to Pharmacy Electronically, [facility]/pharmacy #[id number], 150, cm, 08/13/23 7:50:00 EST, Height, 67.6, kg, 01/30/23 14:53:00 EDT, Dry... Start Date: 08/13/23 Status: Ordered Macrobid macrocrystals-monohydrate 100 mg oral capsule 1 capsule = 100 mg, By Mouth, 2 times a day, for 7 days, # 14 capsule, 0 Refills, Acute 10/05/23 8:37:00 EST, 09/28/23 8:37:00 EST, Capsule, [facility]/pharmacy #[id number], Partial fill upon patient request if the prescription is for a schedule II opioid drug., 1... Start Date: 09/28/23 Stop Date: 10/05/23 Status: Ordered Problem List Condition Confirmation Course [...] Personnel Name: Raza BARAHONA, Natalia Gonzales Position: [facility] PCO Associate Professional Member Role: PCP Address: Address: [address] [place] [address]- Care Team Related Persons Name: ALLEN KILPATRICK Address: [place] [address] Name: VIET KILPATRICK
--- OUTSIDE RECORDS SUMMARY | 2024-06-24 13:10 | XMS_ITS | Continuity of Care Document ---
Author Organization [facility] Ivan Rip lt Address [address] [place] [address]- Care Team Providers Care Concrete Pipe Machine Operator Name Role Phone Raza BARAHONA, Natalia Gonzales Primary Care Physician Encounter [facility] Date(s): 09/03/23 - 10/03/23 [facility] Adult [address] [place] [address]- Allergies, Adverse Reactions, Alerts No Known Allergies [...] 13-valent vaccine 10/09/16 Given 1Result Comment: [facility]-[id number] 2Admin Note: declined Medications amLODIPine 5 mg oral tablet 1 tablet, By Mouth, Daily, # 90 tablet, 1 Refills, Maintenance, 10/03/23 10:47:00 EST, [id number], 150, cm, 09/17/23 10:16:00 EST, Height, 67.6, [...] Maintenance,08/13/23 8:04:00 EST, Route to Pharmacy Electronically, [facility]/pharmacy #[id number], 150, cm, 08/13/23 7:50:00 EST, Height, 67.6, kg, 01/30/23 14:53:00 EDT, Dry... Start Date: 08/13/23 Status: Ordered Macrobid macrocrystals-monohydrate 100 mg oral capsule 1 capsule = 100 mg, By Mouth, 2 times a day, for 7 days, # 14 capsule, 0 Refills, Acute 10/05/23 8:37:00 EST, 09/28/23 8:37:00 EST, Capsule, [facility]/pharmacy #[id number], Partial fill upon patient request if [...] Personnel Name: Raza BARAHONA, Natalia Gonzales Position: [facility] Associate Professional Member Role: PCP Address: Address: [address] [place] [address]- Care Team Related Persons Name: ALLEN KILPATRICK Address: [place] [address] Name: VIET KILPATRICK
--- OUTSIDE RECORDS SUMMARY | 2024-06-24 13:10 | XMS_ITS | Continuity of Care Document ---
Author Organization [facility] Rip lt Address [address] [place] [address]- Care Team Providers Care Roll Coating Machine Operator Name Role Phone Raza BARAHONA, Natalia Gonzales Primary Care Physician [phone] Encounter [facility] [place] Date(s): 01/08/22 - 01/15/22 [facility] Adult [address] [place] [address]- Encounter Diagnosis Benign hypertension(Discharge Diagnosis) - 01/08/22 Arm pain, left(Discharge Diagnosis) - 01/08/22 Hyperglycemia(Discharge Diagnosis) - 01/08/22 Attending Physician: Raza BARAHONA, Natalia Gonzales Referring Physician: Harper BANEGAS, Navneet Corley Allergies, Adverse Reactions, Alerts No Known Allergies Immunizations Given and Recorded Vaccine Date Status Refusal Reason influenza virus vaccine, inactivated 05/01/20 Give n influenza virus vaccine, inactivated 1 06/01/19 Gi ralph influenza virus vaccine, inactivated 05/25/18 Hayden rded Diphtheria/Tet/Pertussis, Acel (oldterm) 2 03/05/17 Given pneumococcal 13-valent vaccine 10/09/16 Given 1Result Comment: [facility] [place] 2]-[id number] 2Admin Note: declined Medications aspirin 81 mg oral [...] 05/01/20 9:36:00 EDT, Route to Pharmacy Electronically, [facility], 150, cm, 05/01/20 9:15:00 [...] Maintenance,01/08/22 10:45:00 EDT, [id number], cm, 01/08/22 10:44:00 EDT, Height Start Date: 01/08/22 Status: Ordered hydrochlorothiazide-losartan 25 mg-100 mg oral tablet 1 tablet, By Mouth, Daily, # 30 tablet, 0 Refills, Maintenance, 01/08/22 11:00:00 EDT, [id number] Partial fill upon patient request if the prescription is for a schedule II opioid drug., 1 tablet By Mouth Daily, 150, cm, 01/08/22 10:5... Start Date: 01/08/22 Status: Ordered tiZANidine 2 mg oral tablet See Instructions, PRN, take 1-2 tablets By Mouth Every 8 hours, # 30 tablet, Refills 0, Tot. Refills 0, Maintenance, Pain , Moderate, 08/23/19 15:28:00 EST, Instructions Replace Required Details, Route to Pharmacy Electronically, [facility],... Start Date: 1/21/20 Status: Ordered Problem List Condition Effective Dates Status Health Status Inform ant Arthritis(Confirmed) Active Benign hypertension(Confirmed) Active Chronic lower back pain(Confirmed) Active Constipation(Confirmed) Active Gout(Confirmed) Active Hyperglycemia(Confirmed) Active Osteopenia(Confirmed) Active Paresthesia(Confirmed) Active Diagnosis Diagnosis Type Effective Dates Health Status Clinical Service Informant Benign hypertension Discharge Diagnosis 01/08/22 Arm pain, left Discharge Diagnosis 01/08/22 Hyperglycemia Discharge Diagnosis 01/08/22 Vital Signs Most recent to oldest [Reference Range]: 1 2 3 Height 150 cm (01/08/22 10:58 AM) 150 cm (01/08/22 10:44 AM) 150 cm (01/08/22 10:33 AM) Weight 65.8 kg (01/08/22 10:33 AM) Oxygen Saturation [94-100 %] 98 % (01/08/22 10:33 AM) Pulse Rate [55-90 bpm] 71 bpm (01/08/22 10:33 AM) Body Mass Index [18.5-24.99] 29.24 *H* (01/08/22 10:33 AM) Blood Pressure [90-138/55-84 mm Hg] 150/70mm Hg *H* (01/08/22 10:58 AM) 180/69mm Hg *H* (01/08/22 10:44 AM) 166/75mm Hg *H* (01/08/22 10:33 AM) Temperature [96.8-100.4 DegF] 98.8 DegF (01/08/22 10:33 AM) Blood pressure sites Arm, right (01/08/22 10:44 AM) Arm, right (01/08/22 10:33 AM) Temperature Route Temporal (01/08/22 10:33 AM) Weight Obtained Via Standing scale (01/08/22 10:33 AM) Social History Social History Type Response Smoking Status Never smoker entered on: 10/09/16 Sex
--- OUTSIDE RECORDS SUMMARY | 2024-06-24 13:10 | XMS_ITS | Continuity of Care Document ---
Author Organization [facility] Ivan Rip lt Address [address] [place] [address]- Care Team Providers Care Choir Leader Name Role Phone Raza BRAAHONA, Natalia Gonzales Primary Care Physician [phone] Encounter [facility] Date(s): 11/14/22 - 11/21/22 [facility] Ivan Adult [address] [place] [address]- Encounter Diagnosis Benign hypertension(Discharge Diagnosis) - 11/14/22 Constipation(Discharge Diagnosis) - 11/14/22 Medicare annual wellness visit, subsequent(Discharge Diagnosis) - 11/14/22 Dysuria(Discharge Diagnosis) - 11/14/22 Abdominal pain(Discharge Diagnosis) - 11/14/22 Hand pain(Discharge Diagnosis) - 11/14/22 Attending Physician: Natalia Person NP Referring Physician: [...] 13-valent vaccine 10/09/16 Given 1Result Comment: [facility]-[id number] 2Admin Note: declined Medications amLODIPine 2.5 mg oral tablet 1 tablet, By Mouth, Daily, # 30 tablet, 0 Refills, Maintenance, 10/13/22 14:43:00 EDT, [facility] 400[facility], 150, cm, 10/07/22 7:59:00 EST, Height Start Date: 10/13/22 Status: Ordered aspirin 81 mg oral delayed release tablet 81 mg, 1, tablet, By Mouth, Daily, # 30 tablet, Refills 0, Maintenance, 12/24/16 9:31:57 Start Date: 12/24/16 Status: Ordered docusate sodium 100 mg oral capsule 1 capsule = 100 mg, By Mouth, 2 times a day, # 60 capsule, 1 Refills, Maintenance, 10/07/22 7:43:00EST, [facility]/pharmacy #[id number], Partial fill upon patient request [...] Gm, 6 Refills, Maintenance, 10/07/22 7:43:00 EST, [facility]/pharmacy #[id number], 150, cm, 10/07/22 7:14:00 EST, Height Start Date: 10/07/22 Status: Ordered gabapentin 100 mg oral capsule 200 mg, 2, capsule, By Mouth, 3 times a day, # 180 capsule, Refills 1, Tot. Refills 1, Maintenance,09/15/22 9:10:00 EST, Route to Pharmacy Electronically, [facility]/pharmacy #[id number], 150, cm, 09/15/22 8:51:00 EST, [...] Clinical Service Informant Benign hypertension Discharge Diagnosis 4/14/23 Constipation Discharge Diagnosis 11/14/22 Medicare annual wellness visit, subsequent Discharge Diagnosis 11/14/22 Dysuria Discharge Diagnosis 11/14/22 Abdominal pain Discharge Diagnosis 11/14/22 Hand pain Discharge Diagnosis 11/14/22 Vital Signs Most recent to oldest [Reference Range]: 1 2 3 Height 150 cm (11/14/22 1:55 PM) 150 cm (11/14/22 1:35 PM) 150 cm (11/14/22 1:23 PM) Weight 66.9 kg (11/14/22 1:23 PM) Oxygen Saturation [94-100 %] 96 % (11/14/22 1:23 PM) Pulse Rate [55-90 bpm] 87 bpm (11/14/22 1:23 PM) Body Mass Index [18.5-24.99 kg/m2] 29.73 kg/m2 *H* (11/14/22 1:23 PM) Blood Pressure [90-138/55-84 mm Hg] 151/79mm Hg *H* (11/14/22 1:55 PM) 160/81mm Hg *H* (11/14/22 1:35 PM) 155/78mm Hg *H* (11/14/22 1:23 PM) Blood pressure sites Arm, left (11/14/22 1:35 PM) Arm, left (11/14/22 1:23 PM) Weight Obtained Via Standing scale (11/14/22 1:23 PM) Social History Social History Type Response Smoking Status Never smoker entered on: 10/09/16 Sex Patient Care team information Care Team Personnel Name: Raza BARAHONA, Natalia Gonzales Position: S PCO Associate Professional Member Role: PCP Address: Address: [address] [place] [address]- Care Team Related Persons Name: ALLEN KILPATRICK Address: [place] [address] Name: VIET KILPATRICK
--- OUTSIDE RECORDS SUMMARY | 2024-06-24 13:10 | XMS_ITS | Continuity of Care Document ---
Author Organization [facility] Rip lt Address [address] [place] [address]- Care Team Providers Care Copy Chief Name Role Phone Raza BARAHONA, Natalia Gonzales Primary Care Physician [phone] [id number] Date(s[facility] 04/28/22 - 05/05/22 [facility] Adult [address] [place] [address]- Attending Physician: Danyel BARAHONA, Luma Clarke Referring Physician: Harper BANEGAS, Navneet Corley Allergies, Adverse Reactions, Alerts No Known Allergies Immunizations Given and Recorded Vaccine Date Status Refusal Reason influenza virus vaccine, inactivated 05/01/20 Give n influenza virus vaccine, inactivated 1 06/01/19 Gi ralph influenza virus vaccine, inactivated 05/25/18 Hayden rded Diphtheria/Tet/Pertussis, Acel (oldterm) 2 03/05/17 Given pneumococcal 13-valent vaccine 10/09/16 Given 1Result Comment: [facility]-[id number] 2Admin Note: declined Medications amlodipine-benazepril 5 mg-40 mg oral capsule 1 capsule, By Mouth, Daily, # 30 capsule, 0 Refills, Maintenance, 04/28/22 13:29:00 EDT, Capsule, [id number], Partial fill upon patient request if the [...] Maintenance,01/08/22 10:45:00 EDT, Route to Pharmacy Electronically, [facility]/pharmacy #[id number], 150, cm, 01/08/22 10:44:00 EDT, Height Start Date: 01/08/22 Status: Ordered tiZANidine 2 mg oral tablet See Instructions, PRN, take 1-2 tablets By Mouth Every 8 hours, # 30 tablet, Refills 0, Tot. Refills 0, Maintenance, Pain , Moderate, 08/23/19 15:28:00 EST, Instructions Replace Required Details, Route to Pharmacy Electronically, [facility],... Start Date: 08/23/19 Status: Ordered tiZANidine 2 mg oral tablet 2 mg, 1, tablet, By Mouth, 3 times a day, PRN, # 30 tablet, Refills 0, Tot. Refills 0, Maintenance,Pain , Severe, 04/28/22 13:30:00 EDT, Route to Pharmacy Electronically, [facility]/pharmacy #[id number], Partialfill upon patient request if the prescription is fo... Start Date: 04/28/22 Status: Ordered Problem List Condition Confirmation Course Effective Dates Status Health St atus Informant Arthritis Confirmed Active Benign hypertension Confirmed Active Chronic lower back pain Confirmed Active Constipation Confirmed Active Gout Confirmed Active Obese class I Confirmed Active Osteopenia Confirmed Active Paresthesia Confirmed Active Prediabetes Confirmed Active Vital Signs Most recent to oldest [Reference Range]: 1 2 3 Height 150 cm (04/28/22 1:09 PM) 150 cm (04/28/22 1:09 PM) 150 cm (04/28/22 12:57 PM) Weight 67.5 kg (04/28/22 12:57 PM) Oxygen Saturation [94-100 %] 98 % (04/28/22 12:57 PM) Body Mass Index [18.5-24.99 kg/m2] 30 kg/m2 *>HHI* (04/28/22 12:57 PM) Blood Pressure [90-138/55-84 mm Hg] 178/65mm Hg *H* (04/28/22 1:09 PM) 183/66mm Hg *H* (04/28/22 1:09 PM) 187/66mm Hg *H* (04/28/22 12:57 PM) Blood pressure sites Arm, left (04/28/22 12:57 PM) Weight Obtained Via Standing scale (04/28/22 12:57 PM) Social History Social History Type Response Smoking Status Never smoker entered on: 10/09/16 Sex Patient Care team information Personnel Name: Raza BARAHONA, Natalia Gonzales Address: Address: [address] [place] [id number]
--- OUTSIDE RECORDS SUMMARY | 2024-06-24 13:10 | XMS_ITS | Continuity of Care Document ---
Author Organization [facility] Address [address], [address] [place] [address]- Care Team Providers Care Dough Braker Name Role Phone Raza BARAHONA, Natalia Gonzales Primary Care Physician [phone] En[place] [facility] [place] Date(s): 01/30/23 - 03/01/23 [facility] [address] [place], [place] [address] Attending Physician: Gonzalez Farrell Admitting Physician: AdmGonzalez [...] vaccine 10/09/16 Given 1Result Comment: [facility]-[id number] 2Admin Note: declined Medications amLODIPine 2.5 mg oral tablet 1 tablet, By Mouth, Daily, # 30 tablet, 0 Refills, Maintenance, 10/13/22 14:43:00 EDT, [facility] ST[facility] 49563, 150, cm, 10/07/22 7:59:00 EST, Height Start Date: 10/13/22 Status: Ordered aspirin 81 mg oral delayed release tablet 81 mg, 1, tablet, By Mouth, Daily, # 30 tablet, Refills 0, Maintenance, 12/24/16 9:31:57 Start Date: 12/24/16 Status: Ordered docusate sodium 100 mg oral capsule 1 capsule = 100 mg, By Mouth, 2 times a day, # 60 capsule, 1 Refills, Maintenance, 10/07/22 7:43:00EST, [facility]/pharmacy #[id number], Partial fill upon patient request if [...] Gm, 6 Refills, Maintenance, 10/07/22 7:43:00 EST, [facility]/pharmacy #[id number], 150, cm, 10/07/22 7:14:00 EST, Height [...] Maintenance,09/15/22 9:10:00 EST, Route to Pharmacy Electronically, [facility]/pharmacy #[id number], 150, cm, 09/15/22 8:51:00 EST, Height [...] Associate Professional Member Role: PCP Address: Address: [address] [place] [address]- Care Team Related Persons Name: ALLEN KILPATRICK Address: [place] [address] Name: VIET KILPATRICK
--- OUTSIDE RECORDS SUMMARY | 2024-06-24 13:10 | XMS_ITS | Continuity of Care Document ---
Author Organization [facility] Rip lt Address [address] [place] [address]- Care Team Providers Care Underliner Name Role Phone Raza BARAHONA, Natalia Gonzales Primary Care Physician [phone] [facility] Date(s): 12/25/23 - 01/24/24 [facility] Adult [address] [place] [address]- Allergies, Adverse Reactions, Alerts No Known Allergies [...] 10/09/16 Given 1Result Comment: [facility]-[id number] 2Admin Note: declined Medications amLODIPine 5 mg oral tablet 1 tablet, By Mouth, Daily, # 90 tablet, 1 Refills, Maintenance, 10/03/23 10:47:00 EST, [facility], 150, cm, 09/17/23 10:16:00 EST, Height, 67.6, [...] Maintenance,08/13/23 8:04:00 EST, Route to Pharmacy Electronically, [facility]/pharmacy #[id number], 150, cm, 08/13/23 7:50:00 EST, [...] Personnel Name: Raza BARAHONA, Natalia Gonzales Position: [facility] PCO Associate Professional Member Role: PCP Address: Address: [address] [place] [address]- Care Team Related Persons Name: ALLEN KILPATRICK Address: [place] [address] Name: VIET KILPATRICK
--- OUTSIDE RECORDS SUMMARY | 2024-06-24 13:11 | XMS_ITS | Continuity of Care Document ---
Author Organization [facility] Ivan Rip lt Address [address] [place] [address]- Care Team Providers Care Brick Shader Name Role Phone Raza BARAHONA, Natalia Gonzales Primary Care Physician Encounter [facility] Date(s): 10/13/22 - 11/12/22 [facility] Ivan Adult [address] [place] [address]- Allergies, Adverse Reactions, Alerts No Known Allergies [...] vaccine 10/09/16 Given 1Result Comment: [facility]-[id number] 2Admin Note: declined Medications amLODIPine 2.5 mg oral tablet 1 tablet, By Mouth, Daily, # 30 tablet, 0 Refills, Maintenance, 10/13/22 14:43:00 EDT, [facility], 150, cm, 10/07/22 7:59:00 EST, Height Start [...] Associate Professional Member Role: PCP Address: Address: [address] [place] [address]- Care Team Related Persons Name: ALLEN KILPATRICK Address: [place] [address] Name: VIET KILPATRICK
--- OUTSIDE RECORDS SUMMARY | 2024-06-24 13:11 | XMS_ITS | Continuity of Care Document ---
Author Organization [facility] Rip lt Address [address] [place] [address]- Care Team Providers Care Crm Dynamics Developer Name Role Phone Raza BARAHONA, Natalia Gonzales Primary Care Physician [phone] [facility] Date(s): 12/18/20 - 12/25/20 [facility] Adult [address] [place] [address]- Encounter Diagnosis Benign hypertension(Discharge Diagnosis) - 12/18/20 Neck pain(Discharge Diagnosis) - 12/18/20 Wrist pain(Discharge Diagnosis) - 12/18/20 Dysuria(Discharge Diagnosis) - 12/18/20 Attending Physician: Raza BARAHONA, Natalia Gonzales Referring [...] 1Result Comment: [facility]-[id number] 2Admin Note: declined Medications amLODIPine 10 mg oral tablet 10 mg, 1, tablet, By Mouth, Daily, # 90 tablet, Refills 0, Tot. Refills 0, Maintenance, 10/18/20 13:14:00 EDT, Route to Pharmacy Electronically, [facility] #22, Office visit needed for further refills., 150, cm, 05/01/20 9:47:00 EDT, Height Start Date: 10/18/20 Status: Ordered aspirin 81 mg oral delayed [...] 180 capsule, Refills 1, Tot. Refills 1, Maintenance,12/20/20 11:24:00 EDT, Route to Pharmacy Electronically, [facility] # 50, 150, cm, 12/18/20 15:01:00 EDT, Height Start Date: 12/20/20 Status: Ordered hydrochlorothiazide-lisinopril 25 mg-20 mg oral tablet 1 tablet, By Mouth, Daily, # 90 tablet, 1 Refills, Maintenance, 07/19/20 13:21:00 EST, Tablet, [facility] # 50, 1 tablet By Mouth Daily, 150, cm, 05/01/20 9:47:00 EDT, Height Start Date: 07/19/20 Status: Ordered tiZANidine 2 mg oral tablet See Instructions, PRN, take 1-2 tablets By Mouth Every 8 hours, # 30 tablet, Refills 0, Tot. Refills 0, Maintenance, Pain , Moderate, 08/23/19 15:28:00 EST, Instructions Replace Required Details, Route to Pharmacy Electronically, [facility] # [facility],... Start Date: 08/23/19 Status: Ordered Problem List Condition Effective Dates Status Health Status Inform ant Arthritis(Confirmed) Active Benign hypertension(Confirmed) Active Chronic lower back pain(Confirmed) Active Constipation(Confirmed) Active Gout(Confirmed) Active Hyperglycemia(Confirmed) Active Osteopenia(Confirmed) Active Paresthesia(Confirmed) Active Diagnosis Diagnosis Type Effective Dates Health Status Clinical Service Informant Benign hypertension Discharge Diagnosis 12/18/20 Neck pain Discharge Diagnosis 12/18/20 Wrist pain Discharge Diagnosis 12/18/20 Dysuria Discharge Diagnosis 12/18/20 Vital Signs Most recent to oldest [Reference Range]: 1 Height 150 cm (12/18/20 3:01 PM) Weight 71.2 kg (12/18/20 3:01 PM) Oxygen Saturation [94-100 %] 97 % (12/18/20 3:01 PM) Pulse Rate [55-90 bpm] 98 bpm *H* (12/18/20 3:01 PM) Body Mass Index [18.5-24.99] 31.64 *>HHI* (12/18/20 3:01 PM) Blood Pressure [90-138/55-84 mm Hg] 138/ 70mm Hg (12/18/20 3:01 PM) Temperature [96.8-100.4 DegF] 98.2 DegF (12/18/20 3:01 PM) Mode of Delivery (Oxygen) Room air (12/18/20 3:01 PM) Blood pressure sites Arm, left (12/18/20 3:01 PM) Temperature Route Oral (12/18/20 3:01 PM) Weight Obtained Via Standing scale (12/18/20 3:01 PM) Social History Social History Type Response Smoking Status Never smoker entered on: 10/09/16 Sex
--- OUTSIDE RECORDS SUMMARY | 2024-06-24 13:11 | XMS_ITS | Continuity of Care Document ---
Author Organization [facility] Rip lt Address [address] [place] [address]- Care Team Providers Care Housekeeper [facility] Name Role Phone Raza BARAHONA, Natalia Gonzales Primary Care Physician [place] [facility] 04/17/24 - 05/17/24 [facility] Adult [address] [place] [address]- Allergies, Adverse Reactions, Alerts No Known Allergies [...] 13-valent vaccine 10/09/16 Given 1Result Comment: [facility]-[id number] 2Admin Note: declined Medications amLODIPine 5 mg oral tablet 1 tablet, By Mouth, Daily, # 90 tablet, 1 Refills, Maintenance, 04/18/24 7:38:00 EDT, [facility], 150, cm, 09/17/23 10:16:00 EST, Height, 67.6, kg, 01/30/23 14:53:00 EDT, Dry Weight Start Date: 04/18/24 Status: Ordered aspirin 81 mg oral delayed [...] Maintenance,08/13/23 8:04:00 EST, Route to Pharmacy Electronically, [facility]/pharmacy #[id number], 150, cm, 08/13/23 7:50:00 EST, [...] Personnel Name: Raza BARAHONA, Natalia Gonzales Position: [facility] PCO Associate Professional Member Role: PCP Address: Address: [address] [place] [address]- Care Team Related Persons Name: ALLEN KILPATRICK Address: [place] [address] Name: VIET KILPATRICK
--- OUTSIDE RECORDS SUMMARY | 2024-06-24 13:11 | XMS_ITS | Continuity of Care Document ---
Author Organization [facility] Ivan Rip lt Address [address] [place] [address]- Care Team Providers Care Marketing Planning Manager Name Role Phone Raza BARAHONA, Natalia Gonzales Primary Care Physician [phone] [place] [facility] Date(s): 05/09/24 - 06/08/24 [facility] Adult [address] [place] [address]- Allergies, Adverse Reactions, Alerts No Known Allergies [...] 10/09/16 Given 1Result Comment: [facility]-[id number] 2Admin Note: declined Medications amLODIPine 5 mg oral tablet 1 tablet, By Mouth, Daily, # 90 tablet, 1 Refills, Maintenance, 04/18/24 7:38:00 EDT, [facility], 150, cm, 09/17/23 10:16:00 EST, Height, 67.6, [...] Maintenance,08/13/23 8:04:00 EST, Route to Pharmacy Electronically, [facility]/pharmacy #[id number], 150, cm, 08/13/23 7:50:00 EST, Height, [...] Personnel Name: Raza BARAHONA, Natalia Gonzales Position: [facility] PCO Associate Professional Member Role: PCP Address: Address: [address] [place] [address]- Care Team Related Persons Name: ALLEN KILPATRICK Address: [place] [address] Name: VIET KILPATRICK
--- OUTSIDE RECORDS SUMMARY | 2024-06-24 13:11 | XMS_ITS | Continuity of Care Document ---
Author Organization [facility] Rip lt Address [address] [place] [address]- Care Team Providers Care Senior Systems Administrator Name Role Phone Raza BARAHONA, Natalia Gonzales Primary Care Physician En[place] [facility] [id number] Date(s): 07/08/23 - 07/15/23 [facility] Adult [address] [place] [address]- Encounter Diagnosis Benign hypertension(Discharge Diagnosis) - 07/08/23 Type II diabetes mellitus(Discharge Diagnosis) - 07/08/23 Abdominal pain(Discharge Diagnosis) - 07/10/23 Attending Physician: Raza BARAHONA, Natalia Gonzales Referring [...] 13-valent vaccine 10/09/16 Given 1Result Comment: [facility] 3]-[id number] 2Admin Note: declined Medications amLODIPine 5 mg oral tablet 5 mg, 1, tablet, By Mouth, Daily, # 30 tablet, Refills 2, Tot. Refills 2, Maintenance, 07/08/23 11:53:00 EST, Route to Pharmacy Electronically, [facility]/pharmacy #[id number], Partial fill upon patient [...] Gm, 6 Refills, Maintenance, 10/07/22 7:43:00 EST, [facility]/pharmacy #[id number], 150, cm, 10/07/22 7:14:00 EST, Height Start Date: 10/07/22 Status: Ordered gabapentin 100 mg oral capsule 200 mg, 2, capsule, By Mouth, 3 times a day, # 180 capsule, Refills 1, Tot. Refills 1, Maintenance,09/15/22 9:10:00 EST, Route to Pharmacy Electronically, [facility]/pharmacy #[id number], 150, cm, 09/15/22 8:51:00 EST, Height Start Date: 09/15/22 Status: Ordered Problem List Condition Confirmation Course Effective Dates Status Health at Informant Arthritis Confirmed Active Benign hypertension Confirmed Active Chronic lower back pain Confirmed Active Constipation Confirmed Active Gout Confirmed Active Obese class I Confirmed Active Osteopenia Confirmed Active Paresthesia Confirmed Active Type II diabetes mellitus Confirmed Active Diagnosis Diagnosis Type Effective Dates Health Status Clinical Service Informant Benign hypertension Discharge Diagnosis 07/08/23 Type II diabetes mellitus Discharge Diagnosis 07/08/23 Abdominal pain Discharge Diagnosis 07/10/23 Vital Signs Most recent to oldest [Reference Range]: 1 2 Height 150 cm (07/08/23 11:57 AM) 150 cm (07/08/23 11:29 AM) Weight 68 kg (07/08/23 11:29 AM) Oxygen Saturation [94-100 %] 98 % (07/08/23 11:29 AM) Pulse Rate [55-90 bpm] 69 bpm (07/08/23 11:29 AM) Body Mass Index [18.5-24.99 kg/m2] 30.22 kg/m2 *>HHI* (07/08/23 11:29 AM) Blood Pressure [90-138/55-84 mm Hg] 160/ 78mm Hg *H* (07/08/23 11:57 AM) 165/68mm Hg *H* (07/08/23 11:29 AM) Blood pressure sites Arm, left (07/08/23 11:29 AM) Weight Obtained Via Standing scale (07/08/23 11:29 AM) Social History Social History Type Response Smoking Status Never smoker entered on: 10/09/16 Sex Note * Gisela Law: PERFORM, SIGN, VERIFY Event Display: Patient Education/Instruction Authored Date: [id number] [facility] *BMP So Ivan Cisneros Clinical Summary Name CHEKO KHALIL Age 87 Years 1935 PCP Raza BARAHONA, Natal[facility] Gonzales [id number] Date 07/08/2023 11:25:00 Additional Instructions: Scheduled Appointments?? Future Appointments ?No Future Appointments Scheduled Follow-Up Instructions ?? With: Address: When: Follow up, 1 Month Comments: long Diagnosis Type 2 diabetes mellitus without complications; Essential (primary) hypertension Medications: Please continue your medications until treatment is completed or stopped by your provider. Discuss any questions related to medications with your provider. Medications to Continue Taking That Have Changed [facility]/pharmacy #[id number], [address] [place] [phone], [phone] - Amlodipine (amLODIPine 5 mg oral tablet) 1 tab(s) Oral Daily. Refills: 2. Next Dose: Medications to Continue with No Changes These medications were not printed or sent to your pharmacy Aspirin (aspirin 81 mg oral delayed release tablet) 1 tab(s) Oral Daily. Next Dose: Estradiol Topical (estradiol 0.1 mg/g vaginal cream) 2 gm daily at bedtime for 2 weeks then reduce to 1gm daily at bedtime. then 1 gm 2 times a week. Refills: 6. Next Dose: Gabapentin (gabapentin 100 mg oral capsule) 2 capsule Oral 3 times a day. Refills: 1. Next Dose: No Longer Take the Following Medications Docusate (docusate sodium 100 mg oral capsule) 1 capsule Oral twice a day. Refills: 1. Miscellaneous Rx (Estradiol Cream 0.012%) Apply 1 fingertip worth amouth to vagina at bedtime nightly for 2 weeks, then twice wekly. 90 days. Refills: 5. Allergy Info:?? NKA Medications Given This Visit Future Orders ?Complete Urinalysis/Reflex Culture? Order Date:07/08/23?- Complete on or after?07/08/23 ?CT Abd/Pelvis W/ IV + Oral Contrast? Order Date:07/08/23?- Complete on or after?07/08/23 ?CBC w/ Differential? Order Date:07/08/23?- Complete on or after?07/08/23 Vital Signs Height 150 cm Weight 68 kg BMI 30.22 kg/m2 Blood Pressure 160 mm Hg/78 mm Hg Temperature Pulse Rate 69 bpm Respiratory Rate 02 Sat Mode of Delivery 98 %/ You can now view a summary of your hospital visit from the comfort of your home through a free online portal called [employer]. [employer] is a website that allows you to securely view your medical information including discharge summary, medications and follow-up visits. ??You can alsosend a secure electronic message to your doctor???s office to request appointments, renew medications or just ask a question. You can enroll at [email or web address] or register during your next office [...] primary care provider, you may find a [facility] provider by calling [facility] at [phone]. [facility], in keeping with [facility] guidance, no longer requires face masks for [...] Personnel Name: Raza BARAHONA, Natalia Gonzales Position: [facility] PCO Associate Professional Member Role: PCP Address: Address: [address] [place] [address]- [place] Care Team Related Persons Name: ALLEN KILPATRICK Address: [place] [address] Name: VIET KILPATRICK
--- OUTSIDE RECORDS SUMMARY | 2024-06-24 13:11 | XMS_ITS | Continuity of Care Document ---
Author Organization [facility] [place] Rip lt Address [address] [place] [address]- Care Team Providers Care Dumper Mold Cleaner Name Role Phone Raza BARAHONA, Natalia Gonzales Primary Care Physician [place] [facility] [place] 09/18/23 - 10/18/23 [facility] Ivan Adult [address] [place] [address]- Allergies, Adverse Reactions, Alerts No Known Allergies [...] 10/09/16 Given 1Result Comment: [facility]-[id number] 2Admin Note: declined Medications amLODIPine 5 mg oral tablet 1 tablet, By Mouth, Daily, # 90 tablet, 1 Refills, Maintenance, 10/03/23 10:47:00 EST, [facility] STORE [id number], 150, cm, 09/17/23 10:16:00 EST, Height, 67.6, [...] Maintenance,08/13/23 8:04:00 EST, Route to Pharmacy Electronically, [facility]/pharmacy #[id number], 150, cm, 08/13/23 7:50:00 [...] Professional Member Role: PCP Address: Address: [address] [place] [address]- Care Team Related Persons Name: ALLEN KILPATRICK Address: [place] [address] Name: VIET KILPATRICK
--- OUTSIDE RECORDS SUMMARY | 2024-06-24 13:11 | XMS_ITS | Continuity of Care Document ---
Author Organization [facility] Rip lt Address [address] [place] [address]- Care Team Providers Care Geothermal Electrical Engineer Name Role Phone Raza BARAHONA, Natalia Gonzales Primary Care Physician [phone] Encounter [facility] [place] Date(s): 09/17/23 - 10/17/23 [facility] Adult [address] [place] [address]- Attending Physician: Admtr, Jose8 Admitting Physician: Admtr, [...] 13-valent vaccine 10/09/16 Given 1Result Comment: [facility]-[id number] 2Admin Note: declined Medications amLODIPine 5 mg oral tablet 1 tablet, By Mouth, Daily, # 90 tablet, 1 Refills, Maintenance, 10/03/23 10:47:00 EST, [facility], 150, cm, 09/17/23 10:16:00 EST, Height, 67.6, [...] Maintenance,08/13/23 8:04:00 EST, Route to Pharmacy Electronically, [facility]/pharmacy #[id number], 150, cm, 08/13/23 7:50:00 EST, [...] Authored Date: Cardiology * Event Display: Non BH Cardiovascular Results Authored Date: Laboratory * Event Display: Non BH Lab Results Authored Date: * Event Display: Non BH Lab Results Authored Date: * Event Display: Non BH Lab Results Authored Date: Radiology * Event Display: MRI Spine, Non- Authored Date: * Event Display: CT Scan Abdomen, Non- Authored Date: Patient Care team information Care Team Personnel Name: Raza BARAHONA, Natalia Gonzales Position: S PCO Associate Professional Member Role: PCP Address: Address: [address] [place] [address]- Care Team Related Persons Name: ALLEN KILPATRICK Address: [place] [address] Name: VIET KILPATRICK
--- OUTSIDE RECORDS SUMMARY | 2024-06-24 13:11 | XMS_ITS | Continuity of Care Document ---
Author Organization [facility] Address [address] [place] [address]- Care Team Providers Care Reactor Technician Name Role Phone Raza BARAHONA, Natalia Gonzales Primary Care Physician [place] [facility] [place] 10/16/22 - 11/15/[address] [address] Attending Physician: Gonzalez Farrell Admitting Physician: Admtr, Gonzalez Referring Physician: Admtr, [id number] Allergies, Adverse Reactions, [...] 10/09/16 Given 1Result Comment: [facility]-[id number] 2Admin Note: declined Medications amLODIPine 2.5 mg oral tablet 1 tablet, By Mouth, Daily, # 30 tablet, 0 Refills, Maintenance, 10/13/22 14:43:00 EDT, [facility] STORE 82633, 150, cm, 10/07/22 7:59:00 EST, Height Start Date: 10/13/22 Status: Ordered aspirin 81 mg oral delayed release tablet 81 mg, 1, tablet, By Mouth, Daily, # 30 tablet, Refills 0, Maintenance, 12/24/16 9:31:57 Start Date: 12/24/16 Status: Ordered docusate sodium 100 mg oral capsule 1 capsule = 100 mg, By Mouth, 2 times a day, # 60 capsule, 1 Refills, Maintenance, 10/07/22 7:43:00EST, [facility]/pharmacy #[id number], Partial fill upon patient request if [...] Gm, 6 Refills, Maintenance, 10/07/22 7:43:00 EST, [facility]/pharmacy #[id number], 150, cm, 10/07/22 7:14:00 EST, Height Start Date: 10/07/22 Status: Ordered gabapentin 100 mg oral capsule 200 mg, 2, capsule, By Mouth, 3 times a day, # 180 capsule, Refills 1, Tot. Refills 1, Maintenance,09/15/22 9:10:00 EST, Route to Pharmacy Electronically, [facility]/pharmacy #[id number], 150, cm, 09/15/22 8:51:00 EST, Height [...] Associate Professional Member Role: PCP Address: Address: [address] [place] [address]- Care Team Related Persons Name: LIS, ALLEN Address: [place] [address] Name: VIET KILPATRICK
--- OUTSIDE RECORDS SUMMARY | 2024-06-24 13:11 | XMS_ITS | Continuity of Care Document ---
Author Organization [facility] Rip lt Address [address] [place] [address]- Care Team Providers Care Police Reserves Commander Name Role Phone Raza BARAHONA, Natalia Gonzales Primary Care Physician [phone] Encounter [facility] [id number] Date(s): 09/15/22 - 09/22/22 [facility] Adult [address] [place] [address]- Encounter Diagnosis Benign hypertension(Discharge Diagnosis) - 09/15/22 Constipation(Discharge Diagnosis) - 09/15/22 Chronic lower back pain(Discharge Diagnosis) - 09/15/22 Attending Physician: Raza BARAHONA, Natalia Gonzales Referring [...] Given 1Result Comment: [facility]-[id number] 2Admin Note: declined Medications amLODIPine 2.5 mg oral tablet 2.5 mg, 1, tablet, By Mouth, Daily, replace 5mg, # 30 tablet, Refills 0, Tot. Refills 0, Maintenance, 09/15/22 9:11:00 EST, Route to Pharmacy Electronically, [facility]/pharmacy #[id number], Partial fill upon patient request [...] Gm, 6 Refills, Maintenance, 09/12/19 16:11:00 EST, [facility] # 50, 150, cm, 09/12/19 11:05:00 EST, Height Start Date: 09/12/19 Status: Ordered gabapentin 100 mg oral capsule 200 mg, 2, capsule, By Mouth, 3 times a day, # 180 capsule, Refills 1, Tot. Refills 1, Maintenance,09/15/22 9:10:00 EST, Route to Pharmacy Electronically, [facility]/pharmacy #[id number], 150, cm, 09/15/22 8:51:00 EST, [...] Clinical Service Informant Benign hypertension Discharge Diagnosis 09/15/22 Constipation Discharge Diagnosis 09/15/22 Chronic lower back pain Discharge Diagnosis 09/15/22 Vital Signs Most recent to oldest [Reference Range]: 1 Height 150 cm (09/15/22 8:51 AM) Weight 65.9 kg (09/15/22 8:51 AM) Oxygen Saturation [94-100 %] 97 % (09/15/22 8:51 AM) Pulse Rate [55-90 bpm] 79 bpm (09/15/22 8:51 AM) Body Mass Index [18.5-24.99 kg/m2] 29.29 kg/m2 *H* (09/15/22 8:51 AM) Blood Pressure [90-138/55-84 mm Hg] 125/ 75mm Hg (09/15/22 8:51 AM) Blood pressure sites Arm, left (09/15/22 8:51 AM) Weight Obtained Via Standing scale (09/15/22 8:51 AM) Social History Social History Type Response Smoking Status Never smoker entered on: 10/09/16 Sex Note * Yanet Zaragoza: PERFORM, SIGN, VERIFY Event Display: Patient Education/Instruction Authored Date: [id number] [facility] *BMP Ivan Adlt Clinical Summary Name CHEKO KHALIL Age 86 Years 1935 PCP Raza BARAHONA, Natalia Gonzales PCP Visit Date 09/15/2022 08:48:00 Additional Instructions: Scheduled Appointments?? Future Appointments ?*BMP??So??Ivan??Adlt ?[address]??[facility],??[address] ?Phone:??--?Fax:??-- ?Appt. Date:??10/07/2022?7:10 AM ?Scheduled Provider:??Natalia Person NP Follow-Up Instructions ?? With: Address: When: Natalia Person NP [address] [facility] [place] [id number] 09/15/2022 12:00 AM Comments: 2 week f/u long Diagnosis Essential (primary) hypertension; Constipation, unspecified; Low back pain, unspecified Medications: Please continue your medications until treatment is completed or stopped by your provider. Discuss any questions related to medications with your provider. Medications to Continue Taking That Have [facility]anged [id number], [address] [place] [id number], [phone] - Amlodipine (amLODIPine 2.5 mg oral tablet) 1 tab(s) Oral Daily. replace 5mg. Refills: 0. Next Dose: Medications to Continue with No Changes [id number], [address] [place] [id number], [phone] Gabapentin (gabapentin 100 mg oral capsule) 2 capsule Oral 3 times a day. Refills: 1. Next Dose: These medications were not printed or sent to your pharmacy Aspirin (aspirin 81 mg oral delayed release tablet) 1 tab(s) Oral Daily. Next Dose: Estradiol Topical (estradiol 0.1 mg/g vaginal cream) 2 gm daily at bedtime for 2 weeks then reduce to 1gm daily at bedtime. then 1 gm 2 times a week. Refills: 6. Next Dose: No Longer Take the Following Medications Docusate (docusate sodium 100 mg oral capsule) 1 capsule Oral twice a day as needed for constipation for 30 Days. Refills: 0. Famotidine (famotidine 20 mg oral tablet) 1 tab(s) Oral twice a day. Refills: 3. Allergy Info:?? NKA Medications Given This Visit Future Orders ?No future orders Vital Signs Height 150 cm Weight 65.9 kg BMI 29.29 kg/m2 Blood Pressure 125 mm Hg/75 mm Hg Temperature Pulse Rate 79 bpm Respiratory Rate 02 Sat Mode of Delivery 97 %/ You can now view a summary of your hospital visit from the comfort of your home through a free online portal called [employer]. [employer] is a website that allows you to securely view your medical information including discharge summary, medications and follow-up visits. ??You can alsosend a secure electronic message to your doctor???s office to request appointments, renew medications or just ask a question. You can enroll at [email or web address] or register during your next office visit. [...] primary care provider, you may find a [facility] provider by calling [facility] at [phone]. For information about the plan of care [...] Associate Professional Member Role: PCP Address: Address: [address] [place] [address]- Care Team Related Persons Name: ALLEN KILPATRICK Address: [place] [address] Name: VIET KILPATRICK
--- OUTSIDE RECORDS SUMMARY | 2024-06-24 13:11 | XMS_ITS | Continuity of Care Document ---
Author Organization [facility] Rip lt Address [address] [place] [address]- Care Team Providers Care Field Radio Operator Name Role Phone Raza BARAHONA, Natalia Gonzales Primary Care Physician Encounter [facility] Date(s): 10/16/22 - 11/15/22 [facility] Ivan Adult [address] [place] [address]- Allergies, Adverse Reactions, Alerts No Known Allergies [...] pneumococcal 13-valent vaccine 10/09/16 Given 1Result Comment: [facility]-[id number] 2Admin Note: declined Medications amLODIPine 2.5 mg oral tablet 1 tablet, By Mouth, Daily, # 30 tablet, 0 Refills, Maintenance, 10/13/22 14:43:00 EDT, [facility], 150, cm, 10/07/22 7:59:00 EST, Height Start Date: 10/13/22 Status: Ordered aspirin 81 mg oral delayed release tablet 81 mg, 1, tablet, By Mouth, Daily, # 30 tablet, Refills 0, Maintenance, 12/24/16 9:31:57 Start Date: 12/24/16 Status: Ordered docusate sodium 100 mg oral capsule 1 capsule = 100 mg, By Mouth, 2 times a day, # 60 capsule, 1 Refills, Maintenance, 10/07/22 7:43:00EST, [facility]/pharmacy #[id number], Partial fill upon patient [...] Gm, 6 Refills, Maintenance, 10/07/22 7:43:00 EST, [facility]/pharmacy #[id number], 150, cm, 10/07/22 7:14:00 EST, Height Start Date: 10/07/22 Status: Ordered gabapentin 100 mg oral capsule 200 mg, 2, capsule, By Mouth, 3 times a day, # 180 capsule, Refills 1, Tot. Refills 1, Maintenance,09/15/22 9:10:00 EST, Route to Pharmacy Electronically, [facility]/pharmacy #[id number], 150, cm, 09/15/22 8:51:00 [...] Associate Professional Member Role: PCP Address: Address: [address] [place] [address]- Care Team Related Persons Name: ALLEN KILPATRICK Address: [place] [address] Name: VIET KILPATRICK
--- OUTSIDE RECORDS SUMMARY | 2024-06-24 13:11 | XMS_ITS | Continuity of Care Document ---
Author Organization [facility] Rip lt Address [address] [place] [address]- Care Team Providers Care Settlement Clerk Name Role Phone Raza BARAHONA, Natalia Gonzales Primary Care Physician [phone] [place] [facility] [place](s): 09/19/21 - 12/21/21 [facility] Adult [address] [place] [address]- Attending Physician: Harper BANEGAS, Navneet Corley Allergies, Adverse Reactions, Alerts No Known Allergies Immunizations Given and Recorded Vaccine Date Status Refusal Reason influenza virus vaccine, inactivated 05/01/20 Give n influenza virus vaccine, inactivated 1 06/01/19 Gi ralph influenza virus vaccine, inactivated 05/25/18 Hayden rded Diphtheria/Tet/Pertussis, Acel (oldterm) 2 03/05/17 Given pneumococcal 13-valent vaccine 10/09/16 Given 1Result Comment: [facility]-[id number] 2Admin Note: declined Medications amLODIPine 10 mg oral tablet See Instructions, TAKE ONE TABLET BY MOUTH ONCE DAILY, # 90 tablet, 0 Refills, 09/20/21 9:15:00 EST, [facility]/pharmacy #[id number], 150, cm, 09/19/21 15:50:00 EST, Height Start Date: 09/20/21 Status: Ordered aspirin 81 mg oral delayed [...] 05/01/20 9:36:00 EDT, Route to Pharmacy Electronically, [facility] # 50, 150, cm, 05/01/20 9:15:00 EDT, Height Start Date: 05/01/20 Stop Date: 05/31/20 Status: Ordered estradiol 0.1 mg/g vaginal cream See Instructions, 2 gm daily at bedtime for 2 weeks then reduce to 1gm daily at bedtime. then 1 gm 2 times a week, # 42.5 Gm, 6 Refills, Maintenance, 09/12/19 16:11:00 EST, [facility] # 50, 150, cm, 09/12/19 11:05:00 EST, Height Start Date: 09/12/19 Status: Ordered famotidine 20 mg oral tablet 20 mg, 1, tablet, By Mouth, 2 times a day, # 60 tablet, Refills 3, Tot. Refills 3, Maintenance, 05/01/20 9:36:00 EDT, Route to Pharmacy Electronically, [facility] # 50, 150, cm, 05/01/20 9:15:00 EDT, Height Start Date: 05/01/20 Status: Ordered gabapentin 100 mg oral capsule 200 mg, 2, capsule, By Mouth, 3 times a day, # 180 capsule, Refills 1, Tot. Refills 1, Maintenance,12/20/20 11:24:00 EDT, Route to Pharmacy Electronically, [facility] # 50, 150, cm, 12/18/20 15:01:00 EDT, Height Start Date: 12/20/20 Status: Ordered hydrochlorothiazide-lisinopril 25 mg-20 mg oral tablet 1 tablet, By Mouth, Daily, # 90 tablet, 1 Refills, Maintenance, 07/19/20 13:21:00 EST, Tablet, [facility] # 50, 1 tablet By Mouth Daily, 150, cm, 05/01/20 9:47:00 EDT, Height Start Date: 07/19/20 Status: Ordered Paxlovid Rx Paxlovid Rx, See Instructions, # 30 tablet, Refills 0, Tot. Refills 0, Maintenance, 300mg nirmatrelvir (two 150mg tablets) with 100mg ritonavir (one tablet). All 3 tablets taken together twice daily for 5 days, with or without food., 12/06/21 10:53:00... Start Date: 12/06/21 Status: Ordered tiZANidine 2 mg oral tablet See Instructions, PRN, take 1-2 tablets By Mouth Every 8 hours, # 30 tablet, Refills 0, Tot. Refills 0, Maintenance, Pain , Moderate, 08/23/19 15:28:00 EST, Instructions Replace Required Details, Route to Pharmacy Electronically, [facility] # [facility],... Start Date: 08/23/19 Status: Ordered Problem List Condition Effective Dates Status Health Status Inform ant Arthritis(Confirmed) Active Benign hypertension(Confirmed) Active Chronic lower back pain(Confirmed) Active Constipation(Confirmed) Active Gout(Confirmed) Active Hyperglycemia(Confirmed) Active Obese class I(Confirmed) Active Osteopenia(Confirmed) Active Paresthesia(Confirmed) Active Social History Social History Type Response Smoking Status Never smoker entered on: 10/09/16 Sex
--- OUTSIDE RECORDS SUMMARY | 2024-06-24 13:11 | XMS_ITS | Continuity of Care Document ---
Author Organization [facility] Rip lt Address [address] [place] [address]- Care Team Providers Care Curtain Stretcher Name Role Phone Raza BARAHONA, Natalia Gonzales Primary Care Physician [phone] [place] [facility] [place](s): 08/13/23 - 08/20/23 [facility] Adult [address] [place] [address]- Attending Physician: Natalia Person NP Referring Physician: [...] vaccine 10/09/16 Given 1Result Comment: [facility]-[id number] 2Admin Note: declined Medications amLODIPine 5 mg oral tablet 5 mg, 1, tablet, By Mouth, Daily, # 30 tablet, Refills 2, Tot. Refills 2, Maintenance, 07/08/23 11:53:00 EST, Route to Pharmacy Electronically, [facility]/pharmacy #[id number], Partial fill upon patient request if the prescription is for a schedule II opioid drug.... Start Date: 07/08/23 Status: Ordered aspirin 81 mg oral delayed release tablet 81 mg, 1, tablet, By Mouth, Daily, # 30 tablet, Refills 0, Maintenance, 12/24/16 9:31:57 Start Date: 12/24/16 Status: Ordered bisacodyl 10 mg rectal suppository 1 supp = 10 mg, Rectally, Daily, PRN for constipation, # 10 supp, 0 Refills, Acute 08/23/23 8:02:00EST, 08/13/23 8:01:00 EST, Suppository, [facility]/pharmacy #[id number], Partial fill upon patient request if the prescription is for a schedule II opioid drug., 15... Start Date: 08/13/23 Stop Date: 08/23/23 Status: Ordered estradiol 0.1 mg/g vaginal cream See Instructions, 2 gm daily at bedtime for 2 weeks then reduce to 1gm daily at bedtime. then 1 gm 2 times a week, # 42.5 Gm, 6 Refills, Maintenance, 10/07/22 7:43:00 EST, [facility]/pharmacy #[id number], 150, cm, 10/07/22 7:14:00 EST, Height Start Date: 10/07/22 Status: Ordered gabapentin 100 mg oral capsule 200 mg, 2, capsule, By Mouth, 3 times a day, # 180 capsule, Refills 1, Tot. Refills 1, Maintenance,08/13/23 8:04:00 EST, Route to Pharmacy Electronically, [facility]/pharmacy #[id number], 150, cm, 08/13/23 7:50:00 EST, Height, [...] Active Type II diabetes mellitus Confirmed Active Vital Signs Most recent to oldest [Reference Range]: 1 2 3 Height 150 cm (08/13/23 8:24 AM) 150 cm (08/13/23 7:50 AM) 150 cm (08/13/23 7:43 AM) Weight 68.7 kg (08/13/23 7:43 AM) Oxygen Saturation [94-100 %] 97 % (08/13/23 7:43 AM) Pulse Rate [55-90 bpm] 74 bpm (08/13/23 7:43 AM) Body Mass Index [18.5-24.99 kg/m2] 30.53 kg/m2 *>HHI* (08/13/23 7:43 AM) Blood Pressure [90-138/55-84 mm Hg] 168/74mm Hg *H* (08/13/23 8:24 AM) 156/76mm Hg *H* (08/13/23 7:50 AM) 163/78mm Hg *H* (08/13/23 7:43 AM) Mode of Delivery (Oxygen) Room air (08/13/23 7:43 AM) Blood pressure sites Arm, left (08/13/23 7:50 AM) Arm, left (08/13/23 7:43 AM) Weight Obtained Via Standing scale (08/13/23 7:43 AM) Social History Social History Type Response Smoking Status Never smoker entered on: 10/09/16 Sex Note * Gisela Law: PERFORM, SIGN, VERIFY Event Display: Patient Education/Instruction Authored Date: [id number] [facility] *BMP So Ivan Cisneros Clinical Summary Name CHEKO KHALIL Age 87 Years 1935 PCP Raza BARAHONA, [id number] Visit Date 08/13/2023 07:40:00 Additional Instructions: Scheduled Appointments?? Future Appointments ?*BMP??So??Ivan??Adlt ?[address] ?Phone:??--?Fax:??-- ?Appt. Date:??09/17/2023?9:50 AM ?Scheduled Provider:??Natalia Person NP Follow-Up Instructions ?? With: Address: When: Follow up, 1 Month Comments: long Diagnosis Medications: Please continue your medications until treatment is completed or stopped by your provider. Discuss any questions related to medications with your provider. New Medications [id number], [address] [place] [id number], [phone] Bisacodyl (bisacodyl 10 mg rectal suppository) 1 suppository(ies) Per rectum Daily as needed for constipation. Refills: 0. Next Dose: Medications to Continue with No Changes [facility], [address] [place] [id number], [phone] Gabapentin (gabapentin 100 mg oral capsule) 2 [...] times a week. Refills: 6. Next Dose: Allergy Info:?? NKA Medications Given This Visit Future Orders ?No future orders Vital Signs Height 150 cm Weight 68.7 kg BMI 30.53 kg/m2 Blood Pressure 156 mm Hg/76 mm Hg Temperature Pulse Rate 74 bpm Respiratory Rate 02 Sat Mode of Delivery 97 %/Room air You can now view a summary of your hospital visit from the comfort of your home through a free online portal called [employer]. [employer] is a website that allows you to securely view your medical information including discharge summary, medications and follow-up visits. ??You can alsosend a secure electronic message to your doctor???s office to request appointments, renew medications or just ask a question. You can enroll at [email or web address] or register during your next office visit. [...] find a [facility] provider by calling [facility] [facility] at [phone]. [facility], in keeping with [facility] guidance, no longer requires face masks [...] Professional Member Role: PCP Address: Address: [address] [place] [address]- Care Team Related Persons Name: ALLEN KILPATRICK Address: [place] [address] Name: VIET KILPATRICK
--- OUTSIDE RECORDS SUMMARY | 2024-06-24 13:11 | XMS_ITS | Continuity of Care Document ---
Author Organization [facility] Rip lt Address [address] [place] [address]- Care Team Providers Care Night Time Nanny Name Role Phone Raza BARAHONA, Natalia Gonzales Primary Care Physician [phone] [place] [facility] [place] 11/24[place]22 - 12/24/22 [facility] Adult [address] [place] [address]- Allergies, Adverse Reactions, Alerts No Known Allergies [...] 13-valent vaccine 10/09/16 Given 1Result Comment: [facility]-[id number] 2Admin Note: declined Medications amLODIPine 2.5 mg oral tablet 1 tablet, By Mouth, Daily, # 30 tablet, 0 Refills, Maintenance, 10/13/22 14:43:00 EDT, [facility], 150, cm, 10/07/22 7:59:00 EST, Height Start Date: 10/13/22 Status: Ordered aspirin 81 mg oral delayed release tablet 81 mg, 1, tablet, By Mouth, Daily, # 30 tablet, Refills 0, Maintenance, 12/24/16 9:31:57 Start Date: 12/24/16 Status: Ordered docusate sodium 100 mg oral capsule 1 capsule = 100 mg, By Mouth, 2 times a day, # 60 capsule, 1 Refills, Maintenance, 10/07/22 7:43:00EST, [facility]/pharmacy #0693, Partial fill upon [...] Gm, 6 Refills, Maintenance, 10/07/22 7:43:00 EST, [facility]/pharmacy #0693, 150, cm, 10/07/22 7:14:00 EST, Height Start Date: 10/07/22 Status: Ordered gabapentin 100 mg oral capsule 200 mg, 2, capsule, By Mouth, 3 times a day, # 180 capsule, Refills 1, Tot. Refills 1, Maintenance,09/15/22 9:10:00 EST, Route to Pharmacy Electronically, [facility]/pharmacy #[id number], 150, cm, 09/15/22 8:51:00 EST, [...] Associate Professional Member Role: PCP Address: Address: [address] [place] [address]- [place] Care Team Related Persons Name: ALLEN KILPATRICK Address: [place] [address] Name: VIET KILPATRICK
== END 2024-06-20 17:25 | disposition home or self-care (01) ==
PROVIDERS: Physician Assistant; Emergency Provider Emergency Medicine Emergency Medical Services
DX: R10.30 Lower abdominal pain, unspecified (principal); K59.00 Constipation, unspecified; R30.0 Dysuria; I10 Essential (primary) hypertension; Z79.899 Other long term (current) drug therapy
CPT/HCPCS: 36415; 74176; 80048; 80076; 81001; 83690; 83735; 85025; 99284

== ENCOUNTER 2024-08-08 14:21 | Outpatient (AMB) | payer MEDICARE, SELFPAY ==
--- NOTE | 2024-08-08 12:32 | MHC.OFFVIS ---
Intake Visit Reasons: dysuria Intake Note: New patient Presents for ER Follow up Dysuria/Cystitis Any Urology Medication:Pyridium Antibiotic Allergies:None Blood Thinners: None Tobacco Sample Puller Required: No Accompanied by: Self / Same As Patient Allergies No Known Allergies [No Known Allergies*] Allergy (Verified 08/08/24 14:27) Medication List - Last Reconciled 08/08/24 by Deandra Crowell MD amlodipine 5 mg PO DAILY clobetasol 0.05% 1 appl topically use bid for 10 days then prn burning; doxycycline hyclate 100 mg PO BID 7 days polyethylene glycol 3350 (Miralax) 17 grams PO DAILY HPI Comments Details: Nannette is an 88-year-old female she was in the emergency room on 06/20/2024 for lower abdominal pain and dysuria. CT at that time no acute abnormality. Urine culture was not sent. The patient was given Pyridium for 3 days. She states the medication did not help much. She states that she saw Dr. Karl Garcia in the past for this problem. She states that antibiotics did help her. I will send urine for culture cytology. I will empirically place her on doxycycline 100 mg twice a day for 7 days. She is also complaining of burning on outside of the vagina empirically place Temovate ointment. I will schedule an outpatient cystoscopy pelvic exam at time. The patient states that she was on gabapentin also in the past with unclear if this was prescribed by the urologist or for in other condition. CTAP-06/20/2024 no acute abnormality [facility] Medical History HTN (hypertension) Review of Systems Const All systems reviewed & are unremarkable except as noted in HPI and below Reports no additional complaints Eyes Reports no additional complaints ENT Reports no additional complaints Card Reports no additional complaints Resp Reports no additional complaints GI Reports no additional complaints Reports as per HPI Musc Reports no additional complaints Skin/Breast Reports system reviewed and no additional complaints, except as documented Neuro Reports no additional complaints Psych Reports no additional complaints Endo Reports no additional complaints Martín/Lymph Reports no additional complaints Aller/Immun Reports no additional complaints Physical Exam Const General: cooperative, healthy appearing and no acute distress Orientation/consciousness: patient oriented x3 HEENT Head: Yes normal to inspection, Yes normocephalic and Yes atraumatic Eyes Conjunctivae: conjunctivae normal Neck Neck: Yes normal visual inspection and Yes trachea midline Chest Chest palpation & inspection: normal inspection of the chest Resp Effort & Inspection: normal respiratory effort Cardio Rate: regular rate GI Inspection: Yes normal to inspection Neuro General: patient oriented x3 Psych Appearance: grossly normal Results AMB Urinalysis, Automated UA Leukoctes 0 Carlitos/uL Last Edit by Gisela Landon [facility] on 08/08/24 14:43 UA Nitrite Negative Last Edit by Gisela Landon A on 08/08/24 14:43 UA Urobilinogen 0.2 mg/dL Last Edit by Gisela Landon A on 08/08/24 14:43 UA Protein 15 mg/dL Last Edit by Gisela Landon A on 08/08/24 14:43 UA pH 5.5 Last Edit by Gisela Landon A on 08/08/24 14:43 UA Blood 0 Lorenzo/uL Last Edit by Gisela Landon, [facility] on 08/08/24 14:43 UA Specific [place] 1.020 Last Edit by Gisela Landon A on 08/08/24 14:43 UA Ketone Negative Last Edit by Gisela Landon, [facility] on 08/08/24 14:43 UA Bilirubin 0 mg/dL Last Edit by Gisela Landon A on 08/08/24 14:43 UA Glucose 0 mg/dL Last Edit by Gisela Landon, A on 08/08/24 14:43 Results Reviewed Results Reviewed: Laboratory Last Values Urine pH (Auto) 5.5 08/08/24 14:40 Specific [place] (Auto) 1.020 08/08/24 14:40 Urine Protein (Auto) 15 mg/dL 08/08/24 14:40 Glucose (UA)(Auto) 0 mg/dL 08/08/24 14:40 Urine Ketones (Auto) Negative 08/08/24 14:40 Urine Blood (Auto) 0 Lorenzo/uL 08/08/24 14:40 Urine Nitrite (Auto) Negative 08/08/24 14:40 Urine Bilirubin (Auto) 0 mg/dL 08/08/24 14:40 Urine Urobilinogen (Auto) 0.2 mg/dL 08/08/24 14:40 Leukocyte Esterase (Auto) 0 Carlitos/uL 08/08/24 14:40 Date of Service: 06/20/24 CT ABDOMEN AND PELVIS WITHOUT CONTRAST CLINICAL INFORMATION: Lower abdominal pain. Dysuria. Constipation. COMPARISON: CT abdomen and pelvis July 08, 2023 TECHNIQUE: Multidetector volumetric imaging was performed from the superior aspect of the liver through the pubic symphysis. Sagittal and coronal reformatted images were obtained on the technologist's workstation. This CT examination was performed using dose optimization techniques as appropriate, variously including the following: *Automated exposure control *Adjustment of mA and/or kV according to patient size (this includes techniques or standardized protocols for targeted exams where dose is matched to indication/reason for exam; i.e. extremities or head) *Use of iterative reconstruction technique DLP: 492 mGy-cm FINDINGS: LUNG BASES: The visualized lung bases are unremarkable. LIVER, GALLBLADDER, AND BILIARY TREE: The liver is normal in size, shape, and attenuation. No focal hepatic lesion or biliary ductal dilatation is present. The gallbladder is unremarkable with no evidence of radiopaque gallstones, gallbladder wall thickening, or obvious pericholecystic inflammatory changes. PANCREAS: Unremarkable. SPLEEN: Unremarkable. ADRENAL GLANDS: Unremarkable. KIDNEYS AND URETERS: The kidneys are normal in size, shape, and attenuation. No hydronephrosis, hydroureter, or calculi seen. No perinephric stranding. BLADDER: Unremarkable. GASTROINTESTINAL TRACT: There are numerous diverticula of the sigmoid and descending colon. There is no diverticulitis. There is no bowel wall thickening /edema. There is no bowel obstruction. There is a moderate volume of stool in the colon. The appendix is normal . The small bowel loops are unremarkable. The stomach is normal. There is no hiatal hernia. ABDOMINAL WALL: No significant hernia is appreciated. LYMPH NODES: Normal. VASCULAR: Scattered vascular calcifications of the distal aorta and iliac arteries. There is no aneurysm. PELVIC VISCERA: Unremarkable. OSSEOUS STRUCTURES: Advanced multilevel degenerative spondylosis spine. IMPRESSION: 1. No acute abnormality CT scan abdomen pelvis. 2. Diverticulosis of colon. No acute change of the bowel. Assessment & Plan Assessment & Plan (1) Bladder pain: Code(s): R39.89 - Other symptoms and signs involving the genitourinary system Category: Medical (2) Dysuria: Code(s): R30.0 - Dysuria Category: Medical (3) Atrophic vaginitis: Code(s): N95.2 - Postmenopausal atrophic vaginitis Category: Medical Plan Urine for culture and cytology, empirical treatment with doxycycline and Temovate cream. Follow-up office cystoscopy, pelvic exam bedtime. Orders: Orders AMB Urinalysis Automated Today Z13.9 - Encounter for screening, unspecified Urine Cytology Today R30.0 - Dysuria Urine Culture Today R30.0 - Dysuria Medications: New doxycycline hyclate 100 mg PO BID 7 days 14 tabs 0RF clobetasol 0.05% 1 appl topically use bid for 10 days then prn burning; 60 grams 1RF Discontinued azithromycin Discontinued Reason: Patient Completed Course For 250 mg dose pack: take 500 mg today (day 1), then 250 mg for 4 days (days 2-5) 6 tabs 0RF prednisone Discontinued Reason: Patient no longer taking 40 mg (2 x 20 mg) PO DAILY 4 days 8 tabs 0RF Patient Instructions: The patient had an opportunity to ask questions regarding treatment plan. The patient expressed understanding and agreement with the above treatment plan. The patient is aware they should contact our office by phone for worsening of their current condition or the appearance of new symptoms. Compliance is encouraged with any medications and followup testing that is ordered. It is a privilege to be allowed the opportunity to participate in the urologic care of your patient. If you have any questions or concerns regarding treatment for the above conditions please do not hesitate to contact me. The office telephone contact is [phone]. This note is constructed in part using voice recognition software. While every effort has been made to ensure accuracy roll coverer errors may have been included. Yours sincerely, Deandra Crowell MD Coding Level of Care Code New Pt Level 4 (14579) Diagnoses Bladder pain R39.89 Dysuria R30.0 Atrophic vaginitis N95.2
== END 2024-08-08 15:06 | disposition home or self-care (01) ==
LOC: HO.HUSH 14:21
PROVIDERS: Visit Provider Urology
DX: R39.89 Other symptoms and signs involving the genitourinary system (principal); R30.0 Dysuria; N95.2 Postmenopausal atrophic vaginitis; Z13.9 Encounter for screening, unspecified
CPT/HCPCS: 99204

== ENCOUNTER 2024-08-08 14:21 | Outpatient (REF) | payer MEDICARE, SELFPAY ==
[2024-08-08 17:21] LABS: Urine Cytology See Pathology rpt
== END 2024-08-08 14:22 | disposition home or self-care (01) ==
LOC: HO.LAB 14:21
PROVIDERS: Visit Provider Urology
DX: R30.0 Dysuria (principal); N95.2 Postmenopausal atrophic vaginitis; R39.89 Other symptoms and signs involving the genitourinary system
CPT/HCPCS: 81003; 87086; 88112; 99202

== ENCOUNTER 2024-09-29 13:28 | Outpatient (AMB) | payer MEDICARE, SELFPAY ==
--- NOTE | 2024-09-29 13:33 | A.OFFVIS_ITS ---
Intake Visit Reasons: cysto/Pelvic Exam(Bladder Pain) Intake Note: Patient is present for cystoscopy and pelvic exam Urology Meds: clobetasol, doxycyline Antibiotic Allergies: no Blood Thinners: none URO G-HD Disposable Cystoscope LOT:[id number] EXP: 12/09/26 Radiologic Technology Teacher Required: No Accompanied by: Self / Same As Patient Allergies No Known Allergies [No Known Allergies*] Allergy (Verified 09/29/24 13:47) HPI Comments Details: 09/29/24-- 89-year-old female presenting primarily for a scheduled office cystoscopy and evaluation of ongoing urinary symptoms, specifically concerning a burning sensation and vaginal irritation. Her recent urinary symptoms include persistent irritation and burning, particularly following urination or prolonged sitting. The patient noted some relief with previously prescribed oral medication but reported the inability to afford the corresponding topical treatment. Urinary Symptoms Review - Burning sensation, exacerbated with urination or prolonged sitting Results - Tests and diagnostics: - CT scan on June 20, 2024, negative for acute abnormalities - Urine cytology negative for malignant cells 09/29/24--Cystoscopy findings: WNL, no suspicious bladder lesions visualized 08/08/24--Nannette is an 88-year-old female she was in the emergency room on 06/20/2024 for lower abdominal pain and dysuria. CT at that time no acute abnormality. Urine culture was not sent. The patient was given Pyridium for 3 days. She states the medication did not help much. She states that she saw Dr. Karl Garcia in the past for this problem. She states that antibiotics did help her. I will send urine for culture cytology. I will empirically place her on doxycycline 100 mg twice a day for 7 days. She is also complaining of burning on outside of the vagina empirically place Temovate ointment. I will schedule an outpatient cystoscopy pelvic exam at time. The patient states that she was on gabapentin also in the past with unclear if this was prescribed by the urologist or for in other condition. CTAP-06/20/2024 no acute abnormality [facility] Medical History HTN (hypertension) Review of Systems Const All systems reviewed & are unremarkable except as noted in HPI and below Reports no additional complaints Eyes Reports no additional complaints ENT Reports no additional complaints Card Reports no additional complaints Resp Reports no additional complaints GI Reports no additional complaints Reports as per HPI Musc Reports no additional complaints Skin/Breast Reports system reviewed and no additional complaints, except as documented Neuro Reports no additional complaints Psych Reports no additional complaints Endo Reports no additional complaints Martín/Lymph Reports no additional complaints Aller/Immun Reports no additional complaints Office Procedures Cystoscopy Consent Discussed risk and benefit or proposed procedure with the patient. Information consent for procedure given to the patient. Discussed technical aspects, risks, benefits and alternatives in full. Addressed all of the patient's questions and concerns regarding the procedure. The patient demonstrated knowledge and understanding. They wish to proceed with this procedure. Preparation The patient was prepped in the usual manner. A wastewater treatment plant chemist was present and in the room. Genitalia was prepped with betadine solution in a sterile manner. Lidocaine Jelly 2% was placed into the urethra and 16Fr flexible Olympus cystoscope was inserted into the meatus after adequate lubrication. Time out per protocol performed. Bladder Inspection Bladder Inspection: The bladder was inspected in its entirety with utilization retroflexion displaying: Tumor(s): no suspicious bladder lesions visualized Trabeculation: Mild Mucosal Erthema: NA Orifices: normal shape and position Urethra: normal Cystoscopy findings: WNL, no suspicious bladder lesions visualized [id number] DISPOSABLE SCOPE URO-G FLEXIBLE SCOPE Procedure code (CPT) selection complete Office Meds lidocaine HCl 2 % mucosal jelly in applicator Performing Provider: Deandra Crowell MD [facility] Administered by: Imani Arrieta RN on 09/29/24 13:51 Dose Route Admin Location Dispensed Lot Number Expiration Date [place] [employer] 10 mL intra-urethral 10 mL ciprofloxacin HCl 500 mg tablet Performing Provider: Deandra Crowell MD [facility]forming [facility] Administered by: Imani Arrieta RN on 09/29/24 13:51 Dose Route Admin Location Dispensed Lot Number Expiration Date [place] [employer] 500 mg PO 1 tab Results AMB Urinalysis, Automated UA Leukoctes 0 Carlitos/uL Last Edit by Deidre Fournier MA on 09/29/24 13:45 UA Nitrite Negative Last Edit by Deidre Fournier MA on 09/29/24 13:45 UA Urobilinogen 0.2 mg/dL Last Edit by Deidre Fournier MA on 09/29/24 13:45 UA Protein 0 mg/dL Last Edit by Deidre Fournier MA on 09/29/24 13:45 UA pH 6.0 Last Edit by Deidre Fournier MA on 09/29/24 13:45 UA Blood 0 Lorenzo/uL Last Edit by Deidre Fournier MA on 09/29/24 13:45 UA Specific [place] 1.010 Last Edit by Deidre Fournier MA on 09/29/24 13:45 UA Ketone Negative Last Edit by Deidre Fournier MA on 09/29/24 13:45 UA Bilirubin 0 mg/dL Last Edit by Deidre Fournier MA on 09/29/24 13:45 UA Glucose 0 mg/dL Last Edit by Deidre Fournier MA on 09/29/24 13:45 Results Reviewed Results Reviewed: Laboratory Last Values Urine pH (Auto) 6.0 09/29/24 13:44 Specific [place] (Auto) 1.010 09/29/24 13:44 Urine Protein (Auto) 0 mg/dL 09/29/24 13:44 Glucose (UA)(Auto) 0 mg/dL 09/29/24 13:44 Urine Ketones (Auto) Negative 09/29/24 13:44 Urine Blood (Auto) 0 Lorenzo/uL 09/29/24 13:44 Urine Nitrite (Auto) Negative 09/29/24 13:44 Urine Bilirubin (Auto) 0 mg/dL 09/29/24 13:44 Urine Urobilinogen (Auto) 0.2 mg/dL 09/29/24 13:44 Leukocyte Esterase (Auto) 0 Carlitos/uL 09/29/24 13:44 Date of Service: 06/20/24 CT ABDOMEN AND PELVIS WITHOUT CONTRAST CLINICAL INFORMATION: Lower abdominal pain. Dysuria. Constipation. COMPARISON: CT abdomen and pelvis July 08, 2023 TECHNIQUE: Multidetector volumetric imaging was performed from the superior aspect of the liver through the pubic symphysis. Sagittal and coronal reformatted images were obtained on the technologist's workstation. This CT examination was performed using dose optimization techniques as appropriate, variously including the following: *Automated exposure control *Adjustment of mA and/or kV according to patient size (this includes techniques or standardized protocols for targeted exams where dose is matched to indication/reason for exam; i.e. extremities or head) *Use of iterative reconstruction technique DLP: 492 mGy-cm FINDINGS: LUNG BASES: The visualized lung bases are unremarkable. LIVER, GALLBLADDER, AND BILIARY TREE: The liver is normal in size, shape, and attenuation. No focal hepatic lesion or biliary ductal dilatation is present. The gallbladder is unremarkable with no evidence of radiopaque gallstones, gallbladder wall thickening, or obvious pericholecystic inflammatory changes. PANCREAS: Unremarkable. SPLEEN: Unremarkable. ADRENAL GLANDS: Unremarkable. KIDNEYS AND URETERS: The kidneys are normal in size, shape, and attenuation. No hydronephrosis, hydroureter, or calculi seen. No perinephric stranding. BLADDER: Unremarkable. GASTROINTESTINAL TRACT: There are numerous diverticula of the sigmoid and descending colon. There is no diverticulitis. There is no bowel wall thickening /edema. There is no bowel obstruction. There is a moderate volume of stool in the colon. The appendix is normal . The small bowel loops are unremarkable. The stomach is normal. There is no hiatal hernia. ABDOMINAL WALL: No significant hernia is appreciated. LYMPH NODES: Normal. VASCULAR: Scattered vascular calcifications of the distal aorta and iliac arteries. There is no aneurysm. PELVIC VISCERA: Unremarkable. OSSEOUS STRUCTURES: Advanced multilevel degenerative spondylosis spine. IMPRESSION: 1. No acute abnormality CT scan abdomen pelvis. 2. Diverticulosis of colon. No acute change of the bowel. Assessment & Plan Assessment & Plan (1) Bladder pain: Code(s): R39.89 - Other symptoms and signs involving the genitourinary system Category: Medical (2) Dysuria: Code(s): R30.0 - Dysuria Category: Medical (3) Atrophic vaginitis: Code(s): N95.2 - Postmenopausal atrophic vaginitis Category: Medical Plan Plan The management plan for the patient's vaginal irritation includes using [id number] A&D or Desitin ointment to manage symptoms effectively. She did not fill prescription for Temovate cream due to cost prohibitions. follow-up in six months to evaluate ongoing treatment efficacy and reassessment. Orders: Orders AMB Urinalysis Automated 09/29/24 Z13.9 - Encounter for screening, unspecified AMB Cystoscopy 09/29/24 R39.89 - Other symptoms and signs involving the genitourinary system Patient Instructions: The patient had an opportunity to ask questions regarding treatment plan. The patient expressed understanding and agreement with the above treatment plan. The patient is aware they should contact our office by phone for worsening of their current condition or the appearance of new symptoms. Compliance is encouraged with any medications and followup testing that is ordered. It is a privilege to be allowed the opportunity to participate in the urologic care of your patient. If you have any questions or concerns regarding treatment for the above conditions please do not hesitate to contact me. The office telephone contact is [phone]. This note is constructed in part using voice recognition software. While every effort has been made to ensure accuracy winter sports manager errors may have been included. Yours sincerely, Deandra Crowell MD Scribe Plan - Not visible on output: Patient was informed and verbally consented to the use of an ambient scribe for clinic note documentation during this visit. Coding Level of Care Code Procedure Only Diagnoses Bladder pain R39.89 Dysuria R30.0 Atrophic vaginitis N95.2 CPT Codes Cystoscopy - CPT: 72074-[id number] ([id number])
== END 2024-09-29 14:26 | disposition home or self-care (01) ==
LOC: HO.HUSH 13:28
PROVIDERS: Visit Provider Urology
DX: R30.0 Dysuria (principal); R39.89 Other symptoms and signs involving the genitourinary system; N95.2 Postmenopausal atrophic vaginitis
CPT/HCPCS: 52000; 99213

== ENCOUNTER → 2024-09-29 13:28 | Outpatient (BNVA) | payer MEDICARE, SELFPAY | PROVIDERS: Visit Provider Urology | DX: R39.89 Other symptoms and signs involving the genitourinary system (principal); R30.0 Dysuria; N95.2 Postmenopausal atrophic vaginitis | CPT/HCPCS: 52000; 81003; 99212 ==